=== PATIENT | male | born 1960 | race Caucasian/White ===

== ENCOUNTER 2019-01-25 00:34 | Outpatient (CLI) | payer MEDICAID, SELFPAY ==
--- NOTE | 2019-01-25 10:23 | DI.RAD_ITS ---
SYMPTOMS/DIAGNOSIS: SHOULDER PAIN, REDUCED RANGE OF MOTION, HX OVERUSE INJURY, PECTORALIS TENDERNESS, BONY EVAL FOR OA S29.011A, M25.512 LEFT SHOULDER: No fracture or dislocation is seen. The glenohumeral joint space is well maintained. There is no significant AC joint spurring. Scoliosis is seen in the upper thoracic spine. IMPRESSION: No acute abnormality.
[2019-01-25 11:13] LABS: HCT 43.9 % (40.0-50.0); HGB 15.2 g/dL (13.5-17.5); Mean Corp. HGB Concentration 34.6 g/dL (32.0-36.0); Mean Corpuscular Hemoglobin 31.1 pg (27.0-33.0); Platelet Count 151 x1000/uL (130-400); RBC 4.88 m/cumm (4.50-6.00); RBC Distribution Width 13.6 % (11.8-14.1); White Blood Cell Count 6.54 k/cumm (4.4-10.8)
[2019-01-25 11:56] LABS: Cholesterol 238 mg/dL (50-200)
[2019-01-25 12:02] LABS: ALT 136 U/L (12-78); AST 69 U/L (15-37); Albumin 3.9 g/dL (3.4-5.0); Alkaline Phosphatase 94 U/L (46-116); Anion Gap 9.3 mmol/L (3-11); BUN 13 mg/dL (7-18); Bilirubin, Total 0.4 mg/dL (0.2-1.0); CO2 27.7 mmol/L (21.0-32.0); CREATININE 0.91 mg/dL (0.70-1.30); Calcium 8.8 mg/dL (8.5-10.1); Chloride 102 mmol/L (98-107); Glucose 100 mg/dL (70-100); Potassium 4.4 mmol/L (3.5-5.1); Sodium 139 mmol/L (136-145); Total Protein 7.5 g/dL (6.4-8.2)
== END 2019-01-25 00:54 ==
PROVIDERS: PCP Student in an Organized Health Care Education/Training Program; Visit Provider Student in an Organized Health Care Education/Training Program
DX: M25.512 Pain in left shoulder (principal); N28.9 Disorder of kidney and ureter, unspecified; R06.02 Shortness of breath; R53.83 Other fatigue; Z13.220 Encounter for screening for lipoid disorders; Z79.1 Long term (current) use of non-steroidal anti-inflammatories (NSAID); Z13.1 Encounter for screening for diabetes mellitus
CPT/HCPCS: 36415; 80053; 85027; 73030; 82465

== ENCOUNTER 2019-03-24 11:22 | Outpatient (REF) | payer MEDICAID, SELFPAY ==
--- NOTE | 2019-03-24 10:00 | SKI_PTH ---
PATIENT: Sohan Damon LOC: [facility] U#:[id number] AGE/SX: 58/M ROOM: RE03/24/[address]: Deana Mendez : 1960 BED: DIS: 03/24/2019 SPEC #: [id number] RECD: 03/24/19 12:48 STATUS: RACHEL REQ #: [id number] LAURI: 03/24/19 10:[address]: Deana Mendez DEPT: Surgical Specimen RECD BY: Teresa Rodriguez ENTERED: 03/24/19 12:49 SP TYPE: PACO CHAND DR: Mignon Stewart DO Tissues: 1 - SKIN BIOPSY(SHAVE/PUNCH) Procedures: SKIN LEVEL 4 Comments: [id number]
== END 2019-03-24 11:42 ==
LOC: LBN 11:22
PROVIDERS: PCP Student in an Organized Health Care Education/Training Program; Visit Provider Surgery
DX: C44.319 Basal cell carcinoma of skin of other parts of face (principal)
CPT/HCPCS: 88305

== ENCOUNTER 2019-12-13 01:07 | Outpatient (CLI) | payer MEDICAID, SELFPAY ==
--- NOTE | 2019-12-13 10:14 | DI.US_ITS ---
EXAM: US HERNIA CLINICAL HISTORY: LLW/Left inguinal region r/o HERNIA R19.00 ABDOMINAL AND PELVIC SWELLING TECHNIQUE: Ultrasound performed using standard protocol. COMPARISON: No exams were available for comparison FINDINGS: Sonographic evaluation of the left inguinal region was performed. No sonographic evidence of an ingu inal hernia is noted. IMPRESSION: No sonographic evidence of a left inguinal hernia.
== END 2019-12-13 01:27 ==
PROVIDERS: PCP Student in an Organized Health Care Education/Training Program; Visit Provider Student in an Organized Health Care Education/Training Program
DX: R10.32 Left lower quadrant pain (principal); R19.04 Left lower quadrant abdominal swelling, mass and lump
CPT/HCPCS: 76857

== ENCOUNTER 2020-01-24 08:15 | Day surgery (SDC) | payer MEDICAID, SELFPAY ==
[2020-01-24] VITALS (9 sets, daily range): BP systolic 109–127; BP diastolic 71–96; PULSE 72–82; RESP 16–20; TEMP 36.4–36.7; O2SAT 92–96
--- NOTE | 2020-01-24 | PENILE_PTH ---
PATIENT: Sohan Damon LOC: [facility] U#:[id number] AGE/SX: 59/M ROOM: RE01/24/[address]: Deana Mendez : 1960 BED: DIS: 01/24/2020 SPEC #: [id number] RECD: 01/24/20 18:07 STATUS: RACHEL REQ #: [id number] LAURI: 01/24/20 00:[address]: Deana Mendez DEPT: Surgical Specimen RECD BY: Teresa Rodriguez ENTERED: 01/24/20 18:07 SP TYPE: PENILE OTHR DR: Mignon Stewart DO Tissues: 1 - PENILE CYST Procedures: GROSS AND MICRO LEVEL 3 Comments: [id number] (HPV/HL - [id number])
[2020-01-24] MEDS: Lactated Ringers 1,000 ML 80 ML IV ×2 (09:02→13:17)
[2020-01-24] MEDS: Acetaminophen 500 MG TAB 1000 MG PO (09:07)
[2020-01-24] MEDS: Gabapentin 300 MG CAP PO (09:07)
[2020-01-24] MEDS: ceFAZolin 2 GM/50 ML BAG IVPB (11:46)
[2020-01-24] MEDS: Bacitracin 30 GM TUBE (13:18)
--- NOTE | 2020-01-24 13:51 | W.PM.DSUDISC ---
Discharge Plan Disposition Patient Disposition: HOME Condition: Good Discharge Details Reason For Visit: (L) INGUINAL HERNIA Attending Provider: Deana Mendez Primary Care Provider: Mignon Stewart Home Meds and New Rx's Prescriptions: New ibuprofen [IBU-200] 200 mg tablet 600 mg PO Q6H PRN (Reason: pain (scale score 4-6)) Qty: 90 RF: 0 hydrocodone-acetaminophen [Medi[place]] 5-325 mg tablet 1 tab PO Q6H PRN (Reason: pain) Qty: 20 RF: 0 Continued albuterol sulfate [ProAir HFA] 90 mcg/actuation HFA aerosol inhaler 2 puff Inhalation Q4H PRN Qty: 1 RF: 2 (DME) Space Chamber Plus 1 EACH spacer Miscellaneous Qty: 1 RF: 0 fluticasone propion-salmeterol [Advair Diskus] 250-50 mcg/dose blister with device 1 inh IH BID Qty: 60 RF: 6 nystatin 100,000 unit/mL Suspension 10 ml PO BID RF: 0 fluticasone propion-salmeterol [Advair Diskus] 100-50 mcg/dose Blister With Device 1 inh INHALATION BID RF: 0 Discontinued naproxen sodium [Aleve] 220 mg capsule 220 mg PO BID PRNRF: 0 Discharge Instructions Additional Instructions: Dr. Mendez HERNIA REPAIR ? POSTOPERATIVE INSTRUCTIONS Patients who have this type of surgery can usually be expected to return to work within two weeks and have minimal amounts of discomfort. ? ACTIVITY: The day of surgery should be spent resting. However, you can be up for short periods of time, I.E., going to the bathroom or kitchen. Avoid lifting or straining. On the day following surgery, you can be up and about as desired. ? LIFTING: Restrict your lifting to no more than five (5) pounds for the first week following surgery. ? DIET: There are no dietary restrictions following surgery. However, you may want to start with small amounts of liquids to avoid nausea the day of surgery. ? INCISION CARE: After 24 hours you may shower. The dressing may be replaced for comfort, but is not necessary. An ice bag may be applied to the incision for 72 hours following surgery. Apply antibiotic ointment to penis 2-3x's per day. keep the incisions moist. ? SIGNS OF INFECTION: It is not unusual to have some black and blue discoloration of the skin around the incision, but also scrotum and penis. It will slowly disappear. If you have any increased redness, drainage, fever (above 100 degrees), please contact your doctor for an examination. ? DISCOMFORT: You may expect to have some mild discomfort at the incision sight. If severe pain develops you should contact your doctor for further instructions. ? URINATION: Patients who have surgery occasionally have problems urinating. If you experience problems and are not able to urinate within 6 hours following your surgery, please call your doctor immediately or go to your nearest Emergency Room for evaluation. ? DRIVING: NO driving for five (5) days after surgery ? MEDICATIONS: Alternate Tylenol 1000mg by mouth every 8hours and Ibuprofen 600mg every 6hours. Take the Tylenol and ibuprofen continuously for the first 72hrs- not just when you have pain. Use the Medi[place] for breakthrough pain. Use ice 20 minutes off/on continuously for the first 72hours. If you are taking narcotic pain medication, follow the instructions on the label and do not drive. Pain medications can make you very constipated. Make sure you are moving your bowels daily. If not, take Miralax, milk of magnesia or magnesium citrate. ? REPORT: Unusual swelling, severe pain, unresolved nausea, signs of infection, or difficulty in urination to your surgeon. Follow up in clinic with Dr. Mendez in 1-2 weeks [phone] Activity:: no lifting over 10#'s Remove Dressings/Wound Care:: 24 hours Shower/Bathe:: 24 hours Diet:: As Tolerated DS: Diagnosis Discharge Diagnosis (1) Condyloma acuminatum of penis: Status: Acute (2) Left inguinal hernia: Status: Acute
--- NOTE | 2020-01-24 14:04 | ROE_ITS ---
Date of service: 01/24/20 Time of Service: 14:04 Operative Note Operative Note DATE OF PROCEDURE: 01/24/20 PRE-OP DIAGNOSIS: left ing hernia penile condyloma POST-OP DIAGNOSIS: same PROCEDURE: open hernia repiar w/ mesh excision of condyloma SURGEON: Deana Berger ASSISTING SURGEON: To Sofia ANESTHESIA: GETA, regional and local ESTIMATED BLOOD LOSS: 10 PATHOLOGY: other COMPLICATIONS: None Patient was transported to: PACU Patient's condition: stable Implants: see RN notes Procedure Description: ANESTHESIA: General. ESTIMATED BLOOD LOSS: Less than 5 mL. COMPLICATIONS: The patient tolerated the procedure well without complications. INDICATIONS: regarding symptomatic right inguinal hernia that has failed outpatient conservative medical management and he is here today for repair. Informed consent was obtained, explaining risks and benefits of the procedure including but not limited to bleeding, infection, pneumonia, blood clots, chronic pain, chronic numbness, damage to testicle resulting in removal, recurrence, reaction to Mesh necessitating removal, and other unforetold complications and complications of anesthesia. The patient is marked in preop. DESCRIPTION OF PROCEDURE: was brought to the operative room suite. Anesthesia was administered per the Department of Anesthesia. The patient was prepped and draped in the usual sterile fashion using ChloraPrep scrub solution. Pause for the cause was done. He did receive preop IV antibiotics, 30 mL of 1% buffered lidocaine was used for local anesthetization. A #12 blade was used to make an incision over the external ring. Electrocautery used to provide hemostasis and dissect down to the fascia. The fascia was pretty much obliterated and there was nothing to open. The cord is elevated. The nerve was not identified. There is one medium cord lipomas. These are dissected off, tied off, ligated and retired to the abdominal cavity. A Manohar drain was placed around the cord to assist in mobilization. The cord was explored. There was a small hernia sac on the cord. This is dissected off bluntly. The transversalis is intact. The sac is elevated, adn returned to the abdominal cavity.. A small mesh plug was then placed into the defect and oversewn. The patch was then placed on the floor and sewn in using 2-0 Vicryl sewn into the pubic tubercle and the shelving portions of the inguinal ligament. There was really no external oblique to really reapproximate. The mesh patch is tucked under the remnants of the external oblique. The wound was copiously irrigated. There was no bleeding noted. The drain was removed. All structures are returned to normal anatomical position. Deep tissue was approximated with 3-0 Vicryl and skin was approximated with 4-0 Monocryl in a running subcuticular fashion. Skin glue is applied. attention is turned to the condyloma. There are wart-like in character. There are x3 1cm/1.2cm/2cm in size. These are on the shaft. no infections. These are removed and cauterized. The defect is closed w/ 4-0 chromic. sterile dressings are applied. The patient tolerated the procedure without complications to recovery in stable condition. DEANA BERGER, DO
[2020-01-24] MEDS: fentaNYL 100 MCG/2 ML VIAL IVP (14:20)
== END 2020-01-24 16:15 | disposition home or self-care (01) ==
PROVIDERS: PCP Student in an Organized Health Care Education/Training Program; Visit Provider Surgery
PROC: (CPT 49505; principal; 2020-01-24 10:45)
PROC: (CPT 49505; 2020-01-24 10:45)
DX: K40.90 Unilateral inguinal hernia, without obstruction or gangrene, not specified as recurrent (principal); A63.0 Anogenital (venereal) warts; F17.210 Nicotine dependence, cigarettes, uncomplicated
CPT/HCPCS: 49505; 54060; 76942; 88304; C1781; J0690; J1100; J1885; J2001; J2250; J2405; J2704; J3010

== ENCOUNTER 2021-01-12 02:32 | Outpatient (CLI) | payer MEDICAID, SELFPAY ==
[2021-01-12 08:57] LABS: HCT 46.4 % (40.0-50.0); HGB 15.5 g/dL (13.5-17.5); MCH 30.1 pg (27.0-33.0); MCHC 33.4 % (32.0-36.0); MCV 90.1 fL (80-95); Platelet Count 183 10^3/uL (130-400); RBC 5.15 10^6/uL (4.36-5.78); RDW 13.1 % (11.8-14.1); RDW-SD 43.7 fL; WBC 6.54 10^3/uL (4.4-10.8)
[2021-01-12 10:02] LABS: ALT 41 U/L (16-63); AST 19 U/L (15-37); Albumin 3.9 g/dL (3.4-5.0); Alkaline Phosphatase 99 U/L (46-116); Anion Gap 8.3 mmol/L (3-11); BUN 17 mg/dL (7-18); Bilirubin, Total 0.5 mg/dL (0.2-1.0); CO2 27.7 mmol/L (21.0-32.0); CREATININE 0.9 mg/dL (0.70-1.30); Calcium 8.8 mg/dL (8.5-10.1); Chloride 103 mmol/L (98-107); Glucose 108 mg/dL (74-106); Potassium 4.5 mmol/L (3.5-5.1); Sodium 139 mmol/L (136-145); Total Protein 7.3 g/dL (6.4-8.2)
[2021-01-12 10:57] LABS: Cholesterol 229 mg/dL (<200)
== END 2021-01-12 02:33 | disposition home or self-care (01) ==
LOC: LBO 02:32
PROVIDERS: PCP Student in an Organized Health Care Education/Training Program; Visit Provider Student in an Organized Health Care Education/Training Program
DX: R06.02 Shortness of breath (principal); R53.83 Other fatigue; J44.9 Chronic obstructive pulmonary disease, unspecified; N28.9 Disorder of kidney and ureter, unspecified; Z13.220 Encounter for screening for lipoid disorders; Z79.1 Long term (current) use of non-steroidal anti-inflammatories (NSAID); Z13.1 Encounter for screening for diabetes mellitus
CPT/HCPCS: 36415; 80053; 85027; 82465

== ENCOUNTER 2021-06-29 09:52 | Day surgery (SDC) | payer MEDICAID, SELFPAY ==
--- NOTE | 2021-06-29 09:55 | PDOC.DSDIS_ITS ---
Discharge Plan Disposition Patient Disposition: HOME Condition: Good Discharge Details Reason For Visit: colon scope Attending Provider: Deana Mendez Primary Care Provider: Mignon Stewart Home Meds and New Rx's Prescriptions: No Action fluticasone propion-salmeterol [Advair Diskus] 250-50 mcg/dose blister with device 1 inh IH BID Qty: 60 RF: 6 albuterol sulfate [ProAir HFA] 90 mcg/actuation HFA aerosol inhaler 2 puff Inhalation Q4H PRN Qty: 1 RF: 2 (DME) Space Chamber Plus 1 EACH spacer Miscellaneous Qty: 1 RF: 0 ibuprofen [IBU-200] 200 mg tablet 600 mg PO Q6H PRN (Reason: pain (scale score 4-6)) Qty: 90 RF: 0 Discharge Instructions Additional Instructions: DSU Colonoscopy Post- Op Instructions Instructions for Everyone who is given Anesthesia: For your safety, please do the following for the next twenty-four (24) hours: *Do Not operate a motor vehicle (car, truck, motorcycle, etc.) *Do Not drink alcoholic beverages or use any recreational drugs for the first 24 hours or while taking pain medications. The medications in your body may have a reaction that can be dangerous. *Do Not make any important decisions or sign any important papers. Findings: -diverticula-avoid straining to move your bowels. Make sure you are moving your bowels on a regular basis and not straining. -Large colon polyp. -Repeat colonoscopy in 1 years time. -Soft/low fiber and bland diet for 72 hours. -No ASA or NSAIDs x2 weeks. -No lifting over 5 pounds or strenuous activity x72 hours. -You will have some bleeding with your first bowel movement. If you are passing clots larger than your fist, please come to the emergency department. Follow up: 1. No lifting over 20 pounds or strenuous activity for the first 72 hours after your procedure. you may feel fatigued for a few days. 2. After you arrive home you may have a light meal. see above. 3. You may have a bloated, gaseous feeling in your belly (abdomen) after a colonoscopy. Passing gas and belching will help. Walking or lying down on your left side with your knees flexed may relieve the discomfort. Call the office at [phone] (Office) or [phone] (Hospital) right away if you notice any of the following: a.Vomiting of blood or ?coffee ground stools?. b.Rectal bleeding 1Tbsp, blood clots or continuous bleeding. c.Severe belly (abdominal) pain. d.A hard distended belly (abdomen) and an inability to pass gas. 4. Please don?t expect to have a normal BM (bowel movement) for 2-3 days after your procedure. 5. If there are questions regarding the findings of your procedure, please contact your doctor 6. If you are unable to contact your doctor with a problem, contact the hospital at [phone]. 7. Continue all your regular medications unless directed otherwise. I understand the above instructions and have no questions. Signature of Patient or Adult Escort Name of Responsible Adult Escort Signature of Nurse Date/Time Activity:: see above Diet:: see above Discharge Orders Discharge Orders: Discharge Order (Routine); Ordered 06/28/21 Ordered By: Deana Mendez DS: Diagnosis Discharge Diagnosis (1) Tobacco dependence: Status: Chronic (2) COPD (chronic obstructive pulmonary disease): Status: Chronic (3) Colon cancer screening: Status: Acute
--- NOTE | 2021-06-29 09:55 | W.COLOREPORT ---
Date of service: 06/29/21 Time of Service: 09:55 Colonoscopy Report Date of procedure: 06/29/21 Pre-op diagnosis general: +family HX Post-op diagnosis procedure note: other (polyps & diverticula ) Surgeon: Deana Mendez Anesthesia Type: General:No Airway Estimated blood loss (mL): 2 Pathology: other Complications: None Disposition: same day Prep: Miralax/Dulcolax Retraction Time: 20 Procedure Description: After informed consent was obtained the patient was taken to the procedure room and placed in a left decubitous position. Monitors were applied and a time out was done. The patients name, date of , procedure, allergies to medications and metal in their body was reviewed. The patient was then sedated. Once sedated and comfortable a rectal exam was done. External exam was - few ext hemorrhoids. Internal exam revealed a normal sphincter tone and no palpable masses. The scope was then introduced and retrofelexed. NO internal hemorrhoids were identified. The scope was then advanced to the cecum w/out difficulty. The TI and appendiceal orifice were identified. The prep was adequate-he has a large amount residual stool that is adherent to the wall. This extensively lavaged, But there still is large quantity, and polyps less than 5 mm may be missed. He has a small, less than 5 mm flat polyp at 80 cm. This is removed with a cold biting forcep. He has a 0.75 cm flat polyp at 30 cm. This is removed with a cold biting forcep. He has x2 additional 5 mm, flat polyps at 20 cm that are both removed with a cold biting forcep. He has a large 2 cm polyp at 20 cm. This is tattooed with Shanae ink. It is removed with a hot polypectomy snare. The specimen is retrieved. There is no bleeding noted. The clip is placed over the stalk. He has multiple diverticula that carry over from the sigmoid colon all the way over to the right colon. There is no signs of active bleeding or infection.. The scope was then slowly retracted over 20 minutes back into the rectum. The scope was removed and the patient was woken up and taken back to Same day surgery in stable condition. The patient tolerated the procedure well and there were no immediate complications. Follow up: The patient should follow up in 1 years unless they develop changes in bowel habits or other new gastrointestinal complaints.
[2021-06-29 10:12] VITALS: BP 120/84; PULSE 88; RESP 16; TEMP 36.4; O2SAT 98
--- NOTE | 2021-06-29 10:36 | ANES.PREOP_ITS ---
General Info Date of Service Date Performed: 06/29/21 Height: 5 ft 8.9 in Weight: 75 kg Body Mass Index (BMI): 24.5 Surgical Procedure: Operation Date: 06/29/21 11:05 Proposed Procedures Side Surgeon emma Mendez, DO Meds Allergies and Home Medications Allergies Allergy/AdvReac Type Severity Reaction Status Date / Time No Known Allergies Allergy Verified 06/29/21 10:23 Home Medication Medication Instructions Recorded Space Chamber Plus #1 10/24/17 albuterol sulfate 90 mcg/actuation 2 puff INHALATION Q4H PRN #1 11/14/18 aerosol inhaler inhaler ibuprofen [IBU-200] 600 mg PO Q6H PRN #90 tab 01/24/20 fluticasone 250 mcg-salmeterol 50 1 inh IH BID #60 each 01/19/21 mcg/dose blistr powdr for inhalation Current Visit Medications: Current Medications Generic Name Dose Route Start Last Admin Trade Name Freq PRN Reason Stop Dose Admin Ringer's Solution 1,000 mls @ 80 mls/hr 06/29/21 06:00 IV 07/28/21 23:59 INFUSION FLOYD IV Miscellaneous Supplies 1 each 06/29/21 06:00 Iv Access IV 07/28/21 23:59 DIRECTED FLOYD Sodium Chloride 0 ml 06/29/21 06:00 Normal Saline Flush 10 Ml Syr IV 07/28/21 23:59 PRN PRN Sodium Chloride 0 ml 06/29/21 06:00 Normal Saline 10 Ml Vial IJ 07/28/21 23:59 DIRECTED PRN Sterile Water 0 ml 06/29/21 06:00 Water,Injection,Sterile 10 Ml Vial IJ 07/28/21 23:59 DIRECTED PRN PFSH Active Problems Active Problems: Problem Status Onset Code Tobacco dependence 12/23/13 F17.200 Fatigue 12/2018 R53.83 Atypical chest pain 12/2018 R07.89 Strain of left pectoralis muscle 12/2018 S29.011A SOB (shortness of breath) on exertion 12/2018 R06.02 COPD (chronic obstructive pulmonary disease) 12/2017 J44.9 Basal cell carcinoma of left side of nose 03/24/19 C44.311 Postop check Z09 Testicle trouble N50.9 Colon cancer screening Z12.11 Condyloma acuminatum of penis A63.0 Umbilical hernia K42.9 Left inguinal hernia K40.90 Actinic keratosis due to exposure to sunlight L57.0, X32.XXXA Medical History Medical History Actinic keratosis due to exposure to sunlight Colon cancer screening Condyloma acuminatum of penis COPD (chronic obstructive pulmonary disease) Left inguinal hernia Umbilical hernia Surgical History Surgical History History of basal cell carcinoma excision nose History of left inguinal hernia repair (~01/25/20) Tobacco Smoking/Tobacco Use Status: Current every day Tobacco Type: cigarettes Smoking cigarettes per day: 1 Alcohol Alcohol Intake: current Alcohol intake frequency: 3 or more drinks per day Alcohol type: hard liquor Substance Use Substance use type: former substance user Date of last use: 07/20/2017 and marijuana Details: HS Vital Signs and Lab Results Vital Signs Most Recent Vital Signs in EMR: Most Recent Vital Signs Temp Pulse Resp BP Pulse Ox 36.4 C L 88 16 120/84 98 06/29/21 10:12 06/29/21 10:12 06/29/21 10:12 06/29/21 10:12 06/29/21 10:12 Lab Results Blood Type / Crossmatch: No Data to Display Complete Blood Count: No Data to Display Complete Metabolic Panel: No Data to Display Liver Function Panel: No Data to Display Coagulation Panel: No Data to Display Cardiac Panel: No Data to Display Arterial Blood Gas: No Data to Display Venous Blood Gas: No Data to Display Pancreas Panel: 2 No Data to Display Thyroid Panel: No Data to Display Infectious Disease: No Data to Display Blood Cultures: No Data to Display Toxicology Panel: No Data to Display Anesthesia Assessment and Plan Anesthesia History Personal History: No History of Anesthesia Complications Family History: No Family History of Anesthesia Complications Exercise Tolerance Exercise Tolerance: Metabolic Equivalents>4 Pertinent Negatives Pertinent Negatives: No Symptoms of GERD, No Major Cardiovascular Symptoms or Complaints, No History of CVA/TIA and Other (COPD, 1PPD smoker, daily inhaler used this AM) Cardiac & Pulmonary Exam Cardiac Exam: Normal S1/S2 Heart Sounds Pulmonary Exam: Clear Bilateral Breath Sounds and Other (Congested nonproductive cough) Airway Exam Known Difficult Airway: No Mallampati Class: 1 Mouth Opening: Normal (> 3cm) Thyromental Distance: Greater than 3 cm Neck Range of Motion: Full ROM Neck Circumference: Normal Teeth Condition: Normal Dentition ASA Classification ASA Score: ASA 2 Emergency Case?: No NPO Status NPO Status: NPO Clears >2 hours, Solids >8 hours Anesthesia Plan Resuscitation Status: Full Code Anesthesia Technique: General Anesthesia Airway Planned: Natural Airway Monitors Used: Standard Monitors
[2021-06-29] MEDS: Lactated Ringers 1,000 ML 80 ML IV (10:40)
[2021-06-29 10:46] VITALS: BMI 24.5
--- NOTE | 2021-06-29 11:05 | BOWEL_PTH ---
PATIENT: Sohan Damon LOC: [facility] U#:[id number] AGE/SX: 60/M ROOM: RE06/29/[address]: Deana Mendez : 1960 BED: DIS: 06/29/2021 SPEC #: [id number] RECD: 06/29/21 12:32 STATUS: RACHEL REShemar #: [id number] LAURI: 06/29/21 11:[address]: Deana Mendez DEPT: Surgical Specimen RECD BY: Teresa Rodriguez ENTERED: 06/29/21 12:35 SP TYPE: Bowel OTHR DR: Mignon Stewatr DO Tissues: 1 - BIOPSY BOWEL 2 - BIOPSY BOWEL 3 - BIOPSY BOWEL 4 - BIOPSY BOWEL Procedures: GROSS AND MICRO LEVEL 4 Comments: [id number]
[2021-06-29 11:34] VITALS: BP 129/80; PULSE 71; RESP 16; TEMP 36.5; O2SAT 96
--- NOTE | 2021-06-29 11:57 | W.ANESPOSTOP ---
Postoperative Evaluation Date, Time and Location Date Performed: 06/29/21 Time Performed: 11:57 Patient Location: Day Surgery Unit Vital Signs Most Recent Imported Vital Signs: Most Recent Vital Signs Temp Pulse Resp BP Pulse Ox 36.5 C 71 16 129/80 96 06/29/21 11:34 06/29/21 11:34 06/29/21 11:34 06/29/21 11:34 06/29/21 11:34 Pain Score Most Recent Pain Score: Most Recent Pain Score Pain Level 0 06/29/21 11:34 Assessment Mental Status: Awake (Alert & Oriented to Patient Baseline) Airway and Respiratory Function: Patent airway with normal (patient baseline) respiratory exam Cardiovascular Function: Hemodynamically Stable Hydration Status: Adequately Hydrated Nausea & Vomiting: No Nausea or Vomiting Pain: Pt. Denies Any Pain Peripheral Nerve Block: Patient did not receive a nerve block
[2021-06-29 12:08] VITALS: BP 153/89; PULSE 75; RESP 18; TEMP 36.4; O2SAT 98
== END 2021-06-29 12:24 | disposition home or self-care (01) ==
PROVIDERS: PCP Student in an Organized Health Care Education/Training Program; Visit Provider Surgery
PROC: 0DJD8ZZ Inspection of Lower Intestinal Tract, Via Natural or Artificial Opening Endoscopic (ICD-10-PCS; CPT 45378; principal; 2021-06-29 11:00)
DX: Z12.11 Encounter for screening for malignant neoplasm of colon (principal); D12.4 Benign neoplasm of descending colon; K57.30 Diverticulosis of large intestine without perforation or abscess without bleeding; F17.210 Nicotine dependence, cigarettes, uncomplicated; J44.9 Chronic obstructive pulmonary disease, unspecified; D12.5 Benign neoplasm of sigmoid colon
CPT/HCPCS: 45385; 45381; 45380; 88305; J2001

== ENCOUNTER 2021-09-10 08:02 | Outpatient (CLI) | payer MEDICAID, SELFPAY ==
[2021-09-10 19:50] LABS: COVID-19 RT-PCR UVMMC Result Negative (Negative)
== END 2021-09-10 08:03 | disposition home or self-care (01) ==
LOC: LBO 08:04
PROVIDERS: Family Medicine; PCP Student in an Organized Health Care Education/Training Program; Visit Provider Nurse Practitioner Family
DX: Z20.822 Contact with and (suspected) exposure to COVID-19 (principal)
CPT/HCPCS: U0003

== ENCOUNTER 2022-06-07 02:22 | Outpatient (CLI) | payer MEDICAID, SELFPAY ==
--- OUTSIDE RECORDS SUMMARY | 2022-06-07 02:32 | XMS_ITS | Encounter Summary ---
:1960 Author Organization [facility] [place] [address] Care Team Providers Name Role Phone Mignon Stewart DO Primary Care Provider Encounter Details Date Type Department Care Team Description 08/29/2020 Telephone Dermatology at [facility] Margaret Bowman LPN [address] [place] [address] Social History Tobacco Use Types Packs/Day Years Used Date Current Every Day Smoker Cigarettes 0.5 Smokeless Tobacco: Never Used Sex Assigned at Date Recorded Not on file documented as of this encounter Miscellaneous Notes Telephone Encounter - Margaret Bowman LPN - 08/29/2020 8:25 AM EDT 08/18/2020 Shave biopsy left lower eyelid Dx: Mild skin damage No skin cancer Dr. Gutierrez recommendation: No further treatment necessary, return to clinic as needed. Reviewed above information with patient. He voiced understanding. documented in this encounter Plan of Treatment Upcoming Encounters Date Type Specialty Care Team Description 07/26/2022 Office Visit Dermatology Joey Ibarra MD [address] [facility] [place], [place] [address] (Wo rk) documented as of this encounter Visit Diagnoses Not on filedocumented in this encounter Care Teams Quality Control Expert Relationship Specialty Start Date End Date Mignon Stewart DO PCP - General Family Medicine 04/19/19 [address] [place] [address] documented as of this encounter
--- OUTSIDE RECORDS SUMMARY | 2022-06-07 02:32 | XMS_ITS | Encounter Summary ---
:1960 Author Organization [facility] [place] [address] Care Team Providers Name Role Phone Mignon Stewart DO Primary Care Provider Reason for Visit Reason Comments Other new pt/ Consultation (Routine) - Closed Specialty Diagnoses / Procedures Referred By Contact Refer red To Contact Otolaryngology Diagnoses BASAL CELL CARCINOMA SIDE OF NOSE, PRS FOR COMPLETE EXCISION Mignon Stewart, [facility] [place] [address] [address] [place], [place] Phone: [phone] Referral ID Status Reason Start Date Expiration Date Visits V isits Requested Authorized [id number] Closed Consult, 04/19/2019 04/18/2020 1 1 [facility] Encounter Details Date Type Department Care Team Description 05/13/2019 Office Visit Otolaryngology at [facility] Deng Araujo Cancer of skin of [facility] Mal[place] [address] [facility] [phone] CENTER OTOLARYNGOLOGY DEPT. [place], [place] [address] Social History Tobacco Use Types Packs/Day Years Used Date Current Some Day Smoker Smokeless Tobacco: Never Used Sex Assigned at Date Recorded Not on file documented as of this encounter Last Filed Vital Signs Vital Sign Reading Time Taken Comments Blood Pressure 135/94 05/13/2019 9:13 AM EDT Pulse 75 05/13/2019 9:13 AM EDT Temperature - - Respiratory Rate 18 05/13/2019 9:13 AM EDT Oxygen Saturation 98% 05/13/2019 9:13 AM EDT Inhaled Oxygen Concentration - - Weight 77.9 kg (171 lb 12.8 oz) 05/13/2019 9:13 AM EDT Height 175.3 cm (5' 9) 05/13/2019 9:13 AM EDT Body Mass Index 25.37 05/13/2019 9:13 AM EDT documented in this encounter Progress Notes Deng Araujo MD - 05/13/2019 9:20 AM EDT Images from the original note were not included. Subjective: Patient ID: Sohan Damon is a 58 y.o. male. HPI Sohan Damon is seen in consultation from Mignon Stewart and Mignon Stewart DO in regards to management of newly diagnosed BCCa of the left nasal tip The following records were reviewed: office records, pathology The history is obtained through patient interview, review of relevant records, and/or discussion with referring provider. Relatively healthy patient with hx of multiple prior childhood sunburns who became aware of a small blister on the left nasal ala x Summer 2017 which has slowly grown since then. SOme discomfort, no pain or bleeding, no infection. Referred eventually to commercial assistant and bx done showing: Outside slide(s) labeled [id number], collection date 03/24/2019. Skin, left side of nose, shave biopsy: ??- Basal cell carcinoma, nodular type, present at the peripheral and deep specimen ??edges Some episodic bleeding since bx bit none otherwise. No change in ability of breathing through the nose, denies sinus complaints, no change in smell/taste, no epistaxis. Has had prior non melanoma skin cancers. Smokes 1 ppd x lifetime, no EtOHism, denies IVDU. No past medical history on file. No past surgical history on file. PMHx: COPD, arthritis, nicotine dependence Current Outpatient Medications: ??? ADVAIR DISKUS 250-50 mcg/dose Disk with Device, , Disp: , Rfl: No Known Allergies There is no problem list on file for this patient. No family history on file. There is no pertinent family history of otolaryngologic problems Review of Systems: A complete review of constitutional, eyes, cardiovascular, respiratory, GI, , musculo-skeletal, skin, endocrine, psychiatric, hematologic, lymphatic and immunologic systems is completed and is as noted in the HPI. All other systems are otherwise negative. Social History Socioeconomic History ??? Marital status: Unknown Spouse name: Not on file ??? Number of children: Not on file ??? Years of education: Not on file ??? Highest education level: Not on file Occupational History ??? Not on file Social Needs ??? Financial resource strain: Not on file ??? Food insecurity: Worry: Not on file Inability: Not on file ??? Transportation needs: Medical: Not on file Non-medical: Not on file Tobacco Use ??? Smoking status: Current Some Day Smoker ??? Smokeless tobacco: Never Used Substance and Sexual Activity ??? Alcohol use: Not on file ??? Drug use: Not on file ??? Sexual activity: Not on file Lifestyle ??? Physical activity: Days per week: Not on file Minutes per session: Not on file ??? Stress: Not on file Relationships ??? Social connections: Talks on phone: Not on file Gets together: Not on file Attends yazdanism service: Not on file Active member of club or organization: Not on file Attends meetings of clubs or organizations: Not on file Relationship status: Not on file ??? Intimate partner violence: Fear of current or ex partner: Not on file Emotionally abused: Not on file Physically abused: Not on file Forced sexual activity: Not on file Other Topics Concern ??? Not on file Social History Narrative ??? Not on file Review of Systems Objective: Physical Exam Constitutional: He is oriented to person, place, and time. He appears well- developed and well-nourished. No distress. HENT: Head: Normocephalic. Right Ear: Tympanic membrane, external ear and ear canal normal. No tenderness. No middle ear effusion. Left Ear: Tympanic membrane, external ear and ear canal normal. No tenderness. No middle ear effusion. Nose: Nose normal. No mucosal edema, sinus tenderness, nasal deformity or septal deviation. Mouth/Throat: Uvula is midline, oropharynx is clear and moist and mucous membranes are normal. No oral lesions. No trismus in the jaw. No oropharyngeal exudate. Eyes: Pupils are equal, round, and reactive to light. Conjunctivae and EOM are normal. No scleral icterus. Neck: Normal range of motion. Neck supple. Carotid bruit is not present. No tracheal deviation present. No thyroid mass and no thyromegaly present. Pulmonary/Chest: Effort normal. No stridor. No respiratory distress. Lymphadenopathy: He has no cervical adenopathy. Neurological: He is alert and oriented to person, place, and time. He has normal reflexes. No cranial nerve deficit. Skin: Skin is warm. He is not diaphoretic. No erythema. Psychiatric: He has a normal mood and affect. His behavior is normal. Judgment and thought content normal. Nursing note and vitals reviewed. Assessment and Plan: Patient with newly diagnosed nodular type BCCA. Discussed excision of this lesion with controlled margins. Discussed limitations of surgery, and risk that final margins may be still positive, discussedbest strategy is to do excision and reconstruction in a staged fashion. Discussed limitations of this approach and that reconstruction hopefully can be with a FTSG vs facial soft tissue rearrangement. Each procedure to be spaced by about 2 weeks to make sure that pathology is available. Discussed alsosmoking cessation. Consents signed documented in this encounter Plan of Treatment Upcoming Encounters Date Type Specialty Care Team Description 07/26/2022 Office Visit Dermatology Joey Ibarra MD [address] [facility] DERMATOLOGY [place], [place] [address] (Wo rk) documented as of this encounter Visit Diagnoses Diagnosis Cancer of skin of external nose documented in this encounter Care Teams Curtain Framer Relationship Specialty Start Date End Date Mignon Stewart DO PCP - General Family Medicine 04/19/19 [address] [place] [address] documented as of this encounter
--- OUTSIDE RECORDS SUMMARY | 2022-06-07 02:32 | XMS_ITS | Encounter Summary ---
:1960 Author Organization [facility] [place] [address] Care Team Providers Name Role Phone Mignon Stewart DO Primary Care Provider Encounter Details Date Type Department Care Team Description 04/21/2019 External Results Medical Records Provider, [place] [address] Social History Tobacco Use Types Packs/Day Years Used Date Never Assessed Sex Assigned at Date Recorded Not on file documented as of this encounter Plan of Treatment Upcoming Encounters Date Type Specialty Care Team Description 07/26/2022 Office Visit Dermatology Joey Ibarra MD [address] [facility] DERMATOLOGY [place], [place] [address] (Wo rk) documented as of this encounter Procedures Procedure Name Priority Date/Time Associated Diagnosis Comme nts SURGICAL PATHOLOGY Routine 04/21/2019 Results f or this SCAN procedure are i n the results section . documented in this encounter Results Scan Doc: Surgical Pathology (04/21/2019) Narrative This result has an attachment that is no t available. Mukesh Rodriguez MD MEDIA MGR SCAN EXT ORDR/RSLT documented in this encounter Visit Diagnoses Not on filedocumented in this encounter Care Teams Loan Supervisor Relationship Specialty Start Date End Date Mignon Stewart DO PCP - General Family Medicine 04/19/19 [address] [place] [address] documented as of this encounter
--- OUTSIDE RECORDS SUMMARY | 2022-06-07 02:32 | XMS_ITS | Encounter Summary ---
:1960 Author Organization [facility] [address] Care Team Providers Name Role Phone Mignon Stewart DO Primary Care Provider Reason for Visit Reason Onset Date Comments Appointment 02/15/2020 Encounter Details Date Type Department Care Team Description 02/15/2020 Telephone Otolaryngology at [facility] Jese [place] [address] Social History Tobacco Use Types Packs/Day Years Used Date Current Every Day Smoker Cigarettes 0.5 Smokeless Tobacco: Never Used Sex Assigned at Date Recorded Not on file documented as of this encounter Miscellaneous Notes Telephone Encounter - Aleisha Nino - 02/17/2020 9:44 AM EDT Spoke to patient and re-scheduled for March 16 and advised him if he had any concerns to call us. He asked if he was supposed to keep using the cream and I advised to keep doing as told unless it wascausing an issue. He said nope it looks great and he will continue as instructed. Della if this is not correct can you call him. thanks Telephone Encounter - Jese Bell - 02/15/2020 9:05 AM EDT Caller and relationship to patient (if other than patient): Sohan Mckinnonjuanita Best time to reach caller: anytime Message or Reason for Call: Sohan Damon cancelled his 02/23 follow up due to public health concerns. He does want to reschedule for a later date. Appt Needed and Reason: Return in about 6 weeks per SB basal cell carcinoma of nose Provider: Van documented in this encounter Plan of Treatment Upcoming Encounters Date Type Specialty Care Team Description 07/26/2022 Office Visit Dermatology Joey Ibarra MD [address] [place] [address] DERMATOLOGY [place], [place] [address] (Wo rk) documented as of this encounter Visit Diagnoses Not on filedocumented in this encounter Care Teams Chaplain Relationship Specialty Start Date End Date Mignon Stewart DO PCP - General Family Medicine 04/19/19 [address] [place] [address] documented as of this encounter
--- OUTSIDE RECORDS SUMMARY | 2022-06-07 02:32 | XMS_ITS | Encounter Summary ---
:1960 Author Organization [facility] [place] [address] Care Team Providers Name Role Phone Mignon Stewart DO Primary Care Provider Encounter Details Date Type Department Care Team Description 09/17/2019 Telephone Plastic Surgery at [facility] [place] [address] Social History Tobacco Use Types Packs/Day Years Used Date Current Some Day Smoker Smokeless Tobacco: Never Used Sex Assigned at Date Recorded Not on file documented as of this encounter Miscellaneous Notes Telephone Encounter - Maximino Kang - 09/17/2019 11:52 AM EDT CONFIRMED SX DATES OF 11/05 FOR EXCISION AND 11/19 FOR REPAIR. FOLLOWUP NOT INDICATED IN ORDERS documented in this encounter Plan of Treatment Upcoming Encounters Date Type Specialty Care Team Description 07/26/2022 Office Visit Dermatology Joey Ibarra MD [address] [facility] DERMATOLOGY [place], [place] [address] (Wo rk) documented as of this encounter Visit Diagnoses Not on filedocumented in this encounter Care Teams Agency Service Representative Relationship Specialty Start Date End Date Mignon Stewart DO PCP - General Family Medicine 04/19/19 [address] [place] [address] documented as of this encounter
--- OUTSIDE RECORDS SUMMARY | 2022-06-07 02:32 | XMS_ITS | Encounter Summary ---
:1960 Author Organization [facility] [address] Care Team Providers Name Role Phone Mignon Stewart DO Primary Care Provider Reason for Visit Reason Onset Date Comments Appointment 04/23/2019 Encounter Details Date Type Department Care Team Description 04/23/2019 Telephone Otolaryngology at [facility] [place] [address] Social History Tobacco Use Types Packs/Day Years Used Date Never Assessed Sex Assigned at Date Recorded Not on file documented as of this encounter Miscellaneous Notes Telephone Encounter - Nathalia Montgomery - 04/23/2019 12:31 PM EDT Caller and relationship to patient (if other than patient): Sohan Best time to reach caller: n/a Message or Reason for Call: Sohan called to say that he can do the appointment on May [address] Araujo. Appt Needed and Reason: n/a Provider: Dr Araujo documented in this encounter Plan of Treatment Upcoming Encounters Date Type Specialty Care Team Description 07/26/2022 Office Visit Dermatology Joey Ibarra MD [address] [facility] DERMATOLOGY [place], [place] [address] (Wo rk) documented as of this encounter Visit Diagnoses Not on filedocumented in this encounter Care Teams Configuration Management Advisor Relationship Specialty Start Date End Date Mignon Stewart DO PCP - General Family Medicine 04/19/[address] [place] [address] documented as of this encounter
--- OUTSIDE RECORDS SUMMARY | 2022-06-07 02:32 | XMS_ITS | Encounter Summary ---
:1960 Author Organization [facility] [address] Care Team Providers Name Role Phone Mignon Stewart DO Primary Care Provider Encounter Details Date Type Department Care Team Description 12/09/2019 Telephone Otolaryngology at [facility] [place] [address] Social History Tobacco Use Types Packs/Day Years Used Date Current Every Day Smoker Smokeless Tobacco: Never Used Sex Assigned at Date Recorded Not on file documented as of this encounter Plan of Treatment Upcoming Encounters Date Type Specialty Care Team Description 07/26/2022 Office Visit Dermatology Joey Ibarra MD [address] [place] [address] DERMATOLOGY [place], [place] [address] (Wo rk) documented as of this encounter Visit Diagnoses Not on filedocumented in this encounter Care Teams Community Outreach Coordinator Relationship Specialty Start Date End Date Mignon Stewart DO PCP - General Family Medicine 04/19/19 [address] [place] [address] documented as of this encounter
--- OUTSIDE RECORDS SUMMARY | 2022-06-07 02:32 | XMS_ITS | Encounter Summary ---
:1960 Author Organization [facility] [place] [address] Care Team Providers Name Role Phone Mignon Stewart DO Primary Care Provider Encounter Details Date Type Department Care Team Description 04/21/2019 [place] [address] Social History Tobacco Use Types Packs/Day Years Used Date Never Assessed Sex Assigned at Date Recorded Not on file documented as of this encounter Plan of Treatment Upcoming Encounters Date Type Specialty Care Team Description 07/26/2022 Office Visit Dermatology Joey Ibarra MD [address] [facility] DERMATOLOGY [place], [place] [address] (Wo rk) documented as of this encounter Procedures Procedure Name Priority Date/Time Associated Diagnosis Comme [facility] SURGICAL PATHOLOGY Routine 04/21/2019 2:36 PM Res ults for this REPORT EDT procedure are i n the results section. documented in this encounter Results Surgical Pathology Report (04/21/2019 2:36 PM EDT) Component Value Ref Test Analysis Performed At [facility] Surgical [id number] ? Location: [facility] Report The signing pathologist has (i) examined the relevant preparation(s) for the [facility]ORIAL specimen(s) and (ii) rendered or confirmed the diagnosis(es) . HOSPITAL LABORATORY . ?Surgic al Pathology DIAGNOSIS CONSULTATION CASE Outside slide(s) labeled [id number], collection date 03/24/20 19. Skin, left side of nose, shave biopsy: - Basal cell carcinoma, nod ular type, present at the peripheral and deep specimen edges Electronically signed by: ??Petros De La Rosa MD Verified: ??04/21/2019 ?Dermatopathologist, Bone & Soft Tissue Pathologist Performed at: ??-[facility] [place] [place] Dept. of Pathology, [place], [place] CLINICAL INFORMATION Specimen Submitted: CONSULTATION CASE A - 1 slide(s) labeled [id number], collection date 03/24/2019 . [id number] Report to: [facility] Surgical Pathology Department [facility], [facility], 2nd Floor [address] [place], [place] ??[address] SPECIMEN PROCESSING [facility] ([facility]) pathology slide(s) are reviewed. ??Refer to Diagnosis and Specimen Submitted for specific case infor marko. For the full text of the [facility] report(s) please refer t o Non- Documentation Pathology in the electronic health record (eDH). Specimen (Source) Anatomical Collection Method Collection Time Re ceived Time Location / / Volume Laterality 04/21/2019 2:36 PM EDT Mukesh Rodriguez MD PATHOLOGY/CYTOLOGY ORDERABLE S Performing Organization Address City/State/ZIP Code Phon e Number [address] documented in this encounter Visit Diagnoses Not on filedocumented in this encounter Care Teams Bee Tender Relationship Specialty Start Date End Date Mignon Stewart DO PCP - General Family Medicine 04/19/19 [address] [place] [address] documented as of this encounter
--- OUTSIDE RECORDS SUMMARY | 2022-06-07 02:32 | XMS_ITS | Encounter Summary ---
:1960 Author Organization [facility] [place] [address] Care Team Providers Name Role Phone Mignon Stewart DO Primary Care Provider Encounter Details Date Type Department Care Team Description 11/12/2019 Telephone Otolaryngology at [facility] Harris Bearden, [place] [address] Social History Tobacco Use Types Packs/Day Years Used Date Current Some Day Smoker Smokeless Tobacco: Never Used Sex Assigned at Date Recorded Not on file documented as of this encounter Miscellaneous Notes Telephone Encounter - Harris Bearden RN - 11/12/2019 10:56 AM EST Returned patient phone call at 10:45am. Patient concerned that he had surgery two days ago and his bandage is soaked. He wonders if he put too much vaseline on it. Discussed signs/symptoms of infection and patient denies all. He reports he feels well and has very little discomfort. Discussed drainage is normal after surgery and that bandage may get fairly saturated but would become less so. Should he have s/s of infection over the weekend he should be seen. He should call back with any questions or concerns and continue with the vaseline 2 times daily. He does not need to be excessive about the amount he puts on. Patient reports he understands and has no further questions. Followed up with Sirisha Ga APRN to ensure the information provided to him was accurate. She agreedwith nurse assessment and plan. documented in this encounter Plan of Treatment Upcoming Encounters Date Type Specialty Care Team Description 07/26/2022 Office Visit Dermatology Joey Ibarra MD [address] [place] [address] DERMATOLOGY [place], [place] [address] (Wo rk) documented as of this encounter Visit Diagnoses Not on filedocumented in this encounter Care Teams Superintendent Quarry Relationship Specialty Start Date End Date Mignon Stewart DO PCP - General Family Medicine 04/19/19 [address] [place] [address] documented as of this encounter
--- OUTSIDE RECORDS SUMMARY | 2022-06-07 02:32 | XMS_ITS | Encounter Summary ---
:1960 Author Organization [facility] [place] [address] Care Team Providers Name Role Phone Mignon Stewart DO Primary Care Provider Encounter Details Date Type Department Care Team Description 12/10/2019 Telephone Otolaryngology at [facility] Sirisha Ga APRN [facility] [place] [address] OTOLARYNGOLOGY DEPT. [phone] [place], [place] [address] (Wo rk) Social History Tobacco Use Types Packs/Day Years Used Date Current Every Day Smoker Smokeless Tobacco: Never Used Sex Assigned at Date Recorded Not on file documented as of this encounter Plan of Treatment Upcoming Encounters Date Type Specialty Care Team Description 07/26/2022 Office Visit Dermatology Joey Ibarra MD [address] [place] [address] DERMATOLOGY [place], [place] [address] (Wo rk) documented as of this encounter Visit Diagnoses Not on filedocumented in this encounter Care Teams Pediatric Physical Therapist Relationship Specialty Start Date End Date Mignon Stewart DO PCP - General Family Medicine 04/19/[address] [place] [address] documented as of this encounter
--- OUTSIDE RECORDS SUMMARY | 2022-06-07 02:32 | XMS_ITS | Encounter Summary ---
:1960 Author Organization [place] [place] [address] Care Team Providers Name Role Phone Mignon Stewart DO Primary Care Provider Reason for Visit Auth/Cert Specialty Diagnoses / Procedures Referred By Contact Refer red To Contact Diagnoses basal cell cancer Basal Cell Cancer Procedures PRO EXC SKIN MALIG 1.1-2CM FACE, FACIAL PRO FULL THICK GRFT HEAD, FAC, HAND <20SQC PRO ADJ TISS XFER LID, NOS, EAR <10SQCM EXC MALIGNANT LESION, 1.1 TO 2.0CM, NOSE (WRVU 2.62) FTSG, FREE, W/ CLOSURE DONOR SITE, 20 SQ CM OR LESS, NECK (WRVU 10.41) ADJ.TISSUE TRANSFER, REARRANGEMENT, 10SQ.CM OR LESS, NOSE (WRVU 9.23) Referral ID Status Reason Start Date Expiration Date Visits Requ ested Visits Authorized [id number] 1 1 Encounter Details Date Type Department Care Team Description 11/10/2019 Hospital Encounter Same Day Program at Alysa Araujo, [facility] [address] [place] [address] [place] [address] [phone] (Wo rk) Social History Tobacco Use Types Packs/Day Years Used Date Current Some Day Smoker Smokeless Tobacco: Never Used Sex Assigned at Date Recorded Not on file documented as of this encounter Last Filed Vital Signs Vital Sign Reading Time Taken Comments Blood Pressure 107/85 11/10/2019 9:45 AM EST Pulse 71 11/10/2019 9:07 AM EST Temperature 36.2 ??C (97.2 ??F) 11/10/2019 9:07 AM EST Respiratory Rate 24 11/10/2019 9:45 AM EST Oxygen Saturation 94% 11/10/2019 9:45 AM EST Inhaled Oxygen Concentration - - Weight 75.3 kg (166 lb) 11/10/2019 7:03 AM EST Height - - Body Mass Index 24.51 05/13/2019 9:13 AM EDT documented in this encounter Discharge Instructions Discharge InstructionsJohnathon Reid RN - 11/10/2019 9:49 AM EST Next dose of acetaminophen (tylenol) can be taken at __3pm__. POST ANESTHESIA INSTRUCTIONS Go home, rest, use caution on stairs. Change positions slowly. Do not smoke if you are alone. Diet light to regular as tolerated today. If nausea occurs start with clear liquids and progress slowly. No driving, operating machinery, alcoholic beverages and no important decisions for 24 hours. Monitor IV site for signs and symptoms of infection: increasing redness, swelling, foul drainage, ifoccurs contact M.D. Patients who have had endotrachial tubes (this tube, used by anesthesia department, is passed down your throat after you are asleep, to ensure safe air passage during your operation). A sore throat is normal due to the tube. Cold liquids or soothing lozenges will help ease the discomfort. The generalized muscle aches are due to the medication given to you just before the tube is inserted. As the medication wears off, you may develop muscle soreness, which usually goes away in 12-24 hours. Patient InstructionsHincRich fu MD - 11/10/2019 8:49 AM EST Instructions for Patient at Discharge: What to expect: You will have soreness which will improve over the next several days. The area around the incision may be numb. This should recover over the next few months. Medications: Antibiotics - take the antibiotics as prescribed Pain Control - use acetaminophen (Tylenol) and/or ibuprofen (Motrin, Advil) as needed. You can take 500 mg to 650 mg of Tylenol every 4-6 hours as needed. Do not exceed 4g acetaminophen per day and do not drink alcohol while taking tylenol. You can also take 400 to 600 mg of Ibuprofen (Motrin,Advil) every 6 hours as needed. Wound Care: Change the wound dressing/packing according to the following instructions: apply Aquaphor or Vaseline to your dressing twice daily until your next surgery. The dressing will be removed at that time. Activity: A good rule of thumb is if it hurts don't do it. Keep your head elevated when lying flat. No heavy lifting or straining for the next week. No smoking, this is important for wound healing. Diet: Resume baseline diet You should call your doctor if you develop: -Increasing pain and redness -Increasing drainage from the wound -Fever > 38.5Celsius or 101 Fahrenheit -Bleeding Contact: -You can reach the ENT clinic at [phone] for appointment questions. -The ENT triage nurse is available at [phone] -For urgent issues during evenings and weekends the ENT resident aviation safety inspector can be reached through the main hospital combiner operator at [phone] Follow Up: Your next surgery is scheduled for 11/19/19. You will receive further information about the time andpertinent instructions if you haven't already received them. You subsequent appointment is already scheduled and detailed below. Currently Scheduled Appointments and VNA instructions: Future Appointments and Orders Future Appointments and Orders Future Appointments Provider Department Dept Phone 11/30/2019 10:00 AM Sirisha Ga APRN Otolaryngology at [facility] Arrive at: Electronic Organ Technician Area [phone] documented in this encounter Medications at Time of Discharge Medication Sig Dispensed Refills Start Date End Date ADVAIR DISKUS 250-50 0 05/10/2019 mcg/dose Disk with Device cephALEXin (KEFLEX) 500 Take 1 capsule by 40 capsule 0 11/1911/30/2019 mg Capsule mouth 4 times daily. cephALEXin (KEFLEX) 500 Take 1 capsule by 28 capsule 0 11/1011/17/2019 mg Capsule mouth 4 times daily for 7 days. documented as of this encounter H&P Notes Johnathon White PA - 11/10/2019 6:36 AM EST 24-Hour Pre-Operative H&P Update Patient was seen in the Pre-Operative Area today. I have reviewed, and agree with, the clinical history, physical examination findings, impression, and plan, as detailed in the original H&P Note. No new clinically-significant changes to the patient's health. Patient is ready to proceed with the planned surgical procedure: Procedure(s): EXC MALIGNANT LESION, 1.1 TO 2.0CM, NOSE (WRVU 2.62) Johnathon White, MPAS, MS, PA-C, [place] [address] [email or web address] phone: [phone] Pager: [phone] 11/10/19 6:36 AM Patient Name: Sohan Damon Patient Age: 59 y.o. Birthdate: 1960 Admit date: 11/10/2019 Attending Physician: Christine Araujo MD documented in this encounter Miscellaneous Notes Op Note - Christine Araujo MD - 11/10/2019 9:47 AM EST [facility] Operative Note Patient Name: Sohan Damon : [id number] MR#: [id number] Case Date: 11/10/2019 Surgeon: Surgeon(s) and Role: * Christine Araujo MD - Primary Preoperative diagnosis: basal cell cancer Postoperative diagnosis: basal cell cancer Procedure(s) (LRB): EXC MALIGNANT LESION, 2.1 TO 3.0CM, NOSE (WRVU 3.42) (Left) DRESSING CHANGE (FOR OTHER THAN MADRID) UNDER ANES., HEAD (WRVU 0.86) (N/A) Anesthesia: General Estimated Blood Loss: * No values recorded between 11/10/2019 8:11 AM and 11/10/2019 8:54 AM * Specimens removed during surgery: Order Name Source Comment Collection Info Order Time SPECIMEN TO PATHOLOGY basal cell cancer Left nasal lesion 12 o' clock biopsy YES, Please perform frozen section 11/10/2019 8:20 AM Time specimen removed from patient: 8:17 AM SPECIMEN TO PATHOLOGY basal cell cancer Left nasal lesion 3 o'clock biopsy YES, Please perform frozen section 11/10/2019 8:20 AM Time specimen removed from patient: 8:17 AM SPECIMEN TO PATHOLOGY basal cell cancer Left nasal lesion 6 o'clock biopsy YES, Please perform frozen section 11/10/2019 8:20 AM Time specimen removed from patient: 8:18 AM SPECIMEN TO PATHOLOGY basal cell cancer Left nasal lesion 9 O'clock biopsy YES, Please perform frozen section 11/10/2019 8:20 AM Time specimen removed from patient: 8:19 AM SPECIMEN TO PATHOLOGY Excision of left nssal sill lesion suture at 12o'clock basal cell cancer Excision of left nssal sill lesion suture at 12o'clock excision 11/10/2019 8:29 AM Time specimen removed from patient: 8:29 AM Drains: * No LDAs found * Surgical Closure: bolster dressing placed Disposition: awakened from anesthesia, extubated and taken to the recovery room in a stable condition, having suffered no apparent untoward event. Condition: doing well without problems (Please see the Surgical Encounter Summary for any Implant and Specimen details pertinent to this patient.) HPI/Surgical Indications: 59-year-old male smoker with a lengthy history of a lesion consistent withbasal cell carcinoma on the skin of the left nasal tip. Recently began to bleed. He denies any nasalobstruction or epistaxis. We discussed at length with the patient the objective of the resection with clear margins. Because of his smoking, options of reconstructions will be limited. Procedure Description: After the patient was identified, he was taken to the operating room and placed in the supine position. General anesthesia was secured with an RA tube. At that point neurosurgical pledgets soaked in a mixture of cocaine and Afrin are placed in the left nasal cavity. Using a marking pen a 5 mm margin is taken from the visible periphery of the tumor. This will imply taking the skin of the left side of the nasal tip and nasal sill. This is then injected with 1% lidocaine with 1 and 200,000 epinephrine with good effect. The nose and surrounding fascial tissues are then prepped and draped in a standard fashion for this excision. The timeout is then completed. Using a 15 C blade the 12 o'clock position for the eventual specimen is marked. Circumferential incision is made around the lesion using the preoperative markings down to the perichondrium over the lateral perichondrium of the lower lateral cartilage. Dissection continues at that level to the deep tissues in a cylindrical fashion until the lesion is removed and hemostasis achieved with bipolar cautery. Frozen sections are taken in the quadrantic fashion at 12:00, 3:00, 6:00, and 9:00, and are all negative. After hemostasis is achieved, a bolster dressing is fashioned. We first place Adaptic which is custom cut to proper size and sutured in place using 4-0 chromic sutures. Afterwards additional sutures of4-0 chromic are placed in a radial fashion. A surgical sponge is then custom cut in order to fit the resection defect and covered with Xeroform. That bolster is put in place and the radial chromic sutures are done tied over to secure the Xeroform. Anesthesia was then reversed, the patient extubated, and transferred to the recovery room stable condition. All counts are correct. Blood loss is 10 mils. Infection Bundle used? No Attestation: Case Date: 11/10/2019 I performed this procedure without the involvement of a resident. CHRISTINE ARAUJO MD 11/10/2019 documented in this encounter Plan of Treatment Upcoming Encounters Date Type Specialty Care Team Description 07/26/2022 Office Visit Dermatology Joey Ibarra MD [address] [place] [address] DERMATOLOGY [place], [place] [address] (Wo rk) documented as of this encounter Procedures Procedure Name Priority Date/Time Associated Diagnosis Comme nts DRESSING CHANGE Routine 11/10/2019 9:02 AM (FOR OTHER THAN EST MADRID) UNDER ANES., HEAD EXC MALIGNANT Routine 11/10/2019 9:02 AM LESION, 2.1 TO EST 3.0CM, NOSE SPECIMEN TO Routine 11/10/2019 8:30 AM Results f or this PATHOLOGY EST procedure are i n the results section. SPECIMEN TO STAT 11/10/2019 8:20 AM Results f or this PATHOLOGY EST procedure are i n the results section. SPECIMEN TO STAT 11/10/2019 8:20 AM Results f or this PATHOLOGY EST procedure are i n the results section. SPECIMEN TO STAT 11/10/2019 8:20 AM Results f or this PATHOLOGY EST procedure are i n the results section. SPECIMEN TO STAT 11/10/2019 8:20 AM Results f or this PATHOLOGY EST procedure are i n the results section. SURGICAL PATHOLOGY Routine 11/10/2019 8:17 AM Res ults for this REPORT EST procedure are i n the results section. DRESSING CHANGE 11/10/2019 7:39 AM basal cell cancer (FOR OTHER THAN EST MADRID) UNDER ANES., HEAD (WRVU 0.86) EXC MALIGNANT 11/10/2019 7:39 AM basal cell cancer LESION, 2.1 TO EST 3.0CM, NOSE (WRVU 3.42) documented in this encounter Results Specimen to Pathology (11/10/2019 8:30 AM EST) Specimen Anatomical Collection Method Collection Time Receive d Time (Source) Location / / Volume Laterality AP Specimen 11/10/2019 8:30 AM 9 8:30 EST AM EST Narrative [facility] OR - 11/10/2019 8:30 AM EST Specimen requisition ordered. ??Separate Pathology report to follow Christine Araujo MD PATHOLOGY/CYTOLOGY ORDERABLE S Performing Organization Address City/[facility] [place] [address] Specimen to Pathology (11/10/2019 8:20 AM EST) Specimen Anatomical Collection Method Collection Time Receive d Time (Source) Location / / Volume Laterality AP Specimen 11/10/2019 8:20 AM 9 8:20 EST AM EST Narrative [facility] OR - 11/10/2019 8:20 AM EST Specimen requisition ordered. ??Separate Pathology report to follow Christine Araujo MD PATHOLOGY/CYTOLOGY ORDERABLE S Performing Organization Address City/[facility]/[place] [address] Specimen to Pathology (11/10/2019 8:20 AM EST) Specimen Anatomical Collection Method Collection Time Receive d Time (Source) Location / / Volume Laterality AP Specimen 11/10/2019 8:20 AM 9 8:20 EST AM EST Narrative [facility] - 11/10/2019 8:20 AM EST Specimen requisition ordered. ??Separate Pathology report to follow Christine Araujo MD PATHOLOGY/CYTOLOGY ORDERABLE S Performing Organization Address City/[facility]/[place] [address] Specimen to Pathology (11/10/2019 8:20 AM EST) Specimen Anatomical Collection Method Collection Time Receive d Time (Source) Location / / Volume Laterality AP Specimen 11/10/2019 8:20 AM 9 8:20 EST AM EST Narrative [facility] - 11/10/2019 8:20 AM EST Specimen requisition ordered. ??Separate Pathology report to follow Christine Araujo MD PATHOLOGY/CYTOLOGY ORDERABLE S Performing Organization Address City/[facility]/[place] [address] Specimen to Pathology (11/10/2019 8:20 AM EST) Specimen Anatomical Collection Method Collection Time Receive d Time (Source) Location / / Volume Laterality AP Specimen 11/10/2019 8:20 AM 9 8:20 EST AM EST Narrative [facility] - 11/10/2019 8:20 AM EST Specimen requisition ordered. ??Separate Pathology report to follow Christine Araujo MD PATHOLOGY/CYTOLOGY ORDERABLE S Performing Organization Address City/[facility] [place] [address] Surgical Pathology Report (11/10/2019 8:17 AM EST) Component Value Ref Test Analysis Performed At [facility] Method Time Signature Surgical [id number] ? Location: [facility]; [facility]; [facility] Report The signing pathologist has (i) examined the relevant preparation(s) for the [facility] specimen(s) and (ii) rendered or confirmed the diagnosis(es) . HOSPITAL LABORATORY . ?Surgic al Pathology DIAGNOSIS A - Left nasal, 12 o'clock, biopsy for frozen section: - Negative for carcinoma B - Left nasal, 3 o'clock, biopsy for frozen section: - Negative for carcinoma (see Discussion) C - Left nasal, 6 o'clock, biopsy for frozen section: - Negative for carcinoma D - Left nasal, 9 o'clock, biopsy for frozen section: - Negative for carcinoma - Follicular infundibular cyst E - Skin, left nasal, excision: - Basal cell carcinoma, nodular type and ulcerated, ?mar gins negative - ??Follicular infundibular cyst and f ocal ??actinic kerato sis Electronically signed by: ??Wilder JEAN, PhD, Jason Verified: ??11/18/2019 ?Dermatopathologist Performed at: ??-[facility] Dept. of Pathology, [place], [place] DISCUSSION B( 3 o'clock) - The cluster of bland epithelioid cells in the frozen section are not present in the permanent section. There is no evidence of m alignancy. CLINICAL INFORMATION Specimen Submitted: A - Left nasal lesion 12 o'clock for frozen section B - Left nasal lesion 3 o'clock for frozen section C - Left nasal lesion 6 o'clock for frozen section D - Left nasal lesion 9 o'clock for frozen section E - Excision of left nasal lesion suture at 12 o'clock Clinical History and Diagnosis: Basal cell cancer SPECIMEN PROCESSING A - Labeled/Fixative: Left nasal lesion 12 o'clock, fresh. Quantity/Size: Single, 0.4 x 0.2 x 0.2 cm. Tissue Description: Strip of pink red soft tissue. Sections/Processing: The specimen is totally subm itted for frozen section in 1 cassettes as follows: ?A1: ??Remaining tissue from frozen section B - Labeled/Fixative: Left nasal lesion 3 o'clock, fresh. Quantity/Size: Single, 0.6 x 0.3 x 0.2 cm. Tissue Description: [place] wide skin and subcutaneous tissue. Sections/Processing: The specimen is totally subm itted for frozen section in 1 cassettes as follows: ?B1: ??Remaining tissue from frozen section C - Labeled/Fixative: Left nasal lesion 6 o'clock, fresh. Quantity/Size: Single, 0.6 x 0.2 x 0.2 cm. Tissue Description: [place] white skin and subcutaneous tissue. . SPECIMEN PROCESSING Sections/Processing: The specimen is totally subm itted for frozen section in 1 cassettes as follows: ?C1: ??Remaining tissue from frozen section D - Labeled/Fixative: Left nasal lesion 9 o'clock, fresh. Quantity/Size: Single, 0.7 x 0.3 x 0.2 cm. Tissue Description: [place] white skin and subcutaneous tissue. Sections/Processing: The specimen is totally subm itted for frozen section in 1 cassettes as follows: ?D1: ??Remaining tissue from frozen section E - Labeled/Fixative: Excisi on of left nasal sill lesion suture at 12 o'clock, fresh. Quantity/Size: Single, 2.4 x 1.7 x 0.7 cm. Tissue Description: Pale pink skin with central polypoid-like, rubbery lesion extending to subcutaneous tissue, ??measuring 1.3 x 1 x 0.3 cm . Distace to: 12 o'clock: 0.5 cm, 3 o'clock: 0.2 cm, 6 o'clock: 0.7 cm, 9 o'clock: 0.2 cm Orientation : Suture at 12 o'clock. Ink designation: 12-3-6 o'clock: Inked black, 12-9-6 o'clock : Inked blue Sections/Processing: Entirely submitted in 9 cassettes as follows: ?E1-E2: ??12 o'clock tip radially sectioned and entirel y submitted ?E3-E4: ??6 o'clock tip radially sectioned and entirely submitted ?E5-E9: ??Remaining spe cimen serially sectioned from 12 o'clock to 6 o'clock ? perpendicular to longitudinal axis and entirely submi tted. ??saurabh ?Fro geoff Section FROZEN SECTION DIAGNOSIS AFS1 - Left nasal lesion 12 o'clock for frozen section: Negative for malignancy. BFS1 - Left nasal lesion 3 o'clock for frozen section Negative for malignancy. [place] epithelioid cell proliferat ion suggestive of incidental compound nevus. 11/10/19 08:57 / DAK CFS1 - Left nasal lesion 6 o'clock for frozen section: Negative for malignancy. DFS1 - Left nasal lesion 9 o'clock for frozen section: Negative for malignancy. 11/10/19 09:02 / DAK Electronically signed by: ??Ann-Marie Hernandez MD Verified: ??11/10/2019 ?Pathologist Performed at: ??-[facility] Dept. of Pathology, [place], [place] This intraoperative consultation should be interpreted as a preliminary diagnosis pending review of the entire specimen and sp ecial studies, if any. Specimen (Source) Anatomical Collection Method Collection Time Re ceived Time Location / / Volume Laterality 11/10/2019 8:17 AM EST Christine Araujo MD PATHOLOGY/CYTOLOGY ORDERABLE S Performing Organization Address City/State/[place] [address] [facility] [address] documented in this encounter Visit Diagnoses Not on filedocumented in this encounter Administered Medications Inactive Administered Medications - up to 3 most recent administrations Medication Order MAR Action Action Date Dose Rate Site acetaminophen (Tylenol) tablet Given 11/10/2019 7:08 AM EST 1,00 0 mg 1,000 mg 1,000 mg, Oral, ONCE, 1 dose, On Fri11/10/19 at 0730, Administer with SIP of H2O only., Day of Surgery (Day of Procedure), Routine clindamycin (CLEOCIN) 600mg in dextrose 5% 50mL 600 mg, Intravenous, EVERY 8 HOURS, First dose on Fri11/10/19 at 0700, Until Discontinued, Administer over 20 Minutes, Indication f or (Active or Suspected): Prophylaxis ibuprofen (Advil;Motrin) tablet 600 mg 600 mg, Oral, EVERY 6 HOURS PRN, Starting on 11/10 at 0852, Until Fri11/10/19 at 1221, Pain, Administer orally with milk or food to minimize GI irritation. Maximum dose of 3200 mg from all sources i n 24 hours, Routine lactated ringers infusion New Bag 11/10/2019 7:23 AM EST 1,000 mLs 100 mL/hr 1,000 mL, at 100 mL/hr, Intravenous, CONTINUOUS, Starting on Fri11/10/19 at 0730, Until Fri11/10/19 at 1011, Day of Surgery (Day of Procedure) lidocaine (XYLOCAINE) 10 mg/mL (1 %) injection Given 1 01/11/2019 7:21 AM EST 3 mg 3 mg 3 mg (0.3 mL), Subcutaneous, ONCE PRN, 1 dose, Starting on Fri11/10/19 at 0705, Until Fri11/10/19 at 0721, for discomfort with PIV insertion, Day of Surgery (Day of Procedure), Routine documented in this encounter Active and Recently Administered Medications Times are shown in EST. Scheduled Medication Order 11/08/2019 11/09/2019 11/10/2019 acetaminophen (Tylenol) tablet 1,000 mg (COMPLETED) 0708 (Given - Provider: Chiquita Gutierrez RN) 1,000 mg, Oral, ONCE, 1 dose, Fri at 0730, Administer with SIP of H2O only., Day of Surgery (Day of Procedure), Routine clindamycin (CLEOCIN) 600mg in dextrose 5% 50mL (COMPLETED) 0750 (Given - Provider: Naina Barillas CRNA) 600 mg, Intravenous, 30 MIN PRE-OP, 1 do se, Fri11/10/19 at 0730, Administer over 20 Minutes, Day of Surgery (Day of Procedure), Indication for (Active or Suspected): Prophylaxis clindamycin (CLEOCIN) 600mg in dextrose 5% 50mL 0700 (Due) 600 mg, Intravenous, EVERY 8 HOURS, Firs t dose on Fri11/10/19 at 0700, Until Discontinued, Administer over 20 Minutes, Indication for (Active or Suspected): Prophylaxis Continuous Medication Order 11/08/2019 11/09/2019 11/10/2019 lactated ringers infusion (CANCELED) 0723 (New Bag - Provider: Chiquita Gutierrez RN)0812 (Anesthesia Volume Adjustment - Provider: Naina Barillas CRNA) 1,000 mL, at 100 mL/hr, Intravenous, CON TINUOUS, Starting Fri11/10/19 at 0730, Until Fri11/10/19 at 1011, Day of Surgery (Day of Procedure) PRN Medication Order 11/08/2019 11/09/201911/10/2019 cocaine 4 % external solution (CANCELED) 0835 (Given - Provider: Christine Araujo MD - Comment: Surgical patties soaked in 4 ml of 4% topical cocaine+ 30 ml Afrin nasal spray used throughout the case) ONCE PRN, Starting Fri11/10/19 at 0835, Until Fri11/10/19 at 1221, Intra- Operative (Intra-Procedure) ibuprofen (Advil;Motrin) tablet 600 mg 600 mg, Oral, EVERY 6 HOURS PRN, Startin g Fri11/10/19 at 0852, Until Fri11/10/19 at 1221, Pain, Administer orally with milk or food to minimize GI irritation. Maximum dose of 3200 mg from all sources in 24 hours, Routine lidocaine (XYLOCAINE) 10 mg/mL (1 %) injection 3 mg (COMPLETED) 0721 (Given - Provider: Chiquita Gutierrez RN) 3 mg (0.3 mL), Subcutaneous, ONCE PRN, 1 dose, Starting Fri11/10/19 at 0705, Until Fri11/10/19 at 0721, for discomfort with PIV insertion, Day of Surgery (Day of Procedure), Routine lidocaine-EPINEPHrine 1 %-1:100,000 injection (CANCELED) 0834 (Given - Provider: Christine Araujo MD) ONCE PRN, Starting Fri11/10/19 at 0834, Until Fri11/10/19 at 1221, Intra- Operative (Intra-Procedure), Routine oxymetazoline (AFRIN) 0.05 % nasal spray (CANCELED) 0837 (Given - Provider: Christine Araujo MD - Comment: Surgical patties soaked in 4 ml of 4% topical cocaine+ 30 ml Afrin nasal spray used throughout the michelle) ONCE PRN, Starting Fri11/10/19 at 0837, Until Fri11/10/19 at 1221, Intra- Operative (Intra-Procedure), Routine povidone-iodine 5 % ophthalmic solution (CANCELED) 0835 (Given - Provider: Christine Araujo MD - Comment: used for prep) ONCE PRN, Starting Fri11/10/19 at 0835, Until Fri11/10/19 at 1221, Intra- Operative (Intra-Procedure), Routine documented in this encounter Care Teams Supervisor Cabinetmaker Relationship Specialty Start Date End Date Mignon Stewart DO PCP - General Family Medicine 04/19/[address] [place] [address] documented as of this encounter
--- OUTSIDE RECORDS SUMMARY | 2022-06-07 02:32 | XMS_ITS | Encounter Summary ---
:1960 Author Organization [facility] [place] [address] Care Team Providers Name Role Phone Mignon Stewart DO Primary Care Provider Encounter Details Date Type Department Care Team Description 03/13/2020 Telephone Otolaryngology at [facility] [place] [address] Social History Tobacco Use Types Packs/Day Years Used Date Current Every Day Smoker Cigarettes 0.5 Smokeless Tobacco: Never Used Sex Assigned at Date Recorded Not on file documented as of this encounter Miscellaneous Notes Telephone Encounter - Aleisha Nino - 03/13/2020 1:11 PM EDT [facility] [phone] to see if patient wants to push out appointment again or come in. If he wants to come in I need it to be on a Friday when is seeing patients. documented in this encounter Plan of Treatment Upcoming Encounters Date Type Specialty Care Team Description 07/26/2022 Office Visit Dermatology Joey Ibarra MD [address] [place] [address] DERMATOLOGY [place], [place] [address] (Wo rk) documented as of this encounter Visit Diagnoses Not on filedocumented in this encounter Care Teams Almond Roaster Relationship Specialty Start Date End Date Mignon Stewart DO PCP - General Family Medicine 04/19/[address] [place] [address] documented as of this encounter
--- OUTSIDE RECORDS SUMMARY | 2022-06-07 02:32 | XMS_ITS | Encounter Summary ---
:1960 Author Organization [facility] [place] [address] Care Team Providers Name Role Phone Terry Mignonmarybel Lopez DO Primary Care Provider Reason for Visit [...] Expiration Date Visits Requ ested Visits Authorized [id number] 1 1 Encounter Details Date Type Department Care Team Description 11/10/2019 Surgery Main Operating Room Christine Araujo E XC MALIGNANT LESION, [facility] 2.1 TO 3.0CM, [facility] [place] (WRVU 3.42) [facility] [address] [place] [address] [place] [address] [phone] (Wo rk) Social History Tobacco Use Types Packs/Day Years Used Date Current Some Day Smoker Smokeless Tobacco: Never Used Sex Assigned at Date Recorded Not on file documented as of this encounter Last Filed Vital Signs Vital Sign Reading Time Taken Comments Blood Pressure 132/79 11/10/2019 9:07 AM EST Pulse 71 11/10/2019 9:07 AM EST Temperature 36.2 ??C (97.2 ??F) 11/10/2019 9:07 AM EST Respiratory Rate 24 11/10/2019 9:07 AM EST Oxygen Saturation 94% 11/10/2019 9:07 AM EST Inhaled Oxygen Concentration - - [...] -You can reach the ENT clinic at [phone] for appointment questions. -The ENT triage nurse is available at [phone] -For urgent issues during evenings and weekends the ENT resident combination worker can be reached through the main hospital box lining machine operator at [phone] Follow Up: Your next surgery is scheduled for 11/19/19. You will receive further information about the time andpertinent instructions if you haven't already received them. You subsequent appointment is already scheduled and detailed below. Currently Scheduled Appointments and VNA instructions: Future Appointments and Orders Future Appointments and Orders Future Appointments Provider Department Dept Phone 11/30/2019 10:00 AM Sirisha Ga APRN Otolaryngology at [facility] Arrive at: [employer] Area [phone] documented in this encounter Medications at Time [...] 1.1 TO 2.0CM, NOSE (WRVU 2.62) Johnathon White MPAS, MS, PA-C, [place] [address] [email or web address] phone: [phone] Pager: [phone] 11/10/19 6:36 AM Patient Name: Sohan Damon Patient Age: 59 y.o. Birthdate: 1960 Admit date: 11/10/2019 Attending Physician: Christine Araujo MD documented in this encounter Miscellaneous Notes Op Note - Christine Araujo MD - 11/10/2019 9:47 AM EST [facility] Operative Note Patient Name: Sohan Damon : [id number] MR#: [id number] Case Date: 11/10/2019 Surgeon: Surgeon(s) and Role: [...] Office Visit Dermatology Joey Ibarra MD [address] [facility] DERMATOLOGY [place], [place] [address] (Wo rk) documented as [...] AM 9 8:30 EST AM EST Narrative [facility] - 11/10/2019 8:30 AM EST Specimen requisition ordered. ??Separate Pathology report to follow Christine Araujo MD PATHOLOGY/CYTOLOGY ORDERABLE S Performing Organization Address City/[facility] [place] [address] Specimen to Pathology (11/10/2019 8:20 AM EST) Specimen Anatomical Collection Method Collection Time Receive d Time (Source) Location / / Volume Laterality AP Specimen 11/10/2019 8:20 AM 9 8:20 EST AM EST Narrative [facility] - 11/10/2019 8:20 AM EST Specimen requisition ordered. ??Separate Pathology report to follow Christine Araujo MD PATHOLOGY/CYTOLOGY ORDERABLE S Performing Organization Address City/[facility]/[place]IP [place] [address] Specimen to Pathology (11/10/2019 8:20 AM EST) Specimen Anatomical Collection Method Collection Time Receive d Time (Source) Location / / Volume Laterality AP Specimen 11/10/2019 8:20 AM 9 8:20 EST AM EST Narrative [facility] - 11/10/2019 8:20 AM EST Specimen requisition ordered. ??Separate Pathology report to follow Christine Araujo MD PATHOLOGY/CYTOLOGY ORDERABLE S Performing Organization Address [facility]/[place] [address] Specimen to Pathology (11/10/2019 8:20 AM EST) Specimen Anatomical Collection Method Collection Time Receive d Time (Source) Location / / Volume Laterality AP Specimen 11/10/2019 8:20 AM 9 8:20 EST AM EST Narrative [facility] - 11/10/2019 8:20 AM EST Specimen requisition ordered. ??Separate Pathology report to follow Christine Aarujo MD PATHOLOGY/CYTOLOGY ORDERABLE S Performing Organization Address City/[facility] [place] [address] Specimen to Pathology (11/10/2019 8:20 AM EST) Specimen Anatomical Collection Method Collection Time Receive d Time (Source) Location / / Volume Laterality AP Specimen 11/10/2019 8:20 AM 9 8:20 EST AM EST Narrative [facility] - 11/10/2019 8:20 AM EST Specimen requisition ordered. ??Separate Pathology report to follow Christine Araujo MD PATHOLOGY/CYTOLOGY ORDERABLE S Performing Organization Address City/[facility] [place] [address] Surgical Pathology Report (11/10/2019 8:17 AM EST) Component Value Ref Test Analysis [facility] Range Method Time Signature Surgical [id number] ? Location: [facility]; [facility]; A [facility] Report The signing pathologist has (i) examined [...] PhD, Jason Verified: ??11/18/2019 ?Dermatopathologist Performed at: ??-[facility] Dept. of Pathology, [place], [place] DISCUSSION B( 3 o'clock) - The [...] x 0.3 x 0.2 cm. Tissue Description: [place] wide skin and subcutaneous tissue. Sections/Processing: The specimen is totally subm itted for frozen section in 1 cassettes as follows: ?B1: ??Remaining tissue from frozen section C - Labeled/Fixative: Left nasal lesion 6 o'clock, fresh. Quantity/Size: Single, 0.6 x 0.2 x 0.2 cm. Tissue Description: [place] white skin and subcutaneous tissue. . SPECIMEN PROCESSING Sections/Processing: The specimen is totally subm itted for frozen section in 1 cassettes as follows: ?C1: ??Remaining tissue from frozen section D - Labeled/Fixative: Left nasal lesion 9 o'clock, fresh. Quantity/Size: Single, 0.7 x 0.3 x 0.2 cm. Tissue Description: [place] white skin and subcutaneous tissue. Sections/Processing: The [...] o'clock for frozen section Negative for malignancy. [place] epithelioid cell proliferat ion suggestive of incidental compound nevus. 11/10/19 08:57 / DAK CFS1 - Left nasal lesion 6 o'clock for frozen section: Negative for malignancy. DFS1 - Left nasal lesion 9 o'clock for frozen section: Negative for malignancy. 11/10/19 09:02 / DAK Electronically signed by: ??Ann-Marie Hernandez MD Verified: ??11/10/2019 ?Pathologist Performed at: ??-[facility] Dept. of Pathology, [place], [place] This intraoperative consultation should be interpreted as a preliminary diagnosis pending review of the entire specimen and sp ecial studies, if any. Specimen (Source) Anatomical Collection Method Collection Time Re ceived Time Location / / Volume Laterality 11/10/2019 8:17 AM EST Christine Araujo MD PATHOLOGY/CYTOLOGY ORDERABLE S Performing Organization Address City/State/[facility] [place] [address] [facility] [address] documented in this encounter Visit [...] Indication f or (Active or Suspected): Prophylaxis cocaine 4 % external solution Given 11/10/2019 8:35 AM 1 Bottle 19- Surgi delmi Site ONCE PRN, Starting on Fri EST 11/10/19 at 0835, Until Fri11/10/19 at 1221, Intra-Operative (Intra-Procedure) ibuprofen (Advil;Motrin) tablet 600 mg 600 [...] Surgery (Day of Procedure), Routine lidocaine-EPINEPHrine 1 Given 11/10/2019 8:34 AM 3 mLs 19- Surgical Site %-1:100,000 injection EST ONCE PRN, Starting on Fri11/10/19 at 0834, Until Fri11/10/19 at 1221, Intra-Operative (Intra-Procedure), Routine oxymetazoline (AFRIN) 0.05 % Given 11/10/2019 8:37 AM 3 sprays 19- Surgical Site nasal spray EST ONCE PRN, Starting on Fri11/10/19 at 0837, Until Fri11/10/19 at 1221, Intra-Operative (Intra-Procedure), Routine povidone-iodine 5 % ophthalmic Given 11/10/2019 8:35 AM EST 30 m Ls 19- Surgical Site solution ONCE PRN, Starting on Fri11/10/19 at 0835, Until Fri11/10/19 at 1221, Intra-Operative (Intra-Procedure), Routine documented in this encounter Active and [...] (Day of Procedure) PRN Medication Order 11/08/2019 11/09/2019 11/10/2019 cocaine 4 % external solution (CANCELED) 0835 [...] mg/mL (1 %) injection 3 mg (COMPLETED) 07 (Given - Provider: Chiquita Gutierrez RN) 3 [...] Routine documented in this encounter Care Teams Regional Forester Relationship Specialty Start Date End Date Mignon Stewart DO PCP - General Family Medicine 04/19/19 [address] [place] [address] documented as of this encounter
--- OUTSIDE RECORDS SUMMARY | 2022-06-07 02:32 | XMS_ITS | Encounter Summary ---
:1960 Author Organization [facility] Address [facility] [place] [address] Care Team Providers Name Role Phone Mignon Stewart DO Primary Care Provider Reason for Visit Auth/Cert Specialty Diagnoses / Procedures Referred By Contact Refer red To Contact Diagnoses Basal Cell Cancer Procedures PRO FULL THICK GRFT HEAD, FAC, HAND <20SQC PRO ADJ TISS XFER LID, NOS, EAR <10SQCM FTSG, FREE, W/ CLOSURE DONOR SITE, 20 SQ CM OR LESS, NECK (WRVU 10.41) ADJ.TISSUE TRANSFER, REARRANGEMENT, 10SQ.CM OR LESS, NOSE (WRVU 9.23) Referral ID Status Reason Start Date Expiration Date Visits Requ ested Visits Authorized [id number] 1 1 Encounter Details Date Type Department Care Team Description 11/19/2019 Surgery Main Operating Room Deng Araujo F TSG, FREE, W/ CLOSURE Sherie De Leon MD DONOR SITE, 20 SQ CM OR Hospital [facility] LESS, NECK (WRVU 10.41) [facility] [address] [place] [address] [place] [address] [phone] (Wo rk) Social History Tobacco Use Types Packs/Day Years Used Date Current Some Day Smoker Smokeless Tobacco: Never Used Sex Assigned at Date Recorded Not on file documented as of this encounter Last Filed Vital Signs Vital Sign Reading Time Taken Comments Blood Pressure 129/90 11/19/2019 2:58 PM EST Pulse 79 11/19/2019 2:58 PM EST Temperature 36.2 ??C (97.2 ??F) 11/19/2019 2:58 PM EST Respiratory Rate 16 11/19/2019 2:58 PM EST Oxygen Saturation 100% 11/19/2019 2:58 PM EST Inhaled Oxygen Concentration - - Weight 75.3 kg (166 lb 0.1 oz) 11/19/2019 2:58 PM EST Height 175.3 cm (5' 9) 11/19/2019 2:58 PM EST Body Mass Index 24.51 11/19/2019 2:58 PM EST documented in this encounter Discharge Instructions Discharge InstructionsOlivia Lackey RN - 11/19/2019 6:52 PM EST POST ANESTHESIA INSTRUCTIONS Go home, rest, use [...] usually goes away in 12-24 hours. Patient InstructionsJohnathon White PA - 11/19/2019 6:31 PM EST Instructions for Patient at Discharge: What to expect: You will have soreness which will improve over the next several days. The area around the incision may be numb. This should recover over the next few months. Medications: Antibiotics - take the antibiotics as prescribed Take Keflex 500mg four times per day . Pain Control - use acetaminophen (Tylenol) and/or ibuprofen (Motrin, Advil) as needed. You can take 500 mg to 650 mg of Tylenol every 4-6 hours as needed. Do not exceed 4g acetaminophen per day and do not drink alcohol while taking tylenol. You can also take 400 to 600 mg of Ibuprofen (Motrin,Advil) every 6 hours as needed. Incision Care: Your incision was closed with sutures. These will need to be removed in about 7- 14 days, which will usually occur at your follow up appointment. Use diluted peroxide to clean the incision and apply antibiotic ointment twice daily. Keep the incision dry for the next two days. After that you may get thearea wet and pat dry (it is okay to shower). Do not submerge the incision for at least 2 weeks. Wound Care: Apply Aquaphor to neck incision as needed to keep moist Activity: A good rule of thumb is [...] -You can reach the ENT clinic at [phone] for appointment questions. - The ENT triage nurse is available at [phone] -For urgent issues during evenings and weekends the ENT resident talent acquisition partner can be reached through the main hospital hydro operator at [phone] Follow Up: You will need to follow up in 10days. This appointment has been requested. You will be notified onceit is scheduled, if you do not already see it below. If you do not hear from us in a timely manner, please call to receive your date and time. You will also need to follow up with speech therapy and nutrition, which has been set up for you, aswell. We will try our best to coordinate this with your other appointments. You will be notified once it is scheduled. If you do not see these appointments listed below and you don't hear from us in a timely manner, please call . Currently Scheduled Appointments and VNA instructions: Future Appointments and Orders Future Appointments and Orders Future Appointments Provider Department Dept Phone 11/30/2019 10:00 AM Sirisha Ga APRN [place] [facility] [place] at: Masonry Inspector Area 4F [phone] documented in this encounter Medications at Time of Discharge Medication Sig Dispensed Refills Start Date End Date ADVAIR DISKUS 250-50 0 05/10/2019 mcg/dose Disk with Device cephALEXin (KEFLEX) 500 Take 1 capsule by 40 capsule 0 11/1911/30/2019 mg Capsule mouth 4 times daily. documented as of this encounter H&P Notes Deng Araujo MD - 11/19/2019 4:38 PM EST INTERVAL H&P S: Sohan Damon's condition unchanged since H&P originally performed Denies any new ED visits, hospitalizations, trauma, or new events. Has been overall doing well. O: Patient Vitals for the past 24 hrs: BP Temp Temp src Pulse Resp SpO2 Height Weight 11/19/19 1458 129/90 36.2 ??C (97.2 ??F) Temporal 79 16 100 % 175.3 cm (5' 9) 75.3 kg (166 lb 0.1 oz) NAD, A&Ox3 Non-labored respirations, clear to auscultation bilaterally Regular rate and rhythm, no murmur on auscultation Site marked AP: 59 y.o. male with Basal Cell Cancer. - After extensive discussion of the risks, benefits, and alteratives of surgical intervention, the patient consented to proceed with surgery. - IV antibiotics ordered - Proceed to OR for: Procedure(s): FTSG, FREE, W/ CLOSURE DONOR SITE, 20 SQ CM OR LESS, NECK (WRVU 10.41) ADJ.TISSUE TRANSFER, REARRANGEMENT, 10SQ.CM OR LESS, NOSE (WRVU 9.23) Rich Rolon MD ENT ATTENDING STAFF NOTE: I personally reviewed the above note including the documented history. Reviewed with the patient andhis that the final margins of his resection were clear. I examined the patient, as well as reviewed personally all additional investigations. I agree with the outlined plan. Deng Araujo MD documented in this encounter Miscellaneous Notes Op Note - Deng Araujo MD - 11/19/2019 6:52 PM EST [facility] [place] Patient Name: Sohan Damon : [id number] MR#: [id number] Case Date: 11/19/2019 Surgeon: Surgeon(s) and Role: * Deng Araujo MD - Primary * Johnathon White PA - Physician Second Steward * Rich Rolon MD - Resident Preoperative diagnosis: Basal Cell Cancer Postoperative diagnosis: Basal Cell Cancer Procedure(s) (LRB): FTSG, FREE, W/ CLOSURE DONOR SITE, 20 SQ CM OR LESS, NECK (WRVU 10.41) (Left) ADJ.TISSUE TRANSFER, REARRANGEMENT, 10SQ.CM OR LESS, NOSE (WRVU 9.23) (Left) Findings: 2x2.5cm defect of the left nasal ala that was filled with a FTSG from the left clavicular region. Donor site closed primarily and bolster dressing placed on the nasal wound. Anesthesia: General Estimated Blood Loss: 10 mL Specimens removed during surgery: None Drains: None Surgical Closure: Primary Closure - skin incision is completely closed without any wires, marilee, drains or other devices Disposition: awakened from anesthesia, extubated and taken to the recovery room in a stable condition, having suffered no apparent untoward event. Condition: doing well without problems (Please see the Surgical Encounter Summary for any Implant and Specimen details pertinent to this patient.) HPI/Surgical Indications: 59 yo man s/p resection of a left nasal BCC who presents for reconstruction. Procedure Description: The patient was transported to the OR where he was correctly identified and properly positioned on the OR table. He is status post removal of a basal cell cancer on the lateral aspect of the left nasal tip. Final pathology showed that margins were completely clear. General anesthesia was then induced without complication. The patient was then turned 90 degrees to ENT and a time out was performed. The patient was then prepped and draped in the usual sterile fashion. The previous surgical defect was measured at 2 x 2.5 cm, in a circular pattern. The full-thickness skin graft was then planned and marked in the left supraclavicular region. A template of the defect was created using a suture pack and transferred to the left neck where it was marked. It was then injected with lidocaine and epinephrine and a 15 blade was used to incise the skin into the subcutaneous tissues. The 15 blade was then used to raise the full-thickness skin graft. Fine tissue scissors were then used to defat the graft. The incision was then undermined using monopolar cautery and Surgicel was laid into the wound. The wound was then closed in sequential manner using 3-0 Vicryl and 4-0 Prolene. We then turned our attention to the reconstruction of the nasal defect. There previously placed bolster dressing had been completely removed. We started by undermining the edges of the defect along theleft nasal sill. Using 4-0 chromic the graft was secured to the nasal skin. The graft was trimmed where needed to allow for proper fit. After circumferentially suturing the full-thickness skin graft into place a 20-gauge needle was used to make a number of holes in the graft to allow for drainage. A bolster dressing of Xeroform was then secured into place using 4-0 chromic. At the conclusion of the case the patient was turned back to anesthesia. The patient's emergence from anesthesia was without complication and he was transported to the recovery area where he was doing well at the time of handoff. All counts were correct at the end of the case. Infection Bundle used? N/A Attestation: Case Date: 11/19/2019 I was present and I participated during the entire procedure (does not need to include opening and closing). DENG ARAUJO MD 11/19/2019 documented in this encounter Plan of Treatment Upcoming Encounters Date Type Specialty Care Team Description 07/26/2022 Office Visit Dermatology Joey Ibarra MD [address] [facility] D[facility]MAT[facility] [place], [place] [address] (Wo rk) documented as of this encounter Procedures Procedure Name Priority Date/Time Associated Diagnosis Comme nts ADJ.TISSUE TRANSFER, 11/19/2019 4:48 PM EST Basal Cell Cancer REARRANGEMENT, 10SQ.CM OR LESS, NOSE (WRVU 9.23) FTSG, FREE, W/ CLOSURE 11/19/2019 4:48 PM EST Basal Ce ll Cancer DONOR SITE, 20 SQ CM OR LESS, NECK (WRVU 10.41) documented in this encounter Visit Diagnoses Not on filedocumented in this encounter Administered Medications Inactive Administered Medications - up to 3 most recent administrations Medication Order MAR Action Action Date Dose Rate Site acetaminophen (Tylenol) tablet 650 mg 650 mg, Oral, EVERY 4 HOURS PRN, Starting on 11/19 at 1841, Until Fri11/19/19 at 2135, Pain, Maximum dose of acetaminophen is 4000 mg from all sources in 24 hours., Routine ceFAZolin (ANCEF) 2g in dextrose 5% 100 mL Given 11/19/2019 5:00 PM EST 2 g 2 g, Intravenous, EVERY 8 HOURS, First dose on Fri11/19/19 at 1700, Until Discontinued, Administer over 30 Minutes, Indication for (Active or Suspected): Prophylaxis ibuprofen (Advil;Motrin) tablet 600 mg 600 mg, Oral, EVERY 6 HOURS PRN, Starting on 11/19 at 1841, Until Fri11/19/19 at 2135, Pain, Administer orally with milk or food to minimize GI irritation. Maximum dose of 3200 mg from all sources i n 24 hours, Routine lactated ringers infusion New Bag 11/19/2019 5:11 PM EST 1,000 mL, at 100 mL/hr, Intravenous, CONTINUOUS, Starting on Fri11/19/19 at 1530, Until Fri11/19/19 at 1934, Day of Surgery (Day of Procedure) New Bag 11/19/2019 3:30 PM EST 1,000 mLs 100 mL/hr lidocaine-EPINEPHrine 1 Given 11/19/2019 6:23 PM 8 mLs 19- Surgical Site %-1:100,000 injection EST ONCE PRN, Starting on Fri11/19/19 at 1823, Until Fri11/19/19 at 2135, Intra-Operative (Intra-Procedure), Routine documented in this encounter Active and Recently Administered Medications Times are shown in EST. Scheduled Medication Order 11/17/2019 11/18/2019 11/19/2019 ceFAZolin (ANCEF) 2g in dextrose 5% 100 mL 1700 (Given - Provider: Hasmukh Castañeda CRNA) 2 g, Intravenous, EVERY 8 HOURS, First d ose on Fri11/19/19 at 1700, Until Discontinued, Administer over 30 Minutes, Indication for (Active or Suspected): Prophylaxis Continuous Medication Order 11/17/2019 11/18/2019 11/19/2019 lactated ringers infusion (CANCELED) 1530 (New Bag - Provider: Kaalni Holly RN)1710 (Anesthesia Volume Adjustment - Provider: Robin Valles CRNA)171 (New Bag - Provider: Robin Valles CRNA)182 (Stopped - Provider: Robin Valles CRNA) 1,000 mL, at 100 mL/hr, Intravenous, CON TINUOUS, Starting Fri11/19/19 at 1530, Until Fri11/19/19 at 1934, Day of Surgery (Day of Procedure) PRN Medication Order 11/17/2019 11/18/2019 11/19/2019 acetaminophen (Tylenol) tablet 650 mg 650 mg, Oral, EVERY 4 HOURS PRN, Startin g Fri11/19/19 at 1841, Until Fri11/19/19 at 2135, Pain, Maximum dose of acetaminophen is 4000 mg from all sources in 24 hours., Routine ibuprofen (Advil;Motrin) tablet 600 mg 600 mg, Oral, EVERY 6 HOURS PRN, Startin g Fri11/19/19 at 1841, Until Fri11/19/19 at 2135, Pain, Administer orally with milk or food to minimize GI irritation. Maximum dose of 3200 mg from all sources in 24 hours, Routine lidocaine-EPINEPHrine 1 %-1:100,000 injection (CANCELED) 1822 (Given - Provider: Deng Araujo MD - Comment: infiltration) ONCE PRN, Starting Fri11/19/19 at 1823, Until Fri11/19/19 at 2135, Intra- Operative (Intra-Procedure), Routine documented in this encounter Care Teams Paper And Pulp Mill Worker Relationship Specialty Start Date End Date Mignon Stewart DO PCP - General Family Medicine 04/19/19 [address] [place] [address] documented as of this encounter
--- OUTSIDE RECORDS SUMMARY | 2022-06-07 02:32 | XMS_ITS | Encounter Summary ---
:1960 Author Organization [facility] [place] [address] Care Team Providers Name Role Phone Mignon Stewart DO Primary Care Provider Encounter Details Date Type Department Care Team Description 08/18/2020 Hospital [place] [address] Social History Tobacco Use Types Packs/Day Years Used Date Current Every Day Smoker Cigarettes 0.5 Smokeless Tobacco: Never Used Sex Assigned at Date Recorded Not on file documented as of this encounter Medications at Time of Discharge Medication Sig Dispensed Refills Start Date End Date ADVAIR DISKUS 250-50 0 05/10/2019 mcg/dose Disk with Device fluticasone INHALE 1 PUFF BY 0 05/29/2020 propion-salmeteroL MOUTH TWICE A DAY (ADVAIR) 100-50 mcg/dose Disk with Device documented as of this encounter Plan of Treatment Upcoming Encounters Date Type Specialty Care Team Description 07/26/2022 Office Visit Dermatology Joey Ibarra MD [address] [facility] DER[facility]OLOG[facility] [place], [place] [address] (Wo rk) documented as of this encounter Visit Diagnoses Not on filedocumented in this encounter Care Teams Double Bass Player Relationship Specialty Start Date End Date Mignon Stewart DO PCP - General Family Medicine 04/19/[address] [place] [id number] documented as of this encounter
--- OUTSIDE RECORDS SUMMARY | 2022-06-07 02:32 | XMS_ITS | Encounter Summary ---
:1960 Author Organization [facility] [place] [address] Care Team Providers Name Role Phone Mignon [...] Expiration Date Visits Requ ested Visits Authorized [id number] 1 1 Encounter Details Date Type Department Care Team Description 11/19/2019 [facility] [address] [place] [address] [place] [address] [phone] (Wo rk) Social History Tobacco Use Types Packs/Day Years Used Date Current Some Day Smoker Smokeless Tobacco: Never Used Sex Assigned at Date Recorded Not on file documented as of this encounter Last Filed Vital Signs Vital Sign Reading Time Taken Comments Blood Pressure 135/94 11/19/2019 7:00 PM EST Pulse 79 11/19/2019 2:58 PM EST Temperature 36.2 ??C (97.2 ??F) 11/19/2019 6:36 PM EST Respiratory Rate 16 11/19/2019 6:45 PM EST Oxygen Saturation 95% 11/19/2019 7:00 PM EST Inhaled Oxygen Concentration - - [...] -You can reach the ENT clinic at [phone] for appointment questions. - The ENT triage nurse is available at [phone] -For urgent issues during evenings and weekends the ENT resident director of corporate communications can be reached through the main hospital burring wheel operator at [phone] Follow Up: You will need to follow [...] 10:00 AM Sirisha Ga APRN Otolaryngology at [facility] [place] Arrive at: Stamp Machine Servicer Area 4F [phone] documented in this encounter Medications at Time of Discharge Medication Sig Dispensed Refills Start Date End Date ADVAIR DISKUS 250-50 0 05/10/2019 mcg/dose Disk with Device cephALEXin (KEFLEX) 500 Take 1 capsule by 40 capsule 0 11/1911/30/2019 mg Capsule mouth 4 times daily. documented as of this encounter H&P Notes Christine Araujo MD - 11/19/2019 4:38 PM EST [...] investigations. I agree with the outlined plan. Christine Araujo MD documented in this encounter Miscellaneous Notes Op Note - Christine Araujo MD - 11/19/2019 6:52 PM EST [facility] [place] Operative Note Patient Name: Sohan Damon : [id number] MR#: [id number] Case Date: 11/19/2019 Surgeon: Surgeon(s) and Role: * Christine Araujo MD - Primary * Johnathon Wihte PA - Physician Landing Man * Rich Rolon MD - Resident Preoperative [...] not need to include opening and closing). CHRISTINE ARAUJO MD 11/19/2019 documented in this encounter Plan of Treatment Upcoming Encounters Date Type Specialty Care Team Description 07/26/2022 Office Visit Dermatology Joey Ibarra MD [address] [facility] DER[facility] [place], [place] [address] (Wo rk) documented as [...] 3:30 PM EST 1,000 mLs 100 mL/hr documented in this encounter Active and Recently [...] infusion (CANCELED) 1530 (New Bag - Provider: Kalani Holly RN)1710 (Anesthesia Volume Adjustment - Provider: Robin Valles CRNA)1711 (New Bag - Provider: Robin Valles CRNA)1822 (Stopped - Provider: Robin Valles CRNA) 1,000 [...] %-1:100,000 injection (CANCELED) 1822 (Given - Provider: Christine Araujo MD - Comment: infiltration) ONCE PRN, Starting Fri11/19/19 at 1823, Until Fri11/19/19 at 2135, Intra- Operative (Intra-Procedure), Routine documented in this encounter Care Teams Trash Truck Driver Relationship Specialty Start Date End Date Mignon Stewart DO PCP - General Family Medicine 04/19/19 [facility] [place] [address] documented as of this encounter
--- OUTSIDE RECORDS SUMMARY | 2022-06-07 02:32 | XMS_ITS | Encounter Summary ---
:1960 [place] [address] Care Team Providers Name Role Phone Mignon [...] Expiration Date Visits Requ ested Visits Authorized [id number] 1 1 Encounter Details Date Type Department Care Team Description 11/10/2019 Anesthesia Event Main Operating Room Theodore Rowell [facility] [place] [address] [facility] (Former[facility]) Naina Barillas [facility] [address] [place] [address] [facility] [place] [address] Anesthesia Record Procedure Summary Procedure Name Responsible Anesthesia Start Anesthesia Stop Time Anesthesiologist Time EXC MALIGNANT Theodore Rollins DO 11/10/19 0739 11/10/19 0907 LESION, 2.1 TO 3.0CM, NOSE (WRVU 3.42) (Left Nose) Events Date Time Event Comment 11/10/2019 0720 0739 AN Verify 0739 Start 0739 An Start Data 0746 An Induction 0748 An Intubation 0750 Anesthesia Ready 0756 Quick Note Local anesthetic injection by surgeon 0811 Procedure Start 0902 Extubation/LMA Out 0904 an stop data 0907 Recovery or ICU Handoff Patient care was transferred to the destination unit staff after review of the patient's medica l history, current anesthetic/surgi delmi status and plan, according to the Provider Handoff Checklist. 0907 Stop Name Total Midazolam 2 mg IV Lidocaine 100 mg Propofol 400 mg Rocuronium 5 mg Ondansetron 4 mg Dexamethasone 8 mg clindamycin (CLEOCIN) 600mg in dextrose 5% 50mL 600 mg Succinylcholine 100 mg Dexmedetomidine 8 mcg Propofol INF 180.72 mg lactated ringers infusion 300 mL Agents Name O2 Air N2O Sevoflurane (et) Blood No blood administrations on file. Lines, Drains, and Airways Type Details Placement Removal Incision 11/10/19; nose 11/10/19 0000 by Nely Tellez, YANET PIV 11/10/19; 0722; metacarpal 11/10/19 0722 by 10/31 12/19 1011 by Jeanette, vein (top of hand), right; Chiquita Gutierrez , YANET Goff RN [id number] catheter system; 20 gauge, 1 in length; intradermal injection; no longer indicated, catheter/device intact; 11/10/19; 1011 ETT Mask Ventilation: Easy (1); 11/10/19 0748 by Tyler parks, 11/10/19 0902 by Nargis ETT Type: Cuffed, Oral, GISELLA; MAKAYLA Grimes ra, CRNA ETT Size: 7.5 mm; Mac Blade: 3; Notes: Asleep, Pre-O2, Stylette; Attempts: 1; Laryngoscopy Grade: 1; ETT Placement Verified By: Auscultation, Capnometry; Secured at Teeth: 22 cm; Inserted by: Naina Barillas CRNA documented in this encounter Social History Tobacco Use Types Packs/Day Years Used Date Current Some Day Smoker Smokeless Tobacco: Never Used Sex Assigned at Date Recorded Not on file documented as of this encounter OR Notes Anesthesia Postprocedure Evaluation - Theodore Rollins DO - 11/10/2019 2:28 PM EST Department of Anesthesiology Post-procedure Note Patient: Sohan Damon Procedure Summary Date: 11/10/19 Room / Location: [facility] MA[facility] OR Anesthesia Start: 738 Anesthesia Stop: 906 Procedures: EXC MALIGNANT LESION, 2.1 TO 3.0CM, NOSE (WRVU 3.42) (Left Nose) DRESSING CHANGE (FOR OTHER THAN MADRID) UNDER ANES., HEAD (WRVU 0.86) (N/A Head) Diagnosis: (basal cell cancer) Surgeon: Deng Araujo MD Responsible Provider: Theodore Rollins DO Anesthesia Type: general ASA Status: 2 All Anesthesia Providers: Anesthesiologist: Theodore Rollins DO STARCH TREATING ASSISTANT: Naina Barillas CRNA Vitals Value Taken Time BP 107/85 11/10/2019 9:45 AM Temp Pulse Resp 24 11/10/2019 9:45 AM SpO2 95 % 11/10/2019 9:49 AM Pain Level 0 11/10/2019 9:45 AM Vitals shown include unvalidated device data. Patient Location: PACU/[facility] Level of Consciousness: Awake and Alert Pain Management: Satisfactory Analgesia PONV: None Cardiovascular Status: Hemodynamically Stable Respiratory Status: Stable Respiratory Status Postoperative Fluid Status: Intravascular EUvolemia Possible Anesthetic Complications: NONE apparent at time of evaluation Final Primary Anesthesia Type: General (The anesthetic type performed was the same as planned.) Comments: Anesthesia Preprocedure Evaluation - Theodore Rollins DO - 11/09/2019 3:45 PM EST Pre-Anesthesia Evaluation for: Sohan Damon a 59 y.o. male. Procedure(s): EXC MALIGNANT LESION, 1.1 TO 2.0CM, NOSE (WRVU 2.62) Patient Active Problem List Diagnosis ??? Cancer of skin of external nose No past medical history on file. No past surgical history on file. Social History Tobacco Use ??? Smoking status: Current Some Day Smoker ??? Smokeless tobacco: Never Used Substance Use Topics ??? Alcohol use: Not on file Social History Substance and Sexual Activity Drug Use Not on file No Known Allergies Medications: MAR and/or home medications have been reviewed. Physical Exam: There were no vitals filed for this visit. There is no height or weight on file to calculate BMI. Airway Assessment: Mallampati: I TM distance: >3 FB Neck ROM: full Cardiovascular Assessment: Rhythm: regular Rate: normal Pulmonary Assessment: breath sounds clear to auscultation Dental Assessment: Comment: Without loose dentition Misc Assessment: Patient is wearing No contact(s). IV access: Peripheral line Anesthesia Plan: ASA 2 general, with a(n) intravenous induction 59 yr old male for excision of BCC from nose. PMH: smoker and COPD on inhalers. No changes in his health except for treatment for thrush with niastatin. NPO black coffee 4 am Region - Other Informed Consent: Anesthetic plan and risks discussed with patient. Plan discussed with STARCH TREATING ASSISTANT and attending. PAT Clinic Note documented in this encounter Plan of Treatment Upcoming Encounters Date Type Specialty Care Team Description 07/26/2022 Office Visit Dermatology Joey Ibarra MD [address] [place] [address] DERMATOLOGY [place], [place] [address] (Wo rk) documented as of this encounter Visit Diagnoses Not on filedocumented in this encounter Administered Medications Inactive Administered Medications - up to 3 most recent administrations Medication Order MAR Action Action Date Dose Rate Site clindamycin (CLEOCIN) 600mg in Given 11/10/2019 7:50 AM EST 600 mg dextrose 5% 50mL 600 mg, Intravenous, 30 MIN PRE-OP, 1 dose, On Fri11/10/19 at 0730, Administer over 20 Minutes, Day of Surgery (Day of Procedure), Indication for (Active or Suspected): Prophylaxis dexamethasone (DECADRON) injection Given 11/10/2019 7:50 AM EST 8 mg PRN, Starting on Fri11/10/19 at 0750, Until Fri11/10/19 at 0911, Anesthesia Intra-op, Routine dexmedetomidine (PRECEDEX) injection Given 11/10/2019 7:54 AM EST 8 mcg PRN, Starting on Fri11/10/19 at 0754, Until Fri11/10/19 at 0911, Anesthesia Intra-op, Routine lidocaine (PF) (XYLOCAINE) 100 mg/5 mL (2 %) Given 10/2019 7:46 AM EST 100 mg injection PRN, Starting on Fri11/10/19 at 0746, Until Fri11/10/19 at 0911, Anesthesia Intra-op, Routine midazolam (PF) (VERSED) multi-dose injec tion Given 11/10/2019 7:39 AM EST 2 mg PRN, Starting on Fri11/10/19 at 0739, Until Fri11/10/19 at 09, Anesthesia Intra-op, Routine ondansetron (ZOFRAN) injection Given 11/10/2019 8:38 AM EST 4 mg PRN, Starting on Fri11/10/19 at 0838, Until Fri11/10/19 at 09, Anesthesia Intra-op, Routine propofol (DIPRIVAN) 10 mg/mL bolus injection Given 10/2019 7:54 AM EST 100 mg (Anesthesia) PRN, Starting on Fri11/10/19 at 0746, Until Fri11/10/19 at 09, Anesthesia Intra-op Given 11/10/2019 7:48 AM EST 100 mg Given 11/10/2019 7:46 AM EST 200 mg propofol (DIPRIVAN) infusion New Bag 11/10/2019 7:50 AM 50 mcg/kg/min 22.6 mL/hr CONTINUOUS PRN, Starting on EST Fri11/10/19 at 0750, Until Fri11/10/19 at 09, Anesthesia Intra-op, Routine rocuronium (ZEMURON) multi-dose injectio n Given 11/10/2019 7:46 AM EST 5 mg PRN, Starting on Fri11/10/19 at 0746, Until Fri11/10/19 at 09, Anesthesia Intra-op, Routine succinylcholine chloride (Quelicin) inje ction Given 11/10/2019 7:47 AM EST 100 mg PRN, Starting on Fri11/10/19 at 0747, Until Fri11/10/19 at 09, Anesthesia Intra-op, Routine documented in this encounter Care Teams Coal Passer Relationship Specialty Start Date End Date Mignon Stewart DO PCP - General Family Medicine 04/19/[address] [place] [address] documented as of this encounter
--- OUTSIDE RECORDS SUMMARY | 2022-06-07 02:32 | XMS_ITS | Encounter Summary ---
:1960 Author Organization [facility] [place] [address] Care Team Providers Name Role Phone Mignon Stewart DO Primary Care Provider Reason for Visit Reason Comments Skin Check Consultation (Routine) - Specialty Diagnoses / Procedures Referred By Contact Refer red To Contact Dermatology Diagnoses Basal cell carcinoma of skin of nose Actinic keratosis Other specified personal risk factors, not elsewhere classified BCC L side of nose/Actinic Keratosis/Exposure to sunlight Mignon Stewart DO Hammer, Charles J, MD Procedures Consult [address] [place], [place] DERMATOLOGY [id number] [place] [id number] Fax: Referral ID Status Reason Start Date Expiration Date Visits V isits Requested Authorized [id number] 01/28/2020 01/27/2021 1 1 Encounter Details Date Type Department Care Team Description 08/18/2020 Office Visit Dermatology at [facility], History of basal cell carcinoma; Kory JEAN Condyloma acuminatum [address] [facility] Nile Lopez DERMATOLOGY [place], [place] [id number] [phone] Social History Tobacco Use Types Packs/Day Years Used Date Current Every Day Smoker Cigarettes 0.5 Smokeless Tobacco: Never Used Sex Assigned at Date Recorded Not on file documented as of this encounter Progress Notes Joey Ibarra MD - 08/18/2020 1:30 PM EDT Problem: 1. New patient, initial visit, skin lesions of concern 2. 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 Has had a lot of sun exposure over the years. He is referred by his PCP for a general skin checkup following his relatively recent BCCdiagnosis of the left nasal ala. He states that he uses SPF 100 sunscreen every day now. Physical examination reveals a pleasant 59-year-old gentleman who has a well- healed surgical excision site on the left nasal ala with a graft that is taken well. He has no evidence of recurrent tumor there. He has a pearly papule he states of 6 months duration on the left lower eyelid at about its midpoint. Is concerning for possible BCCA. Otherwise careful examination of the head and the neck the chest the back the hands the arms informs thighs and the calves is benign. There is no evidence of any malignant lesions. He has significant solar damage of the sun exposed skin of the face the chest the back hands and forearms. Assessment and plan: History of BCCA left nasal ala 1. No evidence of recurrence Rule out BCCA left lower eyelid at its midpoint 1. Today after obtaining informed consent, the site was anesthetized and a shave biopsy obtained andsubmitted for pathologic analysis 2. Specimen submitted to [facility] pathology 3. If positive would recommend Mohs surgery for its excision. 4. We will contact patient with the biopsy in 1 week Photodamage 1. Patient reassured about the remainder of his benign skin examination 2. 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 Return to clinic here PRN for new lesion/concerns. Condyloma acuminata 1. Patient asks about a lesion on the penile shaft 2. Examination of this shows a condyloma acuminata 3. At the patients request this was treated with LN2 x2. CC: Mignon Stewart DO documented in this encounter Plan of Treatment Upcoming Encounters Date Type Specialty Care Team Description 07/26/2022 Office Visit Dermatology Joey Ibarra MD [address] DERMATOLOGY [place], [place] [address] (Wo rk) documented as of this encounter Procedures Procedure Name Priority Date/Time Associated Diagnosis Comme nts SURGICAL PATHOLOGY Routine 08/18/2020 12:00 PM Re suleiman for this REPORT EDT procedure are i n the results section. documented in this encounter Results Surgical Pathology Report (08/18/2020 12:00 PM EDT) Component Value Ref Test Analysis Performed At [facility] Range Method Time Signature Surgical [id number] ? Location: [facility] Pathology [place] Report The signing pathologist has (i) examined the relevant preparation(s) for the [facility] specimen(s) and (ii) rendered or confirmed the diagnosis(es) . [facility] . ?Surgic al Pathology DIAGNOSIS Left lower eyelid, skin shave biopsy: - Perivascular and lichenoid interface inflammation with dys keratoses (see discussion) Electronically signed by: ??Omari Griffiths MD Verified: ??08/28/2020 ?Dermatopathologist Performed at: ??-[facility] Dept. of Pathology, [place], [place] DISCUSSION Overall, the findings are no t entirely specific. They can be seen in a ? lichenoid keratosis, but that diagnos is should be considered only if there is an appropriate clinical setting. Whether the biopsy is repres entative of the entirety is best determined clinically. Importantly, ??if the lesion changes significantly or if clinical concern persists, another biopsy at that time may be of help. ADDITIONAL STUDIES This case was also reviewed by two additional intradepartmental dermatopathologist for consensus diagnosis. In terpretation of multiple ?step-leveled ??slide sections and stains for BerEp4 and Ck5 c onfirms the assessment above. The dermatology note and select medical history have been reviewed. SPECIMEN(S) SUBMITTED A - L lower eyelid, skin shave CLINICAL INFORMATION Pearly papule x6 months; BCCA SPECIMEN PROCESSING A - Labeled/Fixative: Patient demographics, formalin. Quantity/Size: ??Single, 0.2 x 0.2 x 0.1 cm. Tissue Description: Shave of a arias skin papule. Sections/Processing: Inked and submitted intact ??in 1 cassette labeled A1. ??black Specimen (Source) Anatomical Collection Method Collection Time Re ceived Time Location / / Volume Laterality 08/18/2020 12:00 PM EDT Joey Ibarra MD PATHOLOGY/CYTOLOGY ORDERABLE S Performing Organization Address City/State/[place] [address] documented in this encounter Visit Diagnoses Diagnosis History of basal cell carcinoma Personal history of other malignant neop lasm of skin Condyloma acuminatum documented in this encounter Care Teams Cannon Fire Direction Specialist Relationship Specialty Start Date End Date Mignon Stewart DO PCP - General Family Medicine 04/19/[address] [place] [address] documented as of this encounter
--- OUTSIDE RECORDS SUMMARY | 2022-06-07 02:32 | XMS_ITS | Encounter Summary ---
:1960 Author Organization [place] [address] Care Team Providers Name Role Phone Mignon Stewart DO Primary Care Provider Encounter Details Date Type Department Care Team Description 11/30/2019 Office Visit Otolaryngology at [facility] Sirisha Ga, Postoperative [facility] DIRECTOR [address] [place] [address] CENTER [phone] [place] [address] Social History Tobacco Use Types Packs/Day Years Used Date Current Every Day Smoker Smokeless Tobacco: Never Used Sex Assigned at Date Recorded Not on file documented as of this encounter Last Filed Vital Signs Vital Sign Reading Time Taken Comments Blood Pressure - - Pulse - - Temperature - - Respiratory Rate - - Oxygen Saturation - - Inhaled Oxygen Concentration - - Weight 77 kg (169 lb 11.2 oz) 11/30/2019 9:04 AM EST Height - - Body Mass Index 25.06 11/19/2019 2:58 PM EST documented in this encounter Progress Notes Sirisha Ga, DIRECTOR FAMILY - 11/30/2019 10:00 AM EST [facility] OTOLARYNGOLOGY HEAD AND NECK TUMOR CLINIC FOLLOW UP NOTE Sohan Damon is a 59 y.o. 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 Case Date: 11/19/2019 ?? Surgeon: Surgeon(s) and Role: * Deng Araujo MD - Primary * Johnathon White PA - Physician Data Network Architect * Rich Rolon MD - Resident ?? Preoperative diagnosis: Basal Cell Cancer ?? Postoperative diagnosis: Basal Cell Cancer ?? Procedure(s) (LRB): FTSG, FREE, W/ CLOSURE DONOR SITE, 20 SQ CM OR LESS, NECK (WRVU 10.41) (Left) ADJ.TISSUE TRANSFER, REARRANGEMENT, 10SQ.CM OR LESS, NOSE (WRVU 9.23) (Left) ? Findings: 2x2.5cm defect of the left nasal ala that was filled with a FTSG from the left clavicular region. Donor site closed primarily and bolster dressing placed on the nasal wound. ?? Anesthesia: General ?? Estimated Blood Loss: 10 mL New issues since surgery: Sohan is a 59 year old with a hx of basal cell carcinoma of the nose. He is here for a postoperative exam. He is doing well. No fevers. Eating and drinking fine. He denies any pain. Eating and drinking fine. He feels the sutures along the left clavicle are very tight. He hasbeen applying Aquaphor to the bolster and incision. PROBLEM LIST Patient Active Problem List Diagnosis Code ??? Cancer of skin of external nose C44.301 PAST MEDICAL HISTORY No past medical history on file. SOCIAL HISTORY Social History Tobacco Use ??? Smoking status: Current Some Day Smoker ??? Smokeless tobacco: Never Used Substance Use Topics ??? Alcohol use: Not on file MEDICATIONS Current Outpatient Medications on File Prior to Visit Medication Sig Dispense Refill ??? cephALEXin (KEFLEX) 500 mg Capsule Take 1 capsule by mouth 4 times daily. 40 capsule 0 ??? ADVAIR DISKUS 250-50 mcg/dose Disk with Device No current facility-administered medications on file prior to visit. ALLERGIES No Known Allergies ROS Pertinent positive findings discussed above. No other findings on review of constitutional visual, cardiovascular, respiratory, gastrointestinal, musculoskeletal, neurological, hematologic systems. PHYSICAL EXAMINATION General: Well developed, no distress Head/face/nose: There is a bolster along the left nasal tip. This was removed and the flap is well vascularized and pink. Oral cavity: Normal exam of the lips, teeth/gums, floor of mouth, tongue. Normal oral mucosa. Normal palate Oropharynx: Normal soft palate, tonsils, lateral pharyngeal wall, posterior pharynx.wnl Neck: Sutures were removed from the donor sight on the left clavicle area. Pt tolerated this well. Neuro: AxOx3; CN II-XII is grossly intact Psych: Normal mood and affect. Responds appropriately to questions. Pathology/ ? Surgical Pathology DIAGNOSIS A - Left nasal, 12 [...] Basal cell carcinoma, nodular type and ulcerated, ?margins negative - ??Follicular infundibular cyst and f ocal ??actinic keratosis Electronically signed by: ??Wilder JEAN, PhD, Jason Verified: ??11/18/2019 ?Dermatopathologist Performed at: ??-[facility] Dept. of Pathology, [place], [place] DISCUSSION B( 3 o'clock) - The cluster of bland epithelioid cells in the frozen section are not ??present in the permanent section. There is no evidence of malignancy. CLINICAL INFORMATION Specimen Submitted: A - Left [...] soft tissue. Sections/Processing: The specimen is totally submitted for frozen section in 1 cassettes as follows: ? A1: ??Remaining tissue from frozen section B - Labeled/Fixative: Left nasal lesion 3 o'clock, fresh. Quantity/Size: Single, 0.6 x 0.3 x 0.2 cm. Tissue Description: [place] wide skin and subcutaneous tissue. Sections/Processing: The specimen is totally submitted for frozen section in 1 cassettes as follows: ? B1: ??Remaining tissue from frozen section C - Labeled/Fixative: Left nasal lesion 6 o'clock, fresh. Quantity/Size: Single, 0.6 x 0.2 x 0.2 cm. Tissue Description: [place] white skin and subcutaneous tissue. . SPECIMEN PROCESSING Sections/Processing: The specimen is totally submitted for frozen section in 1 cassettes as follows: ? C1: ??Remaining tissue from frozen section D - Labeled/Fixative: Left nasal lesion 9 o'clock, fresh. Quantity/Size: Single, 0.7 x 0.3 x 0.2 cm. Tissue Description: [place] white skin and subcutaneous tissue. Sections/Processing: The specimen is totally submitted for frozen section in 1 cassettes as follows: ? D1: ??Remaining tissue from frozen section E - Labeled/Fixative: Excision of left nasal sill lesion suture at 12 o'clock, fresh. Quantity/Size: Single, 2.4 x 1.7 x 0.7 cm. Tissue Description: Pale pink skin with central polypoid-like, rubbery lesion ??extending to subcutaneous tissue, ??measuring 1.3 x 1 x 0.3 cm . Distace to: 12 o'clock: 0.5 cm, 3 o'clock: 0.2 cm, 6 o'clock: 0.7 cm, 9 o'clock: 0.2 cm Orientation : Suture at 12 o'clock. Ink designation: 12-3-6 o'clock: Inked black, 12-9-6 o'clock: Inked blue Sections/Processing: Entirely submitted in 9 cassettes as follows: ? E1-E2: ??12 o'clock tip radially sectioned and entirely submitted ? E3-E4: ??6 o'clock tip radially sectioned and entirely submitted ? E5-E9: ??Remaining specimen serially sectioned from 12 o'clock to 6 o'clock ?perpendicular to longitudinal axis and entirely submitted. ?? saurabh ? Frozen Section FROZEN SECTION DIAGNOSIS AFS1 - Left nasal lesion 12 o'clock for frozen section: Negative for malignancy. BFS1 - Left nasal lesion 3 o'clock for frozen section Negative for malignancy. Elbert epithelioid cell proliferation suggestive of ??incidental compound nevus. 11/10/19 08:57 / DAK CFS1 - Left nasal lesion 6 o'clock for frozen section: Negative for malignancy. DFS1 - Left nasal lesion 9 o'clock for frozen section: Negative for malignancy. 11/10/19 09:02 / DAK Electronically signed by: ??Ann-Marie Hernandez MD Verified: ??11/10/2019 ?Pathologist Performed at: ??-[facility] Dept. of Pathology, [place], [place] This intraoperative consultation should be interpreted as a preliminary diagnosis pending review of the entire specimen and special studies, if any. PROCEDURES n/a IMAGE REVIEW N/a ASSESSMENT/RECOMMENDATIONS Hx of basal cell carcinoma of nose s/p resection of defect performed on 11/19/2019 with Plan: Encouraged to use Aquaphor to the neck and nose. Monitor for any infection. Sunscreen as needed. F/u in 6 weeks to see for a recheck or sooner if needed Referrals: documented in this encounter Plan of Treatment Upcoming Encounters Date Type Specialty Care Team Description 07/26/2022 Office Visit Dermatology Joey Ibarra MD [address] [facility] DERMATOLOGY [place], [place] [address] (Wo rk) documented as of this encounter Visit Diagnoses Diagnosis Postoperative examination Follow-up examination, following unspeci fied surgery documented in this encounter Care Teams Manager Business Systems Relationship Specialty Start Date End Date Mignon Stewart DO PCP - General Family Medicine 04/19/19 [address] [place] [address] documented as of this encounter
--- OUTSIDE RECORDS SUMMARY | 2022-06-07 02:32 | XMS_ITS | Encounter Summary ---
:1960 [place] [address] Care Team Providers Name Role Phone Lukasvignesh Mignon Jessica PAGE Primary Care Provider Reason for Visit Auth/Cert [...] Expiration Date Visits Requ ested Visits Authorized [id number] 1 1 Encounter Details Date Type Department Care Team Description 11/19/2019 Anesthesia Event Main Operating Room Madhavi Fontenot MD [facility] [place] [address] [place] [address] [phone] Anesthesia Record Procedure Summary Procedure Name Responsible Anesthesia Start Anesthesia Stop Time Anesthesiologist Time FTSG, FREE, W/ Madhavi Galdamez MD 11/19/19 1648 11/19/19 183 9 CLOSURE DONOR SITE, 20 SQ CM OR LESS, NECK (WRVU 10.41) (Left Face) Events Date Time Event Comment 11/19/2019 1640 1648 AN Verify 1648 Start 1648 An Start Data 1655 An Induction 1657 An Intubation 1659 Anesthesia Ready 1710 Handoff Intra-procedure anesthesia care was transferred afte r review of the patient's history, current anesthetic/surgical status and plan, accord ing to the [facility] Provider Handoff Checklis t. 1711 Handoff Intra-procedure anesthesia care was transferred afte r review of the patient's history, current anesthetic/surgical status and plan, accord ing to the [facility] Provider Handoff Checklis t. 1727 Procedure Start 182 Procedure Stop 182 Extubation/LMA Out 182 an stop data 183 Recovery or ICU Handoff Patient care was transferred to the destination unit staff after review of the patient's medica l history, current anesthetic/surgi delmi status and plan, according to the Provider Handoff Checklist. 183 Stop Name Total Midazolam 2 mg IV Lidocaine 60 mg Propofol 200 mg Rocuronium 5 mg Ondansetron 8 mg Dexamethasone 4 mg ceFAZolin (ANCEF) 2g in dextrose 5% 100 mL 2 g Succinylcholine 100 mg Propofol INF 301.2 mg Dexmedetomidine 12 mcg HYDROmorphone 0.6 mg lactated ringers infusion 1,200 mL Agents Name O2 Air N2O Sevoflurane (et) Blood No blood administrations on file. Lines, Drains, and Airways Type Details Placement Removal Incision 11/10/19; nose 11/10/19 0000 by Nely Tellez RN Incision 11/19/19; 1728; shoulder; 11/19/19 1728 by cayla Jaimes RN Incision 11/19/19; 1735; nose; other 11/19/19 1735 by Beckie urbina, (see comments) Bebeto Goff RN PIV 11/19/19; 1511; median 11/19/19 1511 by Avni, 1 01/20/19 193 by cubital vein (antecubital YANET Chapman, Olivia Wilder RN fossa), right; [id number] catheter system; 20 gauge; tolerated well; 11/19/19; 1932 ETT Mask Ventilation: Easy (1); 11/19/19 1657 by 1827 by ETT Type: Cuffed, Oral, GISELLA; Hasmukh Castañeda CRNA Lehmann, Jordi S, CRNA ETT Size: 7.5 mm; Mac Blade: 4; Notes: Asleep, Pre-O2; Attempts: 1; Laryngoscopy Grade: 1; ETT Placement Verified By: Auscultation, Capnometry, Visual; Inserted by: MAKAYLA Castañeda documented in this encounter Social History Tobacco Use Types Packs/Day Years Used Date Current Some Day Smoker Smokeless Tobacco: Never Used Sex Assigned at Date Recorded Not on file documented as of this encounter OR Notes Anesthesia Postprocedure Evaluation - Madhavi Galdamez MD - 11/19/2019 7:05 PM EST Department of Anesthesiology Post-procedure Note Patient: Sohan Damon Procedure Summary Date: 11/19/19 Room / Location: [facility] Anesthesia Start: 1647 Anesthesia Stop: 1838 Procedures: FTSG, FREE, W/ CLOSURE DONOR SITE, 20 SQ CM OR LESS, NECK (WRVU 10.41) (Left Face) ADJ.TISSUE TRANSFER, REARRANGEMENT, 10SQ.CM OR LESS, NOSE (WRVU 9.23) (Left Face) Diagnosis: (BasalCell Cancer) Surgeon: Deng Araujo MD Responsible Provider: Madhavi Galdamez MD Anesthesia Type: general ASA Status: 2 All Anesthesia Providers: Anesthesiologist: Madhavi Galdamez MD RECEPTIONIST AIRLINE LOUNGE: Hasmukh Castañeda CRNA; Robin Valles CRNA Vitals Value Taken Time BP 135/94 11/19/2019 7:00 PM Temp 36.2 ??C (97.2 ??F) 11/19/2019 6:36 PM Pulse Resp 16 11/19/2019 6:45 PM SpO2 94 % 11/19/2019 7:04 PM Pain Level 0 11/19/2019 6:36 PM Vitals shown include unvalidated device data. Patient Location: PACU/[facility] Level of Consciousness: Awake and Alert Pain Management: Satisfactory Analgesia PONV: None Cardiovascular Status: At Baseline and Hemodynamically Stable Respiratory Status: At Baseline and Room Air Postoperative Fluid Status: Intravascular EUvolemia Possible Anesthetic Complications: NONE apparent at time of evaluation Final Primary Anesthesia Type: General (The anesthetic type performed was the same as planned.) Comments: MADHAVI GALDAMEZ MD Anesthesia Preprocedure Evaluation - Madhavi Galdamez MD - 11/19/2019 4:14 PM EST Pre-Anesthesia Evaluation for: Sohan Damon a 59 y.o. male. Procedure(s): FTSG, FREE, W/ CLOSURE DONOR SITE, 20 SQ CM OR LESS, NECK (WRVU 10.41) ADJ.TISSUE TRANSFER, REARRANGEMENT, 10SQ.CM OR LESS, NOSE (WRVU 9.23) Patient Active Problem List Diagnosis ??? Cancer of skin of external nose History reviewed. No pertinent past medical history. Past Surgical History: Procedure Laterality Date ??? PRO DRESSING CHANGE UNDER ANESTHESIA N/A 11/10/2019 DRESSING CHANGE (FOR OTHER THAN MADRID) UNDER ANES., HEAD (WRVU 0.86) performed by Deng Araujo MD at [facility] MA[facility] OR ??? PRO EXC SKIN MALIG 2.1-3CM FACE, FACIAL Left 11/10/2019 EXC MALIGNANT LESION, 2.1 TO 3.0CM, NOSE (WRVU 3.42) performed by Deng Araujo MD at [facility] MA[facility] OR Social History Tobacco Use ??? Smoking status: Current Some Day Smoker ??? Smokeless tobacco: Never Used Substance Use Topics ??? Alcohol use: Not on file Social History Substance and Sexual Activity Drug Use Not on file No Known Allergies Medications: MAR and/or home medications have been reviewed. Physical Exam: Most Recent Vitals: 11/19/19 1458 BP: 129/90 Pulse: 79 Resp: 16 Temp: 36.2 ??C (97.2 ??F) SpO2: 100% Body mass index is 24.51 kg/m??. Height: 175.3 cm (5' 9) Weight: 75.3 kg (166 lb 0.1 oz) Airway Assessment: Mallampati: I TM distance: >3 FB Neck ROM: full Proven Cardiovascular Assessment: Pulmonary Assessment: Dental Assessment: - normal exam Misc Assessment: IV access: Peripheral line Anesthesia Plan: ASA 2 general, with a(n) intravenous induction 59 yr old male for excision of BCC from nose. PMH: smoker and COPD on inhalers. Part one 10 days ago, here for reconstruction today. No changes in his health since that procedure. At breathing baselinetoday. No recent rescue inhaler, daily advair. NPO appropriate, NKDA. GETA, GISELLA, std monitors. Region - Other Informed Consent: Anesthetic plan and risks discussed with patient. Plan discussed with RECEPTIONIST AIRLINE LOUNGE. PAT Clinic Note documented in this encounter Plan of Treatment Upcoming Encounters Date Type Specialty Care Team Description 07/26/2022 Office Visit Dermatology Joey Ibarra MD [address] [facility] [place], [place] [address] (Wo rk) documented as of this encounter Visit Diagnoses Not on filedocumented in this encounter Administered Medications Inactive Administered Medications - up to 3 most recent administrations Medication Order MAR Action Action Date Dose Rate Site ceFAZolin (ANCEF) 2g in dextrose 5% Given 11/19/2019 5:00 PM EST 2 g 100 mL 2 g, Intravenous, EVERY 8 HOURS, First dose on Fri11/19/19 at 1700, Until Discontinued, Administer over 30 Minutes, Indication for (Active or Suspected): Prophylaxis dexamethasone (DECADRON) injection Given 11/19/2019 5:03 PM EST 4 mg PRN, Starting on Fri11/19/19 at 1703, Until Fri11/19/19 at 1850, Anesthesia Intra-op, Routine dexmedetomidine (PRECEDEX) injection Given 11/19/2019 6:02 PM EST 4 mcg PRN, Starting on Fri11/19/19 at 1738, Until Fri11/19/19 at 1850, Anesthesia Intra-op, Routine Given 11/19/2019 5:38 PM EST 8 mcg HYDROmorphone (DILAUDID) injection Given 11/19/2019 5:40 PM EST 0.6 mg PRN, Starting on Fri11/19/19 at 1740, Until Fri11/19/19 at 1850, Anesthesia Intra-op, Routine lactated ringers infusion New Bag 11/19/2019 5:11 PM EST 1,000 mL, at 100 mL/hr, Intravenous, CONTINUOUS, Starting on Fri11/19/19 at 1530, Until Fri11/19/19 at 1934, Day of Surgery (Day of Procedure) New Bag 11/19/2019 3:30 PM EST 1,000 mLs 100 mL/hr lidocaine (PF) (XYLOCAINE) 100 mg/5 mL (2 %) Given 9 4:54 PM EST 60 mg injection PRN, Starting on Fri11/19/19 at 1654, Until Fri11/19/19 at 1850, Anesthesia Intra-op, Routine midazolam (PF) (VERSED) multi-dose injec tion Given 11/19/2019 4:48 PM EST 2 mg PRN, Starting on Fri11/19/19 at 1648, Until Fri11/19/19 at 1850, Anesthesia Intra-op, Routine ondansetron (ZOFRAN) injection Given 11/19/2019 6:13 PM EST 4 mg PRN, Starting on Fri11/19/19 at 1712, Until Fri11/19/19 at 1850, Anesthesia Intra-op, Routine Given 11/19/2019 5:12 PM EST 4 mg propofol (DIPRIVAN) 10 mg/mL bolus injection Given 4:55 PM EST 200 mg (Anesthesia) PRN, Starting on Fri11/19/19 at 1655, Until Fri11/19/19 at 1850, Anesthesia Intra-op propofol (DIPRIVAN) infusion New Bag 11/19/2019 4:55 PM 50 mcg/kg/min 22.6 mL/hr CONTINUOUS PRN, Starting on EST Fri11/19/19 at 1655, Until Fri11/19/19 at 1850, Anesthesia Intra-op, Routine rocuronium (ZEMURON) multi-dose injectio n Given 11/19/2019 4:56 PM EST 5 mg PRN, Starting on Fri11/19/19 at 1656, Until Fri11/19/19 at 1850, Anesthesia Intra-op, Routine succinylcholine chloride (Quelicin) inje ction Given 11/19/2019 4:56 PM EST 100 mg PRN, Starting on Fri11/19/19 at 1656, Until Fri11/19/19 at 1850, Anesthesia Intra-op, Routine documented in this encounter Care Teams Waterproofing Machine Operator Relationship Specialty Start Date End Date Mignon Stewart DO PCP - General Family Medicine 04/19/19 [address] [place] [address] documented as of this encounter
--- OUTSIDE RECORDS SUMMARY | 2022-06-07 02:33 | XMS_ITS | Encounter Summary ---
:1960 Author Organization [facility] Address [address] [place] [address] Care Team Providers Name Role Phone Terry Mignonmarybel Weber DO Primary Care Provider [phone] Encounter Details Date Type Department Care Team Description 06/29/2021 Lab Requisition [facility] Deana Mendez for Pathology & M, DO screening for Laboratory Medicine - [address] neoplasm of [facility] [address] colon [address] [place] [phone] Social History Tobacco Use Types Packs/Day Years Used Date Never Assessed Sex Assigned at Date Recorded Not on file documented as of this encounter Plan of Treatment Not on filedocumented as of this encounter Procedures Procedure Name Priority Date/Time Associated Diagnosis Comme nts SURGICAL PATHOLOGY Today 06/29/2021 11:05 Encounter for Resu lts for this EDT screening for procedure are in malignant neoplasm the resul ts of colon section. documented in this encounter Results SURGICAL PATHOLOGY (06/29/2021 11:05 EDT) Note to Patient The following [facility] pathology results CENTER have been interpreted LABORATORY by your pathologist SERVICES and may be available to you before your health provider has had the opportunity to review them. Please allow time for your provider to receive these results and explore management options, if applicable. Final Diagnosis A. COLON, 80 CM, BIOPSY: [facility] MEDICAL - Tubular adenoma CENTER LABORATORY B. COLON, 30 CM, BIOPSY: SERVICES - Tubular adenoma C. COLON, 20 CM, BIOPSY: - Tubulovillous adenoma D. COLON, 20 CM, POLYP 2, BIOPSY: - Hyperplastic polyp Attestation By the signature [facility] MEDICAL Electronica lly below, the attending CENTER signed by Michael, physician certifies LABORATORY Ana Duffy MD on that they have 1) SERVICES 07/03/2021 a t 1317 personally conducted a gross and/or microscopic examination of the described specimen(s), and/or personally interpreted the results of laboratory testing of the described specimen(s), and 2) personally rendered or confirmed the above diagnosis. Clinical History Screening, family [facility] MEDICAL history of [facility] cancer LABORATORY SERVICES Gross Description A. [facility] MEDICAL Received in formalin trace d with proper patient identification (initials E, P) and colon polyp @ 80 cm is a arias nodular tissue, 0.2 x 0.1 x 0.1 cm. Entirely submitted in A1. CENTER LABORATORY B. SERVICES Received in formalin trace d with proper patient identification (initials E, P) and colon polyp @ 30 cm are two arias-red tissues, less than 0.1 cm in greatest dimension and 0.3 x 0.2 x 0.1 cm. Entirely submitted in B1. C. Received in formalin trace d with proper patient identification (initials E, P) and colon polyp @ 20 cm is a multilobulated polyp, 2.1 x 2.0 x 2.0 cm. There is a 0.6 cm base margin present. Serially sectioned and entirely submitted in C1-C5. D. Received in formalin trace d with proper patient identification (initials E, P) and colon polyp @ 20 cm # 2 are two arias irregular tissues averaging 0.4 x 0.2 x 0.1 cm. Entirely submitted in D1. ROSALINA POTTS(ASCP) 06/29/2021 16:27 Performing Lab [facility] SERVICES Scanned Images [facility] SERVICES Specimen Tissue - Entire colon (body structure) Tissue specimen (specimen) - Entire colo n (body structure) Tissue specimen (specimen) - Entire colo n (body structure) Tissue specimen (specimen) - Entire colo n (body structure) Performing Organization Address City/State/ZIP Code Phon e Number [facility] [address] [place] [address] SERVICES documented in this encounter Visit Diagnoses Diagnosis Encounter for screening for malignant ne oplasm of colon Special screening for malignant neoplasm s, colon documented in this encounter Care Teams Interior Wirer Relationship Specialty Start Date End Date Mignon Stewart DO PCP - General 03/28/[address] [place] [address] documented as of this encounter
--- OUTSIDE RECORDS SUMMARY | 2022-06-07 02:33 | XMS_ITS | Encounter Summary ---
:1960 Author Organization [facility] Address [address] [place] [address] Care Team Providers Name Role Phone Mignon Stewart DO Primary Care Provider [phone] Encounter Details Date Type Department Care Team Description 02/24/2020 Lab Requisition [facility] Deana Mendez for other Pathology & M, DO general examination Laboratory Medicine - [address] [facility] [address] [place] [phone] Social History Tobacco Use Types Packs/Day Years Used Date Never Assessed Sex Assigned at Date Recorded Not on file documented as of this encounter Discharge Disposition Disposition Code Departure Means Destination Home or Self [place] documented in this encounter Plan of Treatment Not on filedocumented as of this encounter Procedures Procedure Name Priority Date/Time Associated Comments Diagnosis MISCELLANEOUS TEST, Today 02/24/2020 10:45 Encounter for ot er [facility] proced[facility] e are in the results section. documented in this encounter Results MISCELLANEOUS TEST, IDA (02/24/2020 10:45 EDT) Miscellaneous Test, SEE NOTE [facility] Comment: LABORATORIES Test ? Result ?? Flag ??Unit ??RefValue HPV High/Low Risk DNA MERI ??Interpretation ? SEE NOTE ?Penis, paraffin-embedded tissue specimen for Hum an ?Papilloma ?Virus (HPV) DNA In Situ Hybridization (MERI) stud ies ?([id number]): ?HPV (family 6) DNA MERI is positive. ??This indic ates ?positivity for one or more of the following type s: 6 or 11. ?HPV (family 16) DNA MERI is negative for types 16 , 18, 31, ?33, and 51. ??Participated in the Interpretation ? Not Report ed ??Report electronically sig harjit by ?Vega Wilkinson M.D., Ph.D. [phone] ??Material Received ?SEE NOTE ?A. [id number]: Penis ?1 block ??Disclaimer ? SEE NOTE ?This test was developed and its performance ayla acteristics ?determined by [facility] in a manner consistent with CLIA ?requirements. This test has not been cleared or approved by ?the U.S. Food and Drug Administration. ??Case Number ?[id number] ?Test Performed by: ?[facility] ?[address] [place] [address] ?Global Chief Experience Officer: Kelvin Bertrand M.D. Ph.D.; CLIA # [id number] Specimen Blood - Venous blood (substance) Performing Organization Address City/State/[facility] Code Phon e Number [facility] [address] [place] [address] documented in this encounter Visit Diagnoses Diagnosis Encounter for other general examination documented in this encounter Care Teams Auto Service Mechanic Relationship Specialty Start Date End Date Mignon Stewart DO PCP - General 03/28/[address] [place] [address] documented as of this encounter
--- OUTSIDE RECORDS SUMMARY | 2022-06-07 02:33 | XMS_ITS | Encounter Summary ---
:1960 Author Organization [facility] Address [address] [place] [address] Care Team Providers Name Role Phone Mignon Stewart Primary Care Provider [phone] Encounter Details Date Type Department Care Team Description 09/10/2021 Lab Requisition [facility] Outr Resulting Lab, Pathology & Laboratory Provider [facility] [address] [place], [place] [address] Social History Tobacco Use Types Packs/Day Years Used Date Never Assessed Sex Assigned at Date Recorded Not on file documented as of this encounter Plan of Treatment Not on filedocumented as of this encounter Procedures Procedure Name Priority Date/Time Associated Diagnosis Comme nts COVID-19 TEST [facility] Today 09/10/2021 9:40 EDT LAB PCR COVID-19 TESTING Routine 09/10/2021 9:40 EDT Resu lts for this procedure are i n the results section. documented in this encounter Results COVID-19 TEST [facility] LAB PCR (09/10/2021 9:40 EDT) Specimen Swab - Entire nasopharynx (body structur e) Performing Organization Address City/State/ZIP Code Phon e Number [facility] [address] [place] [address] SERVICES COVID-19 TESTING (09/10/2021 9:40 EDT) COVID-19 rt-PCR Negative Negative [facility] Result Comment: CENTER LABORATORY This test has not been FDA c leared or approved. This test has been authorized by FDA under an EUA for use by authorized laboratories. This test has been authorized only for detection of nucleic acid fro SERVICES m 2019-nCoV, not for any oth er viruses or pathogens. This test is only authorized for the duration of the declaration that circumstances exist justifying the authorization of emergency use of in vitro d iagnostic tests for detectio n and/or diagnosis of 2019-nCoV under section 564(b)(1) of Act, 21 U.S.C ?? 360bbb-3(b) (1), unless the authorization is terminated or revoked sooner. Negative results do not prec lude 2019-nCoV infection and should not be used as the sole basis for treatment or other patient management decisions. Negative results must be combined with clinical observa tions, patient history, and epidemiological informatio n. Performed on the Splashupher Fusion instrument Performing Lab [place] Lab [facility] LABORATORY SERVICES Specimen Swab Performing Organization Address City/State/ZIP Code Phon e Number [facility] [address] [place] [address] SERVICES documented in this encounter Visit Diagnoses Not on filedocumented in this encounter Care Teams Accounting Methods Analyst Relationship Specialty Start Date End Date Mignon Stewart DO PCP - General 03/28/19 [address] [place], [place] [id number] documented as of this encounter
--- OUTSIDE RECORDS SUMMARY | 2022-06-07 02:33 | XMS_ITS | Encounter Summary ---
:1960 Author Organization [facility] Address [address] [place] [address] Care Team Providers Name Role Phone Mignon Stewart DO Primary Care Provider [phone] Encounter Details Date Type Department Care Team Description 01/24/2020 Lab Requisition [facility] Deana Mendez for other Pathology & M, DO general examination Laboratory Medicine - [address] [facility] [address] [place] [phone] Social History Tobacco Use Types Packs/Day Years Used Date Never Assessed Sex Assigned at Date Recorded Not on file documented as of this encounter Plan of Treatment Not on filedocumented as of this encounter Procedures Procedure Name Priority Date/Time Associated Diagnosis Comme nts SURGICAL PATHOLOGY Today 01/24/2020 13:08 Encounter for othe r Results for this EST general examination procedur e are in the results section. documented in this encounter Results SURGICAL PATHOLOGY (01/24/2020 13:08 EST) Final Diagnosis A. PENIS, ? PENILE CONDYLOMA? , BIOPSY: [facility] Electronically - Condyloma acuminatum. CENTER sign ed by Saniya, - Negative for high-grade dysplasia or sania malignanc y. LABORATORY MD Day on SERVICES 02/04/2020 at 133 3 Clinical History Penile condyloma. [facility] LABORATORY SERVICES Attestation There was significant [facility] Electr onically resident/fellow CENTER signed by Brian macias, involvement in the LABORATORY MD Day on diagnostic evaluation SERVICES 02/04/20 20 at 1333 of this case. By the signature below, the attending physician certifies that they have personally conducted a gross and/or microscopic examination of the described specimens and rendered or confirmed the above diagnosis. Gross Description A. Received in formalin labe lled with proper patient identification (initials E, P) and penile condyloma x 3 are 3 arias-pedersen papillary friable nodules (1.1 x 1.0 x 0.5 cm 1.6 x 0.8 x 0.7 cm and 2.2 x 1 [facility] .8 x 0.8 cm). The larger spe cimen is serially sectioned and entirely submitted in A1 through A3. The 2nd specimen is trisected and entirely submitted in A4. The 3rd specimen is serially sectioned and entirely submitted in A 5 and A6. CENTER LABORATORY MIAB ALI 01/25/2020 9:31 SERVICES Resident/Fellow: Johnathon Moreno MD [facility] LABORATORY SERVICES Scanned Images [facility] LABORATORY SERVICES Specimen Tissue - Skin (tissue) specimen (specime n) Performing Organization Address City/State/ZIP Code Phon e Number [facility] [address] [place] [address] SERVICES documented in this encounter Visit Diagnoses Diagnosis Encounter for other general examination documented in this encounter Care Teams Pavilion Cutter Relationship Specialty Start Date End Date Mignon Stewart DO PCP - General 03/28/[address] [place], [place] [phone] documented as of this encounter
--- OUTSIDE RECORDS SUMMARY | 2022-06-07 02:33 | XMS_ITS | Encounter Summary ---
:1960 Author Organization [facility] Address [address] [place] [address] Care Team Providers Name Role Phone Unknown, Provider Primary Care Provider Encounter Details Date Type Department Care Team Description 03/24/2019 Results Only [facility]- Meka Gaffney, DO [phone] [address] [place] [address] Social History Tobacco Use Types Packs/Day Years Used Date Never Assessed Sex Assigned at Date Recorded Not on file documented as of this encounter Plan of Treatment Not on filedocumented as of this encounter Procedures Procedure Name Priority Date/Time Associated Diagnosis Comme nts SURGICAL PATHOLOGY Routine 03/24/2019 15:36 Resul ts for this EDT procedure are i n the results section. documented in this encounter Results SURGICAL PATHOLOGY (03/24/2019 15:36 EDT) Pathology Report: SURGICAL PATHOLOGY REPORT [facility] Reports generated via electronic interface contain sandra ginal data; LABORATORY however they are lacking the format of the original re port. SERVICES Caution should be taken when reading/interpreting unfo rmatted reports. Name: ? SOHAN DAMON ? Accession #: ? [id number] ? : ? 1960 (Age: 58) ??M ? Collect Date: ? 03/24/2019 ? Location: ? [facility] ? Receive Date: ? 03/24/20 19 ? Provider: MEKA BERGER DO Copy to: JENNIE TOBIAS DO ? Final Pathologic Diagnosis: SKIN OF FACE, LEFT SIDE OF NOSE, NARES, SHAVE BIOPSY: - Basal cell carcinoma, nodular type, in volving the biopsy base and peripheral edge. Document reviewed and electronically signed by: AIDE KAY MD Report ??Date: 03/25/2019 12:57 By the signature above, the attending physician certif ies that he/she has personally conducted a gross and/or microscopic examin ation of the described specimens and rendered or confirmed the above diagnosi s. Specimen(s) Received: Biopsy skin lesion left side of nose, nares Clinical History: Skin lesion left side of nose; fax results to: Gross Description: ? Received in formalin labelled with proper patient identification (initials E, P) and biopsy, skin lesion, left side of nose, kalyan es is an aggregate of arias-white irregular skin fragments (0.7 x 0.6 x 0.2 cm ). The specimen is submitted intact in 1. ROSALINA Rodriguez (ASCP) 03/24/2019 3:57 PM End of Report Specimen Performing Organization Address City/State/ZIP Code Phon e Number [facility] [address] [place] [address] SERVICES documented in this encounter Visit Diagnoses Not on filedocumented in this encounter Care Teams Keno Attendant Relationship Specialty Start Date End Date Unknown, Provider, PCP - General 03/24/19 03/27/19 documented as of this encounter
--- OUTSIDE RECORDS SUMMARY | 2022-06-07 02:33 | XMS_ITS | Encounter Summary ---
:1960 Author Organization [facility] Address [address] [place] [address] Care Team Providers Name Role Phone Mignon Stewart DO Primary Care Provider [phone] Encounter Details Date Type Department Care Team Description 02/24/2020 Lab Requisition [facility] Deana Mendez for other Pathology & M, DO general examination Laboratory Medicine - [address] [facility] [address] [place] [phone] Social History Tobacco Use Types Packs/Day Years Used Date Never Assessed Sex Assigned at Date Recorded Not on file documented as of this encounter Plan of Treatment Not on filedocumented as of this encounter Procedures Procedure Name Priority Date/Time Associated Diagnosis Comme nts HISTORICAL CASE Today 02/24/2020 10:45 Encounter for other R esults for this UPDATE EDT general examination procedur e are in the results section. documented in this encounter Results HISTORICAL CASE UPDATE (02/24/2020 10:45 EDT) Addendum Comment At the request of Dr. Deana Mendez, a block from [id number] (A2) was sent to [facility] for testing. [facility] HPV High/Low Risk DNA MERI by [facility] SERVICES HPV (family 6) DNA MERI: Positive (positive for one or more of types 6 or 11) HPV (family 16) DNA MERI: Negative for types 16, 18, 31 , 33 and 51 For the report from [facility], please see scanned report in EPIC. Original (A2) [facility] SERVICES Original Case Penis [facility] Specimen Source LABORATORY SERVICES Original Case Date 01/24/2020 [facility] of Service LABORATORY SERVICES Specimen Tissue - Surgical Pathology Narrative This result has an attachment that is no t available. Performing Organization Address City/State/ZIP Code Phon e Number [facility] [address] [place] [address] SERVICES documented in this encounter Visit Diagnoses Diagnosis Encounter for other general examination documented in this encounter Care Teams Electric Screw Driver Operator Relationship Specialty Start Date End Date Mignon Stewart DO PCP - General 03/28/[address] [place] [address] documented as of this encounter
[2022-06-07 09:04] LABS: Anion Gap 8.9 mmol/L (3-11); BUN 18 mg/dL (7-18); CO2 29.1 mmol/L (21.0-32.0); CREATININE 0.8 mg/dL (0.70-1.30); Calculated LDL 177 mg/dL (<100); Chloride 99 mmol/L (98-107); Cholesterol 249 mg/dL (<200); Glucose 110 mg/dL (74-106); HDL Cholesterol 56 mg/dL (40-60); Potassium 4.1 mmol/L (3.5-5.1); Sodium 137 mmol/L (136-145); Triglyceride 83 mg/dL (<150)
== END 2022-06-07 02:23 | disposition home or self-care (01) ==
LOC: LBO 02:22
PROVIDERS: PCP Student in an Organized Health Care Education/Training Program; Visit Provider Student in an Organized Health Care Education/Training Program
DX: E86.0 Dehydration (principal); Z13.220 Encounter for screening for lipoid disorders
CPT/HCPCS: 36415; 80048; 80061

== ENCOUNTER → 2022-09-20 01:01 | Outpatient (CLI) | payer MEDICAID, SELFPAY ==
--- NOTE | 2022-09-20 08:30 | DI.CTLCSR_ITS ---
Exam(s) CT CHEST LUNG CANCER SCREEN EXAM: CT CHEST LUNG CANCER SCREEN CLINICAL HISTORY: Screening for lung cancer,smoker, f17.210. TECHNIQUE: Imaging Protocol: Low Dose Technique CONTRAST MATERIAL: None COMPARISON: CR CHEST 2 VIEWS PA,LAT from 10/22/2017 CR XR shoulder LT complete 2+V from 01/25/2019 FINDINGS: CHEST: LUNGS: There is a 3 millimeter noncalcified nodular density in lateral aspect of the left upper lobe. No other left lung findings. Benign-appearing increased markings are noted in the posterior basal segment of the right lower lobe. No right lung nodules.. No pleural effusions. No significant find ings in the trachea and mainstem bronchi. MEDIASTINUM: There is no obvious hilar nor mediastinal adenopathy. CARDIAC: Heart size is normal. There is no pericardial effusion.Caliber of the thoracic aorta is wit hin normal limits. OTHER: Lowermost images reveal a partially included abdominal aortic aneurysm which exhibits diameter of 4.2 cm in the field of view of this study. The aneurysm continues beyond the field of view of th is study in the abdomen. This requires further study of the abdominal aorta. OSSEOUS: No significant osseous lesions.. IMPRESSION: 1. Presently benign-appearing 3 millimeter left upper lobe nodule. No other significant focal lung f indings. No pleural effusions. No intrathoracic adenopathy. 2. There is a significant ABDOMINAL AORTIC ANEURYSM. Please note that only the upper aspect is in fi eld of view here and measures 4.2 cm. It may be larger lower down and therefore dedicated imaging of the abdominal aorta and iliac vessels is recommended. 3. Lung RADS Cat 2S - Benign Appearance / Behavior: Nodules with a very low likelihood of becoming a clinically active cancer due to size or lack of growth ABDOMINAL AORTIC ANEURYSM NOTED. Lung-RADS 1.0 CATEGORIES: Category 0 - Prior chest CT exam(s) being located for comparison. Category 1 - Annual screening in 12 months. No nodules or definitely benign nodules. Category 2 - Annual screening in 12 months. Benign appearance. Nodules with low likelihood of becomin g active cancer. Category 3 - 6-month follow-up. Probably benign. Short-term follow-up suggested. Nodules with low lik elihood of becoming active cancer. Category 4A - 3-month follow-up and CT/PET if >8 mm in size. Suspicious finding. Findings which requi re additional testing. Category 4B - Findings which require additional testing and tissue sampling. Category 4X - Category 3 or 4 nodules with additional features or imaging findings that increases the suspicion of malignancy. Modifier S- Potentially clinically significant findings (non lung cancer) RADIATION DOSE DELIVERED: 82.42mGy.cm Total DLP 1.84mGy CTDIvol DATA REPOSITORY: All CT scans at this facility are submitted to the National Radiology Data Registry (NRDR) Dose Index Registry (DIR) with the [employer] (ACR). RADIATION OPTIMIZATION: All CT scans at this facility use at least one of these dose optimization te chniques: automated exposure control; mA and/or kV adjustment per patient size (includes targeted exa ms where dose is matched to clinical indication); or iterative reconstruction.
== END ==
PROVIDERS: PCP Student in an Organized Health Care Education/Training Program; Visit Provider Student in an Organized Health Care Education/Training Program
DX: F17.210 Nicotine dependence, cigarettes, uncomplicated (principal); Z12.2 Encounter for screening for malignant neoplasm of respiratory organs; R91.1 Solitary pulmonary nodule
CPT/HCPCS: 71271

== ENCOUNTER → 2022-11-01 01:25 | Outpatient (CLI) | payer MEDICAID, SELFPAY ==
--- NOTE | 2022-11-01 07:45 | DI.CT_ITS ---
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 TECHNIQUE: Imaging Protocol: Axial CT angiography was performed with multi-slice acquisition and mu lti-planar and/or 3D reconstructions. CONTRAST MATERIAL: Intravenous: Omnipaque 350 Contrast volume:100 ml COMPARISON: CR CHEST 2 VIEWS PA,LAT from 10/22/2017 CR XR shoulder LT complete 2+V from 01/25/2019 US US OR ANESTHESIA from 01/24/2020 FINDINGS: CHEST: Pulmonary Arteries: No evidence of filling defect to suggest pulmonary emboli. Tracheobronchial tree: Patent where visualized. Mediastinum and Hilda: No dominant adenopathy or fluid collection. Pulmonary parenchyma: No consolidation or dominant measurable mass. Mild emphysematous changes at upp er lobes. Pleura: No effusion or pneumothorax. Heart: The heart is not dilated. Mild coronary artery calcifications are seen. Aorta: Ascending aorta 3.7 cm. Descending aorta 2.8 cm with some mural thickening and irregularity. Bones: Degenerative changes. Upper to mid thoracic scoliosis. ABDOMEN: Liver: Fatty infiltration.. No measurable mass. Portal, Superior Mesenteric, and Splenic Veins: Unremarkable. Gallbladder and Biliary Tract: No radiodense calculus or dilation. Pancreas: Normal density, no abnormal calcifications or inflammatory process. Spleen: Normal. Adrenals: No masses seen. Kidneys: Normal size, contour and axis. No radiodense stones or obstructive uropathy. No masses seen. Abdominal Aorta: 4.1 x 4.5 centimeter infrarenal fusiform abdominal aortic aneurysm with significant mural thrombus anteriorly. No evidence of dissection. Branch vessels are patent. Iliac arteries dieudonne w mural calcification but no aneurysm or significant stenosis. Internal and external iliac arteries and femoral arteries normal in diameter and without significant luminal narrowing or aneurysm.. Bowel: No obstruction or bowel wall thickening. Appendix is unremarkable. Mild sigmoid diverticulosis . Peritoneal Cavity: No ascites, collection or mesenteric inflammatory response. Lymph Nodes: Within normal limits. Bones: Mild degenerative changes, greatest at L5-S1. Soft Tissues: Unremarkable. PELVIS: Bladder: Symmetric distention, no gross wall thickening. Reproductive Organs: Minimally enlarged prostate. Lymph Nodes: Within normal limits. Bones: Within normal limits. IMPRESSION: 1. 4.1 by 4.5 centimeter infrarenal aortic aneurysm with significant mural thrombus. RADIATION DOSE DELIVERED: 1,230.17mGy.cm Total DLP DATA REPOSITORY: All CT scans at this facility are submitted to the National Radiology Data Registry (NRDR) Dose Index Registry (DIR) with the [employer] (ACR). RADIATION OPTIMIZATION: All CT scans at this facility use at least one of these dose optimization te chniques: automated exposure control; mA and/or kV adjustment per patient size (includes targeted exa ms where dose is matched to clinical indication); or iterative reconstruction.
[2022-11-01 15:04] LABS: CREATININE 0.9 mg/dL (0.70-1.30); Estimated GFR 97.17 (mL/min/1.73m2)
[2022-11-01] MEDS: Omnipaque 350 MG/ML 100 ML BTL IJ (16:02)
== END ==
PROVIDERS: PCP Student in an Organized Health Care Education/Training Program; Visit Provider Student in an Organized Health Care Education/Training Program
DX: N28.9 Disorder of kidney and ureter, unspecified (principal); I71.40 Abdominal aortic aneurysm, without rupture, unspecified; I72.3 Aneurysm of iliac artery
CPT/HCPCS: 71275; 74174; 82565; J3490

== ENCOUNTER 2023-02-25 07:20 | Day surgery (SDC) | payer MEDICAID, SELFPAY ==
--- NOTE | 2023-02-24 19:56 | W.PM.HP.N ---
Date of service: 02/25/23 Time of Service: 08:30 Assessment and Plan Assessment and plan (1) GERD (gastroesophageal reflux disease): Status: Chronic (2) Tubulovillous adenoma: Status: Acute Assessment and plan: Plan: Colonoscopy & EGD w/ general & natural airway. The?patient will be scheduled by my office. The pt understands that they need to do a bowel prep and the importance of hydration during this.? The patient understands there is a theoretical risk of renal failure.? For healthy patients we use Gatorade/Miralax Prep.? ?For anyone with renal concerns- GoLytely will be used. Plavix and coumadin will need to be held except in unusual circumstances. ? Patients in A. Fib do not need to be bridged with Lovenox or on CVA prophylaxis.? A baby ASA can be continued but full dose ASA needs to be stopped for 10 days prior to the procedure. A complete H & P is required within 30 days of the procedure.? GETA w/natural airway is used for the colonoscopy.? Informed consent is obtained for the procedural (explained in simple layman's terms that?the pt and/or family could understand) explaining risks vs benefits and alternatives to the procedure and consequences if we do not do the procedure and need/rational for the procedure. Risks include but are not limited to: bleeding, infection, perforation of colon.? This would necessitate emergency surgery to repair the damage w/ possible ostomy; and other associated complications w/ the required surgery. ? Also complications of anesthesia including aspiration, VA/CVA/, inability to complete the procedure. I discussed with the?patient would they could expect during the procedure, post procedure and recovery time and risks.? The patient understands that they need to have a ride home after the procedure.? The patient was given all this information in writing and expressed understanding. If there are any questions or concerns please feel free to contact our office.? Generally Colonoscopy does not require antibiotics prophylaxis, (3) Hypertension: Status: Chronic (4) Continuous cannabis use: Status: Acute (5) Alcohol abuse, daily use: Status: Acute (6) Borderline systolic HTN: Status: Acute (7) Lung nodule seen on imaging study: Status: Acute (8) AAA (abdominal aortic aneurysm) without rupture: Status: Acute Assessment and plan: Incidentally found on CT screening scan for lung cancer 4 x 4.5 cm with mural thrombus Clinically asymptomatic He has seen vascular at [facility] and repeat ultrasound in March 2023 (9) COPD (chronic obstructive pulmonary disease): Status: Chronic Qualifiers: COPD type: unspecified COPD Qualified Code(s): J44.9 - Chronic obstructive pulmonary disease, unspecified (10) Asymmetrical sensorineural hearing loss: Status: Acute (11) COPD (chronic obstructive pulmonary disease): (12) SOB (shortness of breath) on exertion: Status: Acute (13) Basal cell carcinoma of left side of nose: Status: Acute History of Present Illness Consults Consult date: 02/25/23 Narrative: today's visit 02/25/830; Patient is here today for colonoscopy for a tubulovillous polyp at 20 cm and an EGD for uncontrolled GERD.??? They completed a bowel prep with just a clear yellow residual effluent.? They not having any chest pain or shortness of breath, currently.? They are not experiencing any fever or chills.? They deny any productive cough or upper respiratory tract infection signs or symptoms.? They are not having abdominal pain, or nausea and vomiting.? They have not had any changes in medications, past medical history or past surgical history since previously being seen in the office. They have not had any accidents or have been in the ER since the clinic pre-operative evaluation. ??I reviewed the procedure with the patient today, including risks and benefits of the procedure, and what they could expect at home for recovery.? All questions are answered to the patient?s satisfaction today, and they are stable to proceed with the proposed procedure. pt is cut down to 1/2 ppd smoking. Clinic visiti 01/06/23 Pt denies problems with constipation or diarrhea.? They deny any pain or difficulty with bowel movements, or rectal bleeding.? There is? family history of any colon cancer- father. .? Pt has not had any unexplained weight loss.? Their appetite is good.? ?They deny heart,? or kidney problems. They have not had any prior colo-rectal surgery.? The patient? has not had a prior porstate.? They deny any problems with anesthesia in the past. Pt notes he has been belching more than usual. ? Less than once a week will have wet burps.? Denies pain or difficulty swallowing.? No blood in stools.? No wt loss.? Occ? he will get H/I.? He dpesn't take anything for this NSAIDS- never asa- no coffee- 1/day alcohol- 3-4/day soda- never tea- none smoker: 1 ppd.? Anesthesia: general (without airway) Previous surgical intolerances: No Previous surgical complications: No Pulmonary risk factors: Date of surgery: Planned procedure: Yes Sleep apnea risks: No COPD/Asthma/Smoker:? Pt is still smoking. ? 1ppd. ? Daily ETOH Can climb one flight of stairs (12-13 steps) in less than 30 seconds without stopping and without symptoms: Yes The surgery proposed for this patient is: low risk Active cardiac conditions: none Active risk factors: none ASA (acetylsalicylic acid): not used Beta blockers: not used Kidneys: no concerns DM:no CE 06/20 The scope was then introduced and retrofelexed.? NO internal hemorrhoids were identified. The scope was then? advanced to the cecum w/out difficulty.? The TI and appendiceal orifice were identified.? The prep was adequate-he has a large amount residual stool that is adherent to the wall.? This extensively lavaged, But there still is large quantity, and polyps less than 5 mm may be missed.? He has a small, less than 5 mm flat polyp at 80 cm.? This is removed with a cold biting forcep.? He has a 0.75 cm flat polyp at 30 cm.? This is removed with a cold biting forcep.? He has x2 additional 5 mm, flat polyps at 20 cm that are both removed with a cold biting forcep.? He has a large 2 cm polyp at 20 cm.? This is tattooed with Shanae ink.? It is removed with a hot polypectomy snare.? The specimen is retrieved.? There is no bleeding noted.? The clip is placed over the stalk.? He has multiple diverticula that carry over from the sigmoid colon all the way over to the right colon.? There is no signs of active bleeding or infection..? The scope was then slowly retracted over 20 minutes back into the rectum.? The scope was removed and the patient was woken up and taken back to Same day surgery in stable condition. ? Review of Systems All systems reviewed & are unremarkable except as noted in HPI and below PFSH All Active Problems Hypertension (Chronic) Continued elevated BP Continuous cannabis use (Acute) Alcohol abuse, daily use (Acute) GERD (gastroesophageal reflux disease) (Chronic) Borderline systolic HTN (Acute) Lung nodule seen on imaging study (Acute) Presently benign-appearing 3 millimeter left upper lobe nodule. Lung RADS Cat 2S - Benign Appearance / Behavior: Nodules with a very low likelihood of becoming a clinically active cancer due to size or lack of growth - ANNUAL SCREENING. AAA (abdominal aortic aneurysm) without rupture (Acute) US: 4.5cm. [facility] vascular 12/23. Repeat US in 6m & stop smoking COPD (chronic obstructive pulmonary disease) (Chronic 12/2017) Dx during acute exacerbation with bronchitis, possible unDx pneumonia. Daily Serevent has made a big difference, along with reducing tobacco use. Tobacco dependence (Chronic 12/23/13) Tolerating patch, but did fall off and re-start smoking. Partially 2' stress, work- partner smoked. Will re-start quitting process, 01/28/19. Tried nicotine patch x2-3 weeks, tolerated, but re-started smoking. Will set a new quit date. Planning stages, 03/2018 ik Oral lesion (Acute) Impairment of speech discrimination (Acute) Asymmetrical sensorineural hearing loss (Acute) Tubulovillous adenoma (Acute ~07/2021) Colon polyp, hyperplastic (Acute ~07/2021) Tubular adenoma (Acute ~07/2021) Fatigue (Acute 12/2018) Associated with increased work and cold weather, but with low meat diet and Hx smoking, need to r/o anemia. Colonoscopy [ ] Family Hx VA. SOB (shortness of breath) on exertion (Acute 12/2018) overall improved breathing, but continued SOB with exertion despite the cold weather needs monitoring.. Resting when outside; using inhaler before going/working outside which hekps. 01/28/19, ik Basal cell carcinoma of left side of nose (Acute 03/24/19) bx done 03/24/[address] Mendez Testicle trouble (Acute) Colon cancer screening (Chronic) Polyps, 2020 [ ] 1 yr recall Condyloma acuminatum of penis (Acute) Umbilical hernia (Acute) Actinic keratosis due to exposure to sunlight (Acute) Medical History COPD (chronic obstructive pulmonary disease) Left inguinal hernia Surgical History History of basal cell carcinoma excision left nose History of colonoscopy (~07/2021) History of left inguinal hernia repair (~01/25/20) Family History Father Colon cancer Mother Lymphoma Social History Smoking/Tobacco Use Status: Current every day Tobacco Type: cigarettes Smoking risk assessment performed?: Yes Alcohol Intake: current Alcohol Intake frequency: 3 or more drinks per day Alcohol type: hard liquor Drug use: Socially Substance use type: former substance user Date of last use: 07/20/2017 and marijuana Details: HS 02/25/23: last had a drink 02/23/23 Household members: significant other Housing: house Number of Children: 0 Communication Needs: None 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 Current gender identity: male What is your relationship status?: living with partner Panel score (0-1 are the most socially isolated patients): 1 What type of physical activity do you participate in: regular exercise Seatbelt use: always Drive intox or ride w/intox 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 Working smoke detector in home: Yes Fire extinguisher in home: Yes Carbon monox detector in home: Yes Do you feel safe at home: Yes (unable to assess privately) Do you feel safe in your relationship?: Yes Meds Allergies and Home Medications Allergies Allergy/AdvReac Type Severity Reaction Status Date / Time fluoroquinolone antiBx AdvReac Severe bleeding/di Uncoded 02/25/23 07:59 ssection Home Medications Medication Instructions Recorded Confirmed Type inhalational spacing device (Space ##1 10/24/17 02/24/23 History Chamber Plus) albuterol sulfate 90 mcg/actuation 2 puff inhalation Q4H PRN ##1 08/31/21 02/25/23 Rx aerosol inhaler (ProAir HFA) fluticasone 250 mcg-salmeterol 50 1 inh inhalation .QD #60 ea 10/05/22 02/25/23 Rx mcg/dose blistr powdr for inhalation (Advair Diskus) bisacodyl 5 mg tablet,delayed 5 mg PO ONCE colonscopy bowel prep 01/06/23 02/25/23 Rx release (Dulcolax (bisacodyl)) #4 tabs polyethylene glycol 3350 17 238 g PO ONCE colonoscopy prep 01/06/23 02/25/23 Rx gram/dose oral powder #238 grams prochlorperazine maleate 5 mg 5 mg PO Q6H PRN PRN nausea and 01/06/23 02/25/23 Rx tablet (Compazine) vomiting #6 tabs clonidine HCl 0.1 mg tablet 0.1 mg PO BID #60 tabs 01/24/23 02/25/23 Rx lisinopril 20 mg tablet 20 mg PO DAILY #30 tabs 01/24/23 02/25/23 Rx naproxen sodium 220 mg tablet 220 mg PO BID PRN 01/24/23 02/25/23 History (Luis) Exam Narrative Exam Narrative: PHYSICAL EXAM GENERAL APPEARANCE: Alert, healthy appearance, oriented, x 3,? in no acute distress HEAD, EYES, EARS, NECK, THROAT: Head is normocephalic, pupils equal, round, reactive to light and accommodation, ocular movement intact, sclera clear and no jaundice. ? Patient had a mask on throughout the entirety of the visit. NECK: Trachea midline.? Neck supple.? No JVD LUNGS: normal respiration/normal chest excursion. ?Clear to auscultation bilaterally. ?No wheeze. ?HEART: Regular rate and rhythm. no murmurs ABDOMEN: soft and non-tender to palpation.? Normal bowel sounds.? Time Spent Time spent with Patient: <40 minutes Time was spent: preparing to see the patient(eg.review tests), obtaining and/or reviewing separately otained hiistory, ordering medications,tests, procedures, referring, communicating with other health before and after school daycare worker, indepentently interpreting results, counseling the patient and care coordination
[2023-02-25 07:45] VITALS: BP 115/86; PULSE 81; RESP 16; TEMP 36.6; O2SAT 96
--- NOTE | 2023-02-25 08:01 | ANES.PREOP_ITS ---
General Info Date of Service Date Performed: 02/25/23 Height: 5 ft 9 in Weight: 75.9 kg Body Mass Index (BMI): 24.7 Surgical Procedure: Operation Date: 02/25/23 08:50 Proposed Procedure Side Surgeon p Colonoscopy/Gastroscopy, possible Polypectomy Deana Mendez, DO Meds Allergies and Home Medications Allergies Allergy/AdvReac Type Severity Reaction Status Date / Time fluoroquinolone antiBx AdvReac Severe bleeding/di Uncoded 02/25/23 07:59 ssection Home Medication Medication Instructions Recorded inhalational spacing device (Space ##1 10/24/17 Chamber Plus) albuterol sulfate 90 mcg/actuation 2 puff inhalation Q4H PRN ##1 08/31/21 aerosol inhaler (ProAir HFA) fluticasone 250 mcg-salmeterol 50 1 inh inhalation .QD #60 ea 10/05/22 mcg/dose blistr powdr for inhalation (Advair Diskus) bisacodyl 5 mg tablet,delayed 5 mg PO ONCE colonscopy bowel prep 01/06/23 release (Dulcolax (bisacodyl)) #4 tabs polyethylene glycol 3350 17 238 g PO ONCE colonoscopy prep 01/06/23 gram/dose oral powder #238 grams prochlorperazine maleate 5 mg 5 mg PO Q6H PRN PRN nausea and 01/06/23 tablet (Compazine) vomiting #6 tabs clonidine HCl 0.1 mg tablet 0.1 mg PO BID #60 tabs 01/24/23 lisinopril 20 mg tablet 20 mg PO DAILY #30 tabs 01/24/23 naproxen sodium 220 mg tablet 220 mg PO BID PRN 01/24/23 (Aleve) Current Visit Medications: Current Medications Generic Name Dose Route Start Last Admin Trade Name Freq PRN Reason Stop Dose Admin Hyoscyamine Sulfate 0.125 mg 02/25/23 08:30 Hyoscyamine 0.125 Mg Sl/Oral/Chew SL DIRECTED PRN Ringer's Solution 1,000 mls @ 80 mls/hr 02/25/23 06:00 IV 03/26/23 23:59 INFUSION FLOYD IV Miscellaneous Supplies 1 each 02/25/23 06:00 Iv Access IV 03/26/23 23:59 DIRECTED [facility] Ondansetron HCl 4 mg 02/25/23 08:30 Ondansetron 4 Mg/2 Ml Vial IVP Q4H PRN PRN Nausea / Vomiting Sodium Chloride 0 ml 02/25/23 06:00 Normal Saline Flush 10 Ml Syr IV 03/26/23 23:59 PRN PRN Sodium Chloride 0 ml 02/25/23 06:00 Normal Saline 10 Ml Vial IJ 03/26/23 23:59 DIRECTED PRN Sterile Water 0 ml 02/25/23 06:00 Water,Injection,Sterile 10 Ml Vial IJ 03/26/23 23:59 DIRECTED PRN PFSH Active Problems Active Problems: Problem Status Onset Code Hypertension I10 Continuous cannabis use F12.90 Alcohol abuse, daily use F10.10 GERD (gastroesophageal reflux disease) K21.9 Borderline systolic HTN R03.0 Lung nodule seen on imaging study R91.1 AAA (abdominal aortic aneurysm) without rupture I71.40 COPD (chronic obstructive pulmonary disease) 12/2017 J44.9 Tobacco dependence 12/23/13 F17.200 Oral lesion K13.70 Impairment of speech discrimination H93.299 Asymmetrical sensorineural hearing loss H90.3 Tubulovillous adenoma ~07/2021 D36.9 Colon polyp, hyperplastic ~07/2021 K63.5 Tubular adenoma ~07/2021 D36.9 Fatigue 12/2018 R53.83 Atypical chest pain 12/2018 R07.89 Strain of left pectoralis muscle 12/2018 S29.011A SOB (shortness of breath) on exertion 12/2018 R06.02 Basal cell carcinoma of left side of nose 03/24/19 C44.311 Testicle trouble N50.9 Colon cancer screening Z12.11 Condyloma acuminatum of penis A63.0 Umbilical hernia K42.9 Actinic keratosis due to exposure to sunlight L57.0, X32.XXXA Medical History Medical History COPD (chronic obstructive pulmonary disease) Left inguinal hernia Medical History Comments:: 02/25/23:1 cigarette Surgical History Surgical History History of basal cell carcinoma excision left nose History of colonoscopy (~07/2021) History of left inguinal hernia repair (~02/25/20) Tobacco Smoking/Tobacco Use Status: Current every day Tobacco Type: cigarettes Smoking cigarettes per day: 10 Alcohol Alcohol Intake: current Alcohol intake frequency: 3 or more drinks per day Alcohol type: hard liquor Substance Use Substance use: Socially Substance use type: former substance user Date of last use: 07/20/2017 and marijuana Details: HS 02/25/23: last had a drink 02/23/23 Vital Signs and Lab Results Vital Signs Most Recent Vital Signs in EMR: Most Recent Vital Signs Temp Pulse Resp BP Pulse Ox 36.6 C 81 16 115/86 96 02/25/23 07:45 02/25/23 07:45 02/25/23 07:45 02/25/23 07:45 02/25/23 07:45 Lab Results Blood Type / Crossmatch: No Data to Display Complete Blood Count: No Data to Display Complete Metabolic Panel: No Data to Display Liver Function Panel: No Data to Display Coagulation Panel: No Data to Display Cardiac Panel: No Data to Display Arterial Blood Gas: No Data to Display Venous Blood Gas: No Data to Display Pancreas Panel: No Data to Display Thyroid Panel: No Data to Display Infectious Disease: No Data to Display Blood Cultures: No Data to Display Toxicology Panel: No Data to Display Anesthesia Assessment and Plan Anesthesia History Personal History: No History of Anesthesia Complications Family History: No Family History of Anesthesia Complications Exercise Tolerance Exercise Tolerance: Metabolic Equivalents>4 Pertinent Negatives Pertinent Negatives: No Symptoms of GERD Cardiac & Pulmonary Exam Cardiac Exam: Normal S1/S2 Heart Sounds Pulmonary Exam: Clear Bilateral Breath Sounds Implantable Cardiac Device Does patient have a Pacemaker or an ICD?: No Airway Exam Known Difficult Airway: No Mallampati Class: 1 Mouth Opening: Normal (> 3cm) Thyromental Distance: Greater than 3 cm Neck Range of Motion: Full ROM Neck Circumference: Normal Teeth Condition: Normal Dentition ASA Classification ASA Score: ASA 3 Emergency Case?: No NPO Status NPO Status: NPO Clears >2 hours, Solids >8 hours Anesthesia Plan Resuscitation Status: Full Code Anesthesia Technique: General Anesthesia Airway Planned: Natural Airway Monitors Used: Standard Monitors Preoperative Comments:: From previous anesthetic: COPD, 1PPD smoker, daily inhaler use. Advair this morning, reports lungs feeling good. Discussed BP at length and patients current control being great. Patient working on decreasing smoking and drinking.
[2023-02-25 08:03] VITALS: BMI 24.7
[2023-02-25] MEDS: Lactated Ringers 1,000 ML 80 ML IV (08:14)
--- NOTE | 2023-02-25 08:52 | STOM_PTH ---
PATIENT: Sohan Damon LOC: [facility] U#:[id number] AGE/SX: 62/M ROOM: RE02/25/[address]: Deana Mendez : 1960 BED: DIS: 02/25/2023 SPEC #: [id number] RECD: 02/25/23 12:51 STATUS: RACHEL REShemar #: [id number] LAURI: 02/25/23 08:[address]: Deana Mendez DEPT: Surgical Specimen RECD BY: Teresa Rodriguez ENTERED: 02/25/23 12:54 SP TYPE: STOMACH OTHR DR: Mignon Stewart DO Tissues: 1 - BIOPSY BOWEL 2 - STOMACH BIOPSY 3 - ESOPHAGUS BIOPSY 4 - ESOPHAGUS BIOPSY 5 - ESOPHAGUS BIOPSY 6 - BIOPSY BOWEL 7 - BIOPSY BOWEL Procedures: GROSS AND MICRO LEVEL 4 Comments: [id number]
[2023-02-25 09:20] VITALS: BP 101/82; PULSE 77; RESP 16; TEMP 36.3; O2SAT 96
--- NOTE | 2023-02-25 09:37 | PDOC.DSDIS_ITS ---
Date of service: 02/25/23 Time of Service: 09:37 Discharge Plan Disposition Patient Disposition: Home Condition: Good Discharge Details Reason For Visit: egd and colon scope Attending Provider: Deana Mendez Primary Care Provider: Mignon Stewart Home Meds and New Rx's Prescriptions: Continued albuterol sulfate [ProAir HFA] 90 mcg/actuation HFA aerosol inhaler 2 puff Inhalation Q4H PRN Qty: 1 3RF Rx Instructions: Use daily thru fall/winter; increase to q4H when needed or directed naproxen sodium [Aleve] 220 mg tablet 220 mg PO BID PRN lisinopril 20 mg tablet 20 mg PO DAILY Qty: 30 1RF clonidine HCl 0.1 mg tablet 0.1 mg PO BID Qty: 60 1RF prochlorperazine maleate [Compazine] 5 mg tablet 5 mg PO Q6H PRN PRN (Reason: nausea and vomiting) Qty: 6 0RF fluticasone propion-salmeterol [Advair Diskus] 250-50 mcg/dose blister with device 1 inh IH .QD Qty: 60 2RF (DME) Space Chamber Plus 1 EACH spacer Miscellaneous Qty: 1 Discontinued polyethylene glycol 3350 17 gram/dose powder 238 g PO ONCE Qty: 238 0RF Rx Instructions: take per colonoscopy instructions bisacodyl [Dulcolax (bisacodyl)] 5 mg tablet,delayed release (DR/EC) 5 mg PO ONCE Qty: 4 0RF Rx Instructions: take per colonoscopy instructions Discharge Instructions Additional Instructions: DSU Colonoscopy Post- Op Instructions Instructions for Everyone who is given Anesthesia: For your safety, please do the following for the next twenty-four (24) hours: *Do Not operate a motor vehicle (car, truck, motorcycle, etc.) *Do Not drink alcoholic beverages or use any recreational drugs for the first 24 hours or while taking pain medications. The medications in your body may have a reaction that can be dangerous. *Do Not make any important decisions or sign any important papers. Findings: upper scope: nodule in upper esophagus otherwise normal colon: diverticula small polyp Follow up: Will send a letter in 2-3 weeks time with polyp results and when we want repeat the C scope- probably 3 years time. 1. No lifting over 20 pounds or strenuous activity for the first 24 hours after your procedure. After 24 hours there are no restrictions on your activity but y ou may feel fatigued for a few days. 2. After you arrive home you may have a light meal and return to your normal diet as you can tolerate it without feeling sick to your stomach. 3. You may have a bloated, gaseous feeling in your belly (abdomen) after a colonoscopy. Passing gas and belching will help. Walking or lying down on your left side with your knees flexed may relieve the discomfort. Call the office at [phone] (Office) or [phone] (Hospital) right away if you notice any of the following: a.Vomiting of blood or ?coffee ground stools?. b.Rectal bleeding 1Tbsp, blood clots or continuous bleeding. c.Severe belly (abdominal) pain. d.A hard distended belly (abdomen) and an inability to pass gas. 4. Please don?t expect to have a normal BM (bowel movement) for 2-3 days after your procedure. 5. If there are questions regarding the findings of your procedure, please contact your doctor 6. If you are unable to contact your doctor with a problem, contact the hospital at [phone]. 7. Continue all your regular medications unless directed otherwise. I understand the above instructions and have no questions. Signature of Patient or Adult Escort Name of Responsible Adult Escort Signature of Nurse Date/Time Activity:: see above Diet:: see above Discharge Orders Discharge Orders: Discharge Order (Routine); Ordered 02/25/23 Ordered By: Deana Mnedez DS: Diagnosis Discharge Diagnosis (1) GERD (gastroesophageal reflux disease): Status: Chronic (2) Tubulovillous adenoma: Status: Acute (3) Hypertension: Status: Chronic (4) Continuous cannabis use: Status: Acute (5) Alcohol abuse, daily use: Status: Acute (6) Borderline systolic HTN: Status: Acute (7) Lung nodule seen on imaging study: Status: Acute (8) AAA (abdominal aortic aneurysm) without rupture: Status: Acute (9) COPD (chronic obstructive pulmonary disease): Status: Chronic (10) Asymmetrical sensorineural hearing loss: Status: Acute (11) SOB (shortness of breath) on exertion: Status: Acute (12) Basal cell carcinoma of left side of nose: Status: Acute
--- NOTE | 2023-02-25 09:37 | W.PM.ENDDOP ---
Date of service: 02/25/23 Time of Service: 09:38 Endoscopy Report DATE OF PROCEDURE: 02/25/23 PRE-OP DIAGNOSIS: gerd/nodule upperesophagus POST-OP DIAGNOSIS: same PROCEDURE: EGD w/ bx SURGEON: Deana Mendez ANESTHESIA TYPE: General:No Airway ESTIMATED BLOOD LOSS: 1 PATHOLOGY: other COMPLICATIONS: None DISPOSITION: same day PROCEDURE DESCRIPTION: After informed consent was obtained the patient was take to the procedure room and placed in a supine position. Monitors were applied and a time out was done. The patients name, date of , procedure type, allergies to medications and metal in their body was reviewed. A bite block was placed and the patient was sedated. Once sedated and comfortable the gastroscope was advanced through the oropharynx which was grossly normal into the esophagus. The proximal and mid-esophagus there was a nodule in the upper esophagus. This was biopsied.. In the distal esophagus there was nl noted. There is no esophageal erosions, varices, diverticula, or strictures visualized today. The scope was advanced into the stomach and through the pylorus into the 3rd portion of the duodenum. The duodenum was noted to be normal. Biopsies were done, all specimen is retrieved and no bleeding is noted. The scope was retracted back into the stomach and biopsies were done to rule out H. pylori. There were no ulcers/gastritis. The scope was retroflexed. The cardia and fundus were noted to be normal. There is no hiatal hernia noted. The scope was retracted back into the esophagus and biopsies were done of the GE junction to rule out Croft's. The Z line was regular. The GE junction was at 38 cm. The scope was removed and the patient was woken up and taken back to [facility] in stable condit
--- NOTE | 2023-02-25 10:00 | W.ANESPOSTOP ---
Postoperative Evaluation Date, Time and Location Date Performed: 02/25/23 Time Performed: 09:20 Patient Location: Day Surgery Unit Vital Signs Most Recent Imported Vital Signs: Most Recent Vital Signs Temp Pulse Resp BP Pulse Ox 36.3 C L 77 16 101/82 96 02/25/23 09:20 02/25/23 09:20 02/25/23 09:20 02/25/23 09:20 02/25/23 09:20 Pain Score Most Recent Pain Score: Most Recent Pain Score Pain Level 0 02/25/23 09:20 Assessment Mental Status: Awake (Alert & Oriented to Patient Baseline) Airway and Respiratory Function: Patent airway with normal (patient baseline) respiratory exam Cardiovascular Function: Hemodynamically Stable Hydration Status: Adequately Hydrated Nausea & Vomiting: No Nausea or Vomiting Pain: Pt. Denies Any Pain Peripheral Nerve Block: Patient did not receive a nerve block
[2023-02-25 10:01] VITALS: BP 108/88; PULSE 69; RESP 16; TEMP 36.2; O2SAT 96
--- NOTE | 2023-02-25 10:48 | COLE_ITS ---
Date of service: 02/25/23 Time of Service: 10:48 Colonoscopy Report Date of procedure: 02/25/23 Pre-op diagnosis general: Villous adenoma at 20 cm Post-op diagnosis procedure note: other (Polyp/river diverticula) Surgeon: Deana Mendez Anesthesia Type: Primary Nerve Block Estimated blood loss (mL): 1 Pathology: other Complications: None Disposition: same day Prep: Miralax/Dulcolax Retraction Time: 12 Procedure Description: Aft er informed consent was obtained the patient was taken to the procedure room and placed in a left decubitous position. Monitors were applied and a time out was done. The patients name, date of , procedure, allergies to medications and metal in their body was reviewed. The patient was then sedated. Once sedated and comfortable a rectal exam was done. External exam : External hemorrhoidal tags. internal exam revealed a normal sphincter tone and no palpable masses. The scope was then introduced and retrofelexed. Grade I x3 columns internal hemorrhoids were identified. The scope was then advanced to the cecum w/out difficulty. The TI and appendiceal orifice were identified. The prep was BBPS 3 in all segments for a total of 9. The scope was then slowly retracted o sukumar 12 minutes back into the rectum. He has moderate amounts of small mouthed diverticuli that do carry all the way over to the cecum. There is no signs of active bleeding or infection. He has a small flat 5 mm polyp at 40 cm. This is removed with a cold biting forcep. The area of the previous villous is visualized at 20 cm. This has been had 2. There were times three 5 mm flat polyps that were removed with a cold biting forcep. All specimen is retrieved and no bleeding is noted. The mucosa is otherwise pink and healthy with a normal vascular pattern the scope was removed and the patient was woken up and taken back to Same day surgery in stable condition. The patient tolerated the procedure well and there were no immediate complications. Follow up: The patient should follow up in 3-5 years path pending,, unless they develop changes in bowel habits or other new gastrointestinal complaints.
== END 2023-02-25 10:25 | disposition home or self-care (01) ==
PROVIDERS: PCP Student in an Organized Health Care Education/Training Program; Visit Provider Surgery
PROC: (CPT 45380; principal; 2023-02-25 08:45)
DX: K21.9 Gastro-esophageal reflux disease without esophagitis (principal); K64.0 First degree hemorrhoids; K63.5 Polyp of colon; K57.30 Diverticulosis of large intestine without perforation or abscess without bleeding; K22.89 Other specified disease of esophagus; F12.90 Cannabis use, unspecified, uncomplicated; F10.10 Alcohol abuse, uncomplicated; J44.9 Chronic obstructive pulmonary disease, unspecified; I10 Essential (primary) hypertension; I71.40 Abdominal aortic aneurysm, without rupture, unspecified; R91.1 Solitary pulmonary nodule; Z86.010 Personal history of colon polyps
CPT/HCPCS: 45380; 43239; 88305

== ENCOUNTER 2024-02-06 01:58 | Outpatient (CLI) | payer MEDICAID, SELFPAY ==
[2024-02-06 19:04] LABS: PSA, Screening 0.4 ng/mL (<=4.5)
== END 2024-02-06 01:59 | disposition home or self-care (01) ==
LOC: LBO 01:58
PROVIDERS: PCP Student in an Organized Health Care Education/Training Program; Referring Provider Student in an Organized Health Care Education/Training Program; Visit Provider Student in an Organized Health Care Education/Training Program
DX: Z12.71 Encounter for screening for malignant neoplasm of testis (principal)
CPT/HCPCS: 36415; 84153

== ENCOUNTER 2024-03-19 08:34 | Outpatient (REF) | payer MEDICAID, SELFPAY ==
[2024-03-19 16:02] LABS: HGB 15.7 g/dL (13.5-17.5)
[2024-03-19 16:29] LABS: Vitamin D 25 Total 35.2 ng/mL (30-100)
[2024-03-19 16:34] LABS: ALT 29 U/L (16-63); AST 19 U/L (15-37); Albumin 4.1 g/dL (3.4-5.0); Alkaline Phosphatase 93 U/L (46-116); Anion Gap 13.3 mmol/L (3-11); BUN 16 mg/dL (7-18); Bilirubin, Total 0.8 mg/dL (0.2-1.0); CO2 23.7 mmol/L (21.0-32.0); CREATININE 0.8 mg/dL (0.70-1.30); Calculated LDL 151 mg/dL (<100); Chloride 104 mmol/L (98-107); Cholesterol 232 mg/dL (<200); Estimated GFR 100.06 (mL/min/1.73m2); Folate 7.5 ng/mL (8.6-20.0); Glucose 112 mg/dL (74-106); HDL Cholesterol 68 mg/dL (40-60); Potassium 4.3 mmol/L (3.5-5.1); Sodium 141 mmol/L (136-145); Total Protein 7.5 g/dL (6.4-8.2); Triglyceride 69 mg/dL (<150); Vitamin B12 482 pg/mL (193-986)
== END 2024-03-19 08:35 | disposition home or self-care (01) ==
LOC: LBN 08:34
PROVIDERS: PCP Student in an Organized Health Care Education/Training Program; Visit Provider Student in an Organized Health Care Education/Training Program
DX: I10 Essential (primary) hypertension (principal); K90.9 Intestinal malabsorption, unspecified; K21.9 Gastro-esophageal reflux disease without esophagitis; R06.02 Shortness of breath; I71.40 Abdominal aortic aneurysm, without rupture, unspecified; J44.9 Chronic obstructive pulmonary disease, unspecified; Z79.899 Other long term (current) drug therapy
CPT/HCPCS: 80053; 80061; 82306; 82607; 82746; 85018

== ENCOUNTER → 2024-04-12 01:36 | Outpatient (CLI) | payer MEDICAID, SELFPAY ==
--- NOTE | 2024-04-12 15:40 | DI.CTLCSR_ITS ---
Exam(s) CT CHEST LUNG CANCER SCREEN EXAM: CT CHEST LUNG CANCER SCREEN CLINICAL HISTORY: Screening for lung cancer,current smoker, f17.200 TECHNIQUE: Imaging Protocol: Axial computed tomography images with coronal and sagittal reformatted images were created and reviewed COMPARISON: CT CT CHEST LUNG CANCER SCREEN from 09/20/[address] THORAX ABD/PEL CTA from 11/01/2022 FINDINGS: Tracheobronchial tree: Patent where visualized. No evidence of bronchiectasis. Pulmonary parenchyma: Centrilobular emphysematous changes are present. Scarring is again seen in the lung bases. No focal consolidating infiltrates are seen. Lung Nodules: There is no change in the nodule in the left lingula. No new pulmonary nodules are see n. Mediastinum and Hilda: No dominant adenopathy or fluid collection. The esophagus is unremarkable. Thyroid gland: Unremarkable. Lymph nodes: Unremarkable. Pleura: No effusion or pneumothorax. Heart: The heart is not dilated. Coronary artery calcifications are present. No pericardial effusion . Aorta: Thoracic aorta non-dilated.Atherosclerotic calcification is present. Upper abdomen: There is a 4.6 x 4.3 cm infrarenal abdominal aortic aneurysm. Soft Tissues: Unremarkable. Bones: Within normal limits for the patient's age. IMPRESSION: 1. Stable pulmonary nodule. No new pulmonary nodules. 2. 4.6 x 4.3 cm infrarenal abdominal aortic aneurysm. Previously this measured 4.5 x 4.1 cm. Lung RADS Cat 2 - Benign Appearance / Behavior: Nodules with a very low likelihood of becoming a clin ically active cancer due to size or lack of growth Lung-RADS 1.0 CATEGORIES: Category 0 - Prior chest CT exam(s) being located for comparison. Category 1 - Annual screening in 12 months. No nodules or definitely benign nodules. Category 2 - Annual screening in 12 months. Benign appearance. Nodules with low likelihood of becomin g active cancer. Category 3 - 6-month follow-up. Probably benign. Short-term follow-up suggested. Nodules with low lik elihood of becoming active cancer. Category 4A - 3-month follow-up and CT/PET if >8 mm in size. Suspicious finding. Findings which requi re additional testing. Category 4B - Findings which require additional testing and tissue sampling. Suspicious finding. Category 4X - Category 3 or 4 nodules with additional features or imaging findings that increases the suspicion of malignancy. Modifier S- Potentially clinically significant finding. (Non lung cancer) RADIATION DOSE DELIVERED: 79.69mGy.cm Total DLP 79.69mGy.cmTotal DLP DATA REPOSITORY: All CT scans at this facility are submitted to the National Radiology Data Registry (NRDR) Dose Index Registry (DIR) with the [employer] (ACR). RADIATION OPTIMIZATION: All CT scans at this facility use at least one of these dose optimization te chniques: automated exposure control; mA and/or kV adjustment per patient size (includes targeted exa ms where dose is matched to clinical indication); or iterative reconstruction.
== END ==
PROVIDERS: PCP Student in an Organized Health Care Education/Training Program; Visit Provider Student in an Organized Health Care Education/Training Program
DX: F17.200 Nicotine dependence, unspecified, uncomplicated (principal); Z12.2 Encounter for screening for malignant neoplasm of respiratory organs; R91.1 Solitary pulmonary nodule
CPT/HCPCS: 71271

== ENCOUNTER 2025-08-02 04:19 | Emergency (ER) | payer MEDICAID, SELFPAY ==
--- NOTE | 2025-08-02 04:21 | W.ED.GENAD ---
Discharge Plan Discharge Details Chief Complaint: Abd Prob Primary Care Provider: Mignon Stewart ED Provider: Danyel Salazar Home Meds and New Rx's Prescriptions: No Action naproxen sodium [Aleve] 220 mg tablet 220 mg PO BID PRN albuterol sulfate 90 mcg/actuation HFA aerosol inhaler 2 puff Inhalation Q4H PRN Qty: 1 3RF Rx Instructions: Use daily thru fall/winter; increase to q4H when needed or directed (DME) Space Chamber Plus 1 EACH spacer Miscellaneous Qty: 1 lisinopril 10 mg tablet 10 mg PO DAILY Qty: 90 0RF loratadine [Claritin] 10 mg tablet 10 mg PO DAILY Qty: 90 1RF Rx Instructions: DAILY through allergy seasons fluticasone propion-salmeterol [Advair Diskus] 250-50 mcg/dose blister with device See Rx Instructions .ROUTE .COMPLEX Qty: 60 2RF Dose Instruction: INHALE ONE PUFF BY MOUTH EVERY DAY Rx Instructions: INHALE ONE PUFF BY MOUTH EVERY DAY. FILL WITH BRAND ADVAIR. THIS IS WHAT [place] MED[place] C[place]. HPI General Mode of arrival: ambulatory. Date/Time Provider Initiated Documentation: 08/02/25 04:21. Limitations to Documentation: no limitations. Information obtained by: patient, RN notes reviewed and old records reviewed. HPI Narrative: Patient presents to ED with abdominal pain for the last 3 days. Initially woke up with it Friday night. Thought it was heartburn and has taken antacids. Also feels constipated and has tried fleets enema as well as Dulcolax with no relief. Pain initially upper abdomen now seems to be more lower abdomen. Decreased appetite and does not feel like eating. No nausea vomiting. No fever that he is aware of. No real chest pain or shortness of breath, more epigastric pain when it first started. Does have a history of inguinal hernia repair as well as a known AAA last measured at 4.7 cm. Denies any urinary symptoms. Related Data Home Medications ?Medication ?Instructions ?Recorded ?Confirmed inhalational spacing device (Space ##1 10/24/17 08/02/25 Chamber Plus) naproxen sodium 220 mg tablet 220 mg PO BID PRN 01/24/23 08/02/25 (Aleve) albuterol sulfate 90 mcg/actuation 2 puff inhalation Q4H PRN ##1 09/24/24 08/02/25 aerosol inhaler lisinopril 10 mg tablet 10 mg PO DAILY #90 tabs 03/14/25 08/02/25 fluticasone 250 mcg-salmeterol 50 See Rx Instructions .Route 04/26/25 08/02/25 mcg/dose blistr powdr for .COMPLEX #60 ea inhalation (Advair Diskus) loratadine 10 mg tablet (Claritin) 10 mg PO DAILY #90 tabs 04/26/25 08/02/25 Previous Rx's ?Medication ?Instructions ?Recorded albuterol sulfate 90 mcg/actuation 2 puff inhalation Q4H PRN ##1 09/24/24 aerosol inhaler lisinopril 10 mg tablet 10 mg PO DAILY #90 tabs 03/14/25 fluticasone 250 mcg-salmeterol 50 See Rx Instructions .Route 04/26/25 mcg/dose blistr powdr for .COMPLEX #60 ea inhalation (Advair Diskus) loratadine 10 mg tablet (Claritin) 10 mg PO DAILY #90 tabs 04/26/25 Allergies Allergy/AdvReac Type Severity Reaction Status Date / Time No Known Allergies Allergy Verified 08/02/25 04:27 Exam Narrative Exam Narrative: Const: WDWN male in NAD. VS per triage. HEENT: NC/AT. Normal facial exam. Neck: Supple. Trachea midline. Lungs: Normal respiratory effort. GI: Soft/ND. Tender with voluntary guarding in RUQ. Back: No CVAT Neuro: A+O x 3. Normal speech, mentation, gait. Cranial nerves II - XII grossly intact. No gross motor or sensory deficit. Medical Decision Making Patient presenting to ED with worsening abdominal pain over 3 days associated with decreased appetite and constipation. Initially epigastric in nature now he seems to feel it more in the lower abdomen left side but on exam is tender with guarding in the right upper quadrant. Does have a history of AAA followed by vascular surgery at [facility]. Did not really have chest pain but did feel like he had indigestion and heart burn when it started. Seems reasonable to check EKG and troponin though I do not think this is cardiac in nature. Tenderness would suggest possibility of gallbladder problem. Will check abdominal labs as well as CT scan of the abdomen pelvis. Patient's laboratory studies fairly unremarkable. CBC is normal. Liver function with a total bili of 1.4 but normal transaminases. Lipase is normal. Troponin is normal. CT scan per preliminary radiology read suggests some stranding around the pancreatic head suggesting pancreatitis. No gallstones noted on CT. Of note his AAA has enlarged from 4.7 to 5.2. I discussed this with him and he has not yet had his yearly follow-up with [facility]. He is strongly encouraged to do so. Also noted to possibly have some narrowing and thickening in the transverse colon. He did have colonoscopy in 2022 which was relatively clean. This can be followed up with PCP and/or surgery. Patient continues to have discomfort and continues to remain tender in the right upper quadrant. I will give him a dose of IV pantoprazole on the chance that this may be acid related but will hold for a formal right upper quadrant ultrasound to evaluate liver, gallbladder, bile duct and pancreatic head. Patient will be signed over to oncoming ED physician, Dr. Hernandez, will follow up on ultrasound results and reevaluate patient for disposition. Medical Records Medical records reviewed: Yes I reviewed the patient's medical records. Medical records narrative: [facility] vascular note Imaging Data Radiologic Study: Imaging: CT Scan Radiologist's impression: IMPRESSION: 1. Findings consistent with pancreatitis. 2. Infrarenal abdominal aortic aneurysm as described above. (5.4cm) 3. Focal thickening in the proximal transverse colon. This could be transient but an underlying lesion such as neoplasm cannot be excluded. Consider follow-up. 4. Additional findings as above. Thank you for allowing us to participate in the care of your patient. Dictated and Authenticated by: Winter Mancuso MD Lab Data Lab results reviewed: Yes I reviewed the patient's lab results. Lab results narrative: see [facility] ECG Data Attestation: I personally reviewed and interpreted this ECG (s) as follows: Interpretation: see MDM/EKG PFSH All Active Problems Hypertension (Chronic) Continued elevated BP Continuous cannabis use (Acute) Alcohol abuse, daily use (Acute) GERD (gastroesophageal reflux disease) (Chronic) Borderline systolic HTN (Acute) Lung nodule seen on imaging study (Acute) Presently benign-appearing 3 millimeter left upper lobe nodule. Lung RADS Cat 2S - Benign Appearance / Behavior: Nodules with a very low likelihood of becoming a clinically active cancer due to size or lack of growth - ANNUAL SCREENING. AAA (abdominal aortic aneurysm) without rupture (Acute) 07/05/24 [facility] [place]: AAA 4.7 cm, popliteal duplex w/o aneurysm, continues to smoke 1 ppd. Repeat 1 yr, smoking cessation & alarm sx discussed at that visit.HE Small inc per Chest CT (04/12/24)(4.6 x 4.3 cm infrarenal aaa VS 4.5 x 4.1 cm). US: 4.5cm. [facility] vascular 12/23. Repeat US in 6m & stop smoking COPD (chronic obstructive pulmonary disease) (Chronic 12/2017) Dx during acute exacerbation with bronchitis, possible unDx pneumonia. Daily Serevent has made a big difference, along with reducing tobacco use. Tobacco dependence (Chronic 12/23/13) Tolerating patch, but did fall off and re-start smoking. Partially 2' stress, work- partner smoked. Will re-start quitting process, 01/28/19. Tried nicotine patch x2-3 weeks, tolerated, but re-started smoking. Will set a new quit date. 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 Colonoscopy [ ] Family Hx MO. SOB (shortness of breath) on exertion (Acute 12/2018) overall improved breathing, but continued SOB with exertion despite the cold weather needs monitoring.. Resting when outside; using inhaler before going/working outside which hekps. 01/28/19, ik Basal cell carcinoma of left side of nose (Acute 03/24/19) bx done 03/24/[address] Mendez Testicle trouble (Acute) Condyloma acuminatum of penis (Acute) Umbilical hernia (Acute) Actinic keratosis due to exposure to sunlight (Acute) Medical History Actinic keratosis (~07/2024) 07/26/[address] to treat R lateral orbital fold. Colon cancer screening Polyps, 2020 .. seen in 07/2023 Left inguinal hernia Surgical History History of colonoscopy (~01/2023) 07/2021, 01/2023 History of left inguinal hernia repair (~01/25/20) History of basal cell carcinoma excision left nose Family History Father Colon cancer Mother Lymphoma Social History Smoking/Tobacco Use Status: Current every day Tobacco Type: cigarettes Quit status: not considering quitting Smoking risk assessment performed?: Yes Alcohol Intake: current Alcohol Intake frequency: 3 or more drinks per day Alcohol type: hard liquor Drug use: Socially Substance use type: former substance user Date of last use: 07/20/2017 and marijuana Details: HS 02/25/23: last had a drink 02/23/23 Household members: significant other Housing: house Number of Children: 0 Communication Needs: None 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
[2025-08-02 04:22] VITALS: BP 158/89; PULSE 98; RESP 16; TEMP 36.8; O2SAT 98
--- NOTE | 2025-08-02 04:30 | RT.EKG_ITS ---
APPROVED REPORT Exam: Resting ECG Reason for Exam: epigastric pain Patient Location: E HR:87 bpm ECG Measurements Heart Rate 87 AXIS NH 169 P 19 QRSd 89 QRS 43 QT 357 T 30 QTc 430 Conclusion Sinus rhythm...normal P axis, V-rate 60- 99 Normal Electrocardiogram
--- NOTE | 2025-08-02 04:30 | DI.CT_ITS ---
Exam(s) CT ABDOMEN PELVIS W EXAM: CT ABDOMEN PELVIS W CLINICAL HISTORY: abdominal pain x3 day; RUQ tenderness. TECHNIQUE: Imaging Protocol: Axial computed tomography images with coronal and sagittal reformatted images were created and reviewed CONTRAST MATERIAL: Intravenous: Omnipaque 350 Contrast volume:75 ml Oral: no COMPARISON: CT CT THORAX ABD/PEL CTA from 11/01/2022 FINDINGS: ABDOMEN and PELVIS: Lung Bases: No acute findings. Liver: Normal density. No suspicious mass. Gallbladder and biliary tract: No radiodense calculus. No wall thickening or pericholecystic fluid. No biliary dilation. Pancreas: Normal density. Mild stranding around the head, consistent with mild pancreatitis. No evidence of pseudocyst. Pancreatic duct is not dilated. No abnormal calcifications. No evidence of mass. Spleen: Normal. Kidneys: Normal size, contour and axis. No radiodense stones. No obstructive uropathy. No suspicious masses seen. Adrenal glands: No masses seen. Vasculature: Abdominal aorta measures 5.1 cm in the infrarenal portion which has increased in size compared with the previous exam met where it measured 4.1 x 4.5 cm. There is significant mural thrombus which contains some calcification. Soft tissues: Unremarkable. Bladder: No gross wall thickening. No calculi.No focal mass. Bowel: No obstruction. No bowel wall thickening. Appendix normal. Mild diverticulosis of the descending and sigmoid colon.. No evidence of diverticulitis. Peritoneal cavity: No ascites. No focal collection. No free air. Bones: Unremarkable for age. Reproductive organs: Unremarkable. Lymph nodes: No pathologically enlarged lymph nodes. IMPRESSION:: Stranding in the fat surrounding the pancreatic head consistent with mild pancreatitis. No visible gallstones. No biliary dilatation or pancreatic ductal dilatation. Interval mild increase in size of abdominal aortic aneurysm, now 5.1 cm. The preliminary [facility] report was reviewed. RADIATION DOSE DELIVERED: 337.22mGy.cm Total DLP DATA REPOSITORY: All CT scans at this facility are submitted to the National Radiology Data Registry (NRDR) Dose Index Registry (DIR) with the [employer] (ACR). RADIATION OPTIMIZATION: All CT scans at this facility use at least one of these dose optimization techniques: automated exposure control; mA and/or kV adjustment per patient size (includes targeted exams where dose is matched to clinical indication); or iterative reconstruction.
[2025-08-02] MEDS: Normal Saline 1,000 ML 1000 ML IV (04:48)
[2025-08-02 04:49] LABS: Abs Immature Grans 0.03 10^3/uL (0.0-0.06); HCT 44.2 % (40.0-50.0); HGB 15.4 g/dL (13.5-17.5); Immature Grans % 0.3 %; MCH 31.4 pg (27.0-33.0); MCHC 34.8 % (32.0-36.0); MCV 90 fL (80-95); MPV 9.6 fL (8.0-11.0); Platelet Count 223 10^3/uL (130-400); RBC 4.91 10^6/uL (4.36-5.78); RDW 13.1 % (11.8-14.1); RDW-SD 43.1 fL; WBC 9.39 10^3/uL (4.4-10.8)
[2025-08-02 05:07] LABS: Troponin I 4 ng/L (<or=76)
[2025-08-02 05:12] LABS: ALT 19 U/L (16-63); AST 16 U/L (15-37); Albumin 4.0 g/dL (3.4-5.0); Alkaline Phosphatase 103 U/L (46-116); Anion Gap 10.5 mmol/L (3-11); BUN 14 mg/dL (7-18); Bilirubin, Total 1.4 mg/dL (0.2-1.0); CO2 28.5 mmol/L (21.0-32.0); Calcium 9.8 mg/dL (8.5-10.1); Chloride 97 mmol/L (98-107); Estimated GFR 95.97 (mL/min/1.73m2); Glucose 117 mg/dL (74-106); Lipase 43 U/L (<78); Potassium 4.3 mmol/L (3.5-5.1); Sodium 136 mmol/L (136-145); Total Protein 8.6 g/dL (6.4-8.2)
[2025-08-02] MEDS: Omnipaque 350 MG/ML 100 ML BTL IJ (05:16)
[2025-08-02] MEDS: Normal Saline - Diluent 50 ML VIAL IJ (05:17)
[2025-08-02] MEDS: Normal Saline Flush 10 ML SYR IVP (05:18)
--- NOTE | 2025-08-02 05:50 | DI.[facility]_ITS ---
PROCEDURE INFORMATION: Exam: CT Abdomen And Pelvis With Contrast Exam date and time: 08/02/2025 5:18 AM Age: 64 years old Clinical indication: Generalized; Prior surgery; Surgery date: 6+ months; Surgery type: Hernia repair; Abdominal pain x3 day; Ruq tenderness TECHNIQUE: Imaging protocol: Computed tomography of the abdomen and pelvis with contrast. Radiation optimization: All CT scans at this facility use at least one of these dose optimization techniques: automated exposure control; mA and/or kV adjustment per patient size (includes targeted exams where dose is matched to clinical indication); or iterative reconstruction. Contrast material: OMNIPAQUE 350; Contrast volume: 75 ml; Contrast route: INTRAVENOUS (IV); COMPARISON: CT THORAX ABD/PEL CTA 11/01/2022 3:51 PM FINDINGS: Liver: Borderline hepatomegaly. Gallbladder and biliary ducts: No radiodense gallbladder calculi seen. Pancreas: Mild fat stranding adjacent to the pancreatic head. Spleen: No splenomegaly. Adrenal glands: Mild adrenal thickening. Kidneys and ureters: No hydronephrosis or evidence for pyelonephritis. Stomach and bowel: No intestinal obstruction is evident. Colonic diverticula. Focal narrowing and thickening in the proximal transverse colon. Appendix: No evidence of appendicitis. Intraperitoneal space: No free air. Vasculature: Atherosclerotic changes in the aorta and its branches. 5.4 cm infrarenal abdominal aortic aneurysm. Small amount of contrast noted in the thrombosed portion of the aneurysm anteriorly. Lymph nodes: No acute findings. Urinary bladder: Distended bladder. Reproductive: No acute findings. Bones/joints: No pertinent acute abnormality seen. Soft tissues: No pertinent acute abnormality seen. IMPRESSION: 1. Findings consistent with pancreatitis. 2. Infrarenal abdominal aortic aneurysm as described above. 3. Focal thickening in the proximal transverse colon. This could be transient but an underlying lesion such as neoplasm cannot be excluded. Consider follow-up. 4. Additional findings as above. Dictated and Authenticated by: Winter Mancuso MD. Orderin Martin Montaño MD
--- NOTE | 2025-08-02 06:00 | DI.US_ITS ---
Exam(s) US ABDOMEN LIMITED EXAM: US ABDOMEN LIMITED CLINICAL HISTORY: RUQ tenderness; CT w ? pancreatitis TECHNIQUE: Ultrasound of the right upper quadrant performed using standard protocol. COMPARISON: CT CT ABDOMEN PELVIS W from 08/02/2025 FINDINGS: LIVER: Normal size. Mildly increased echogenicity, consistent with mild hepatic steatosis. Focal area of fatty sparing adjacent to the gallbladder fossa. No suspicious liver lesions are seen. GALLBLADDER: No evidence of cholelithiasis. No evidence of wall thickening. No pericholecystic fluid identified. LOGAN'S SIGN: Negative. BILIARY SYSTEM: No intrahepatic or extrahepatic biliary ductal dilation. RIGHT KIDNEY: Normal size. No evidence of renal calculi. No evidence of hydronephrosis. No suspicious renal mass. No cyst identified. PANCREAS: Normal where visualized. No fluid is visible around the pancreas. No localized pseudocyst. ABDOMINAL AORTA AND IVC: Visualized from atherosclerotic calcifications. Abdominal aortic aneurysm partially visualized. ASCITES: None seen. IMPRESSION: Mild fatty steatosis. No evidence of gallstones or gallbladder wall thickening. No biliary dilatation. DATA REPOSITORY:
[2025-08-02] MEDS: Pantoprazole 40 MG VIAL IVP (06:15)
[2025-08-02 06:18] VITALS: BP 119/82; PULSE 79; PULSE 80; RESP 16; O2SAT 97
[2025-08-02 06:18] LABS: Glucose Negative (Negative)
[2025-08-02 06:19] VITALS: BP 119/82; PULSE 79
[2025-08-02 07:03] VITALS: PULSE 79; O2SAT 98
[2025-08-02 07:04] VITALS: BP 124/92; PULSE 83; TEMP 36.9; O2SAT 97
--- NOTE | 2025-08-02 07:17 | W.EDPROG ---
Date of service: 08/02/25 Time of Service: 07:37 Medical Decision Making In brief, this is a 64-year-old male patient who presented to the emergency department with abdominal and back/flank pain for the last few days. Prior to my taking over his care the patient had a laboratory workup that was reassuring, notable for a slightly elevated bilirubin to 1.4, had a negative troponin and urinalysis. His CT scan was concerning for pancreatitis, and at the time that I took over his care from the prior provider his disposition was pending ultrasound to evaluate for gallstones/cholecystitis. He had incidental note of an expansion of his abdominal aortic aneurysm, for which he was already following with [facility] and understands he needs to continue to do so. The patient is currently comfortable, not complaining of nausea. Ultrasound was reviewed, showing hepatic steatosis but no evidence of gallbladder pathology. After discussing the patient's daily alcohol use with him I am most suspicious for alcoholic pancreatitis. I counseled him on cessation of alcohol, good hydration and clear liquid diet. He was able to tolerate oral intake while in our emergency department and I am reassured that he will be able to continue to maintain hydration in the outpatient environment. At this time, the patient has had a full medical evaluation and is safe for discharge to home. They are hemodynamically stable, ambulatory, and tolerating PO. They are understanding of the follow-up plan and return precautions. They left our facility without incident. Chelsea Hernandez MD Medical Records Medical records reviewed: Yes I reviewed the patient's medical records. Lab Data Lab results reviewed: Yes I reviewed the patient's lab results. Discharge Plan Disposition Patient Disposition: Home Condition: Stable Discharge Details Clinical Impression: Pancreatitis, Alcohol abuse, daily use, GERD (gastroesophageal reflux disease), AAA (abdominal aortic aneurysm) without rupture, Hepatic steatosis Primary Care Provider: Mignon Stewart ED Provider: Chelsea Hernandez Home Meds and New Rx's Prescriptions: New omeprazole 20 mg capsule,delayed release(DR/EC) 20 mg PO DAILY Qty: 14 0RF No Action naproxen sodium [Aleve] 220 mg tablet 220 mg PO BID PRN albuterol sulfate 90 mcg/actuation HFA aerosol inhaler 2 puff Inhalation Q4H PRN Qty: 1 3RF Rx Instructions: Use daily thru fall/winter; increase to q4H when needed or directed (DME) Space Chamber Plus 1 EACH spacer Miscellaneous Qty: 1 lisinopril 10 mg tablet 10 mg PO DAILY Qty: 90 0RF loratadine [Claritin] 10 mg tablet 10 mg PO DAILY Qty: 90 1RF Rx Instructions: DAILY through allergy seasons fluticasone propion-salmeterol [Advair Diskus] 250-50 mcg/dose blister with device See Rx Instructions .ROUTE .COMPLEX Qty: 60 2RF Dose Instruction: INHALE ONE PUFF BY MOUTH EVERY DAY Rx Instructions: INHALE ONE PUFF BY MOUTH EVERY DAY. FILL WITH BRAND ADVAIR. THIS IS WHAT [place]. Discharge Instructions Instructions: Acute pancreatitis Additional Instructions: You were seen in the emergency department today for evaluation of discomfort in your abdomen and back, and were found on CT scan to have evidence of pancreatitis. You had an ultrasound that did not show any gallstones or changes in your gallbladder, though you were noted to have some fatty changes to your liver. The most likely reason for these changes to your liver and your episode of pancreatitis is your increase in alcohol use this weekend. The remainder of your workup was quite reassuring and is going to be safe for us to get you home today. Please maintain good hydration, and trial a clear liquid diet for the next few days until your symptoms start to improve. Additionally, I do recommend that you decrease or stop drinking alcohol as this can cause worsening of pancreatitis symptoms. Your primary care provider will want to reevaluate you in the next few days to ensure that your symptoms are improving. I did provide you with a prescription for omeprazole to take for your GERD, if this medication is effective your primary care provider may choose to prescribe it for a longer period of time. Reasons to return to the emergency department include a sudden or severe change or worsening of your pain, inability to eat or drink, or development of chest pain, shortness of breath, etc. Thank you for allowing us to be part of your care.
[2025-08-02 09:14] VITALS: BP 118/81; PULSE 77; RESP 16; O2SAT 98
== END 2025-08-02 09:22 | disposition home or self-care (01) ==
PROVIDERS: Emergency Medicine; Emergency Provider Emergency Medicine; PCP Student in an Organized Health Care Education/Training Program
DX: K85.90 Acute pancreatitis without necrosis or infection, unspecified (principal); F10.10 Alcohol abuse, uncomplicated; K21.9 Gastro-esophageal reflux disease without esophagitis; I71.40 Abdominal aortic aneurysm, without rupture, unspecified; K76.0 Fatty (change of) liver, not elsewhere classified
CPT/HCPCS: 99285; 99284; 36415; 96374; 00123; 80053; 83690; 93005; 96361; 74177; 76705; 81003; 84484; 85025; 93010; J2470; J3490

== ENCOUNTER 2025-08-19 01:04 | Outpatient (CLI) | payer MEDICAID, SELFPAY ==
[2025-08-19 08:36] LABS: ALT 22 U/L (16-63); AST 17 U/L (15-37); Albumin 3.8 g/dL (3.4-5.0); Alkaline Phosphatase 84 U/L (46-116); Bilirubin, Total 0.7 mg/dL (0.2-1.0); Calculated LDL 133 mg/dL (<100); Cholesterol 215 mg/dL (<200); HDL Cholesterol 48 mg/dL (>or=40); Total Protein 7.6 g/dL (6.4-8.2); Triglyceride 171 mg/dL (<150)
[2025-08-19 08:47] LABS: Amylase 56 U/L (25-115); Bilirubin, Direct 0.2 mg/dL (0.0-0.2)
== END 2025-08-19 01:05 | disposition home or self-care (01) ==
LOC: LBO 01:04
PROVIDERS: PCP Student in an Organized Health Care Education/Training Program; Referring Provider Nurse Practitioner Family; Visit Provider Nurse Practitioner Family
DX: Z00.00 Encounter for general adult medical examination without abnormal findings (principal); K85.90 Acute pancreatitis without necrosis or infection, unspecified; K76.0 Fatty (change of) liver, not elsewhere classified
CPT/HCPCS: 36415; 80061; 80076; 82150